=== PATIENT | male | born 1935 | race Caucasian/White ===

== ENCOUNTER 2016-03-30 10:10 | Emergency (ER) | payer MEDICARE ==
[~2016-03-30] VITALS: Ht 175.3 cm; Wt 63.5 kg
[~2016-03-30 10:10] MED LIST: AMARYL 2MG TABLE2 MG PO; AMLODIPINE5 M1 PO; ASPIRIN ADULT L81 M3 PO; CIPRO 250MG TA250 MG PO; DIFLUCAN150 MG PO; DIGOXIN0.125 MG PO; Docusate Sodiu100 MG PO; FISH OIL1000 MG PO; FLAGYL500 M1 PO; FUROSEMIDE40 MG PO; GLYBURIDE 5MG TA5 MG PO; HYDROCODONE/ACE1 TA5 PO; IBU-2200 MG OR; IBUPROFEN800 MG PO; KEFLEX 500MG.500 MG PO; LEVOTHYROXIN0.025 M2 PO; LEVOTHYROXIN0.075 M1 PO; LISINOPRIL 5MG T5 MG PO; LORTAB 5/500 501 TAB PO; LORTAB 500 MG-71 TAB; LOSARTAN POTAS100 MG PO; METFORMIN HCL1000 MG PO; METFORMIN500 MG PO; NITROFURANTOIN100 M2; OMEPRAZOLE40 MG PO; POTASSIUM CHLO10 ME3 PO; PREVALITE 4GM PO4 GM OR; PREVALITE 4GM PO4 GM PO; PRILOSEC20 MG PO
--- NOTE | 2016-03-30 10:22 | Emergency Room Report ---
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 Clinical Suspician of Infection? Mental Status: Sepsis Risk: Have you (or family members/close friends) recently traveled outside the [place]? If Yes, where/when: Have you had exposure to infectious disease within the past month? TB? Other? Specify: Source patient, RN notes reviewed, EMS Exam Limitations clinical condition Comment Pt called out as a possible stroke but when EMS arrived his glucose was 48. IV started and given 1 amp D50 and on arrival in the ED Glucose>200 and pt. alert and answers questions appropriately. His mucous membranes are dry and he is telling us he needs to urinate. Given urinal. [place] stroke evaluation is normal. He does have some mild drooping of the right side of his mouth but tongue protrudes in the midline. He has no arm drift and no leg drift Cardiac Chest Pain Chest pain indicative of cardiac No ALLERGIES Coded Allergies: Penicillins (I-RASH 03/30/16) chlordiazepoxide (STOPPED KIDNEYS 03/30/16) clidinium (STOPPPED KIDNEYS 03/30/16) darifenacin (From ENABLEX) (STOPPED KIDNEYS 03/30/16) iodine (ANXIETY/RASH 03/30/16) oxycodone (VOMITTING/HICCUPS 03/30/16) Home Medications Active Scripts Omeprazole (Omeprazole 40MG) 40 MG PO DAILY #30 ECC Ref 5 Prov: 01/08/16 Reported Medications Aspirin (Aspirin EC) 81 MG PO DAILY DIGOXIN (Digox) 0.0625 MG PO DAILY METFORMIN HCL (Metformin 1000MG) 1,000 MG PO BIDD Levothyroxine Sodium (Levothyroxine 0.075MG) 0.075 MG PO DAILY Furosemide (Furosemide 40MG) 40 MG PO DAILY OMEGA-3 FATTY ACIDS/FISH OIL (Fish Oil 1,000 MG Capsule) 1,000 MG PO DAILY POTASSIUM CHL (Potassium Chloride) 10 MEQ PO DAILY Amlodipine Besylate (Amlodipine) 5 MG PO DAILY Losartan Potassium (Losartan 100MG) 100 MG PO DAILY History Medical History General CAD? Yes Angina: Yes [place]: No Hypertension? Yes Hyperlipidemia? Yes CHF? No DVT? No PE? No COPD? Yes Asthma? No Anemia? No GERD? Yes Gastric ulcers? No GI Bleed? No Hernia? No Thyroid Problems? Yes Hypothyroidism? Yes CVA? No Seizures? No Diabetes? Yes Insulin Dependent: No Insulin Pump: No Home FSBS? Yes Renal Insuffiency? No End Stage Renal Disease? No UTI? Yes Stones? No BPH? No GB Disease: Yes Nephritic Syndrome? No Asplenia? No Hepatitis? Yes Sickle Cell Disease? No Arthritis? Yes Migraines? No Cataracts? No Glaucoma? No MRSA? No HIV? No TB? No Anxiety? No Depression? No Cancer? Yes Site: PROSTATE More? No Immunization Hx DT/Tetanus Unknown Flu 2016 Pneumonia Received In Past Surgical Hx Previous Surgery?Y RT TOTAL HIP REPLACEMENT Prostate Appendix ARTIF URINARY SPHINCTER L. 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 Musculoskeletal see HPI Psychiatric/Neurological see HPI Physical Exam Vital Signs Vital Signs Date Time Temp Pulse Resp B/P Pulse O2 O2 Flow FiO2 Ox Delivery Rate 03/30 1110 75 18 130/68 98 03/30 1011 98.1 101 18 161/114 98 - WBC >12,000 or <4,000 or 10% bands? 2 or more SIRS Criteria Met? B/P:130/68 MAP:129 Creatinine >2.0? UA output<0.5ml/kg/hr for 2 hrs? Platelet count >100,000? Lactate >2.0mmol/1? INR >1.2 or PTT > than 60 sec? Evidence of Organ Dysfunction? Provider documented clinical suspician of infection? N Sepsis Criteria Count: 1 Sepsis Risk: Low Sepsis Risk General Appearance normal appearance, WD/WN, no apparent distress Eye Exam - bilateral eye normal exam Ear, Nose, Throat dry mucous membranes Respiratory Status No: respiratory distress. Lung Sounds bilateral: normal breath sounds. 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 No Results/Orders Laboratory Tests 03/30/16 1120: POC Glucose 108 03/30/16 1040: Lactic Acid 1.6 03/30/16 0915: Digoxin 0.38 L 03/30/16 0915: Sodium 138, Potassium 3.3 L, Chloride 102, Carbon Dioxide 20 L, BUN 18, Creatinine 0.9, Estimated Creat Clear 60, Estimated GFR (MDRD) 81, Glucose 49 *L , Calcium 9.1, Total Bilirubin 0.3, AST 15, ALT 23, Alkaline Phosphatase 66, Total Protein 7.5, Albumin 3.6, Globulin 3.9 H, Albumin/Globulin Ratio 0.9 L, WBC 9.2, RBC 5.61, Hgb 15.2, Hct 45.9, MCV 81.7 L, RDW 15.3, Plt Count 342, MPV 5.6 L, Gran % 82.2 H, Gran # 7.6, Lymphocytes % 13.3, Monocytes % 4.0, Eosinophils % 0.2, Basophils % 0.3, Lymphocytes # 1.2, Monocytes # 0.4, Eosinophils # 0.0, Basophils # 0.0, PUBS MCHC 33.3, MCH 27.2, Acetone Level NONE DETECTED 03/30/16 0101: Urine Color YELLOW, Urine Appearance SL CLOUDY, Urine pH 6.0, Ur Specific [place] 1.015, Urine Protein TRACE H, Urine Ketones NEGATIVE, Urine Blood 2+ H , Urine Nitrate NEGATIVE, Urine Bilirubin NEGATIVE, Urine Urobilinogen 0.2, Ur Leukocyte Esterase NEGATIVE, Urine RBC 5-10, Urine WBC 5-10, Ur Squamous Epith Cells OCC, Urine Bacteria 2+, Urine Glucose NEGATIVE Current Medication Orders Sig/Lazaro Start time Last Medication Dose Route Stop Time Status Admin Levofloxacin/Dextrose 100 ML ONCE ONE 03/30 1130 CKDr IV 03/30 1229 Sodium Chloride 1,000 ML .STK-MED ONE 03/30 1101 DC IV Sodium Chloride 10 ML PRN PRN 03/30 1030 AC IV 03/31 1016 Sodium Chloride 10 ML PRN PRN 03/30 1015 AC IV 03/31 1015 Sodium Chloride 1,000 ML .Q8H 03/30 1015 AC 03/30 IV 03/30 2215 1116 Orders Procedure Date/time Status DIET-NOTHING BY MOUTH 03/30 L Active FINGERSTICK BLOOD SUGAR 03/30 1120 Active DIGOXIN 03/30 1109 Complete ELECTROCARDIOGRAM REQUEST 03/30 1022 Active ELECTROCARDIOGRAM REQUEST 03/30 1021 Active CULTURE, BLOOD 03/30 1020 Active ARTERIAL BLOOD GAS REQUEST 03/[address] HEAD REQ 03/30 1017 Complete CHEST-AP VIEW ONLY 03/30 1017 Active IV SALINE LOCK 03/30 1017 Active CULTURE, BLOOD 03/30 1017 Active URINALYSIS/COMPLETE 03/30 1017 Complete LACTIC ACID 03/30 1017 Complete CBC WITH AUTO DIFF 03/30 1017 Complete CHEM 12 PROFILE 03/30 1017 Complete Acetone, Serum 03/30 1017 Complete CULTURE, URINE 03/30 0101 Active CM/EKG CM/EKG EKG rate (88), non-spec. ST/Twave chgs, Atrial Fibrillation Departure Departure Time of Disposition 1200 Disposition DC Home or Self Care(routine) Clinical Impression Primary Impression: Type 2 diabetes mellitus with hypoglycemia Qualifiers: Diabetes mellitus complication detail: without coma Diabetes mellitus long term care social worker insulin use: without nursing home use Qualified Code: E11.649 - Type 2 diabetes mellitus with hypoglycemia without coma Secondary Impressions: Cystitis without hematuria Condition STABLE Referrals Tawny Wilson MD (Family) Patient Instructions DI for Hypoglycemia, DI for Urinary Tract Infection (UTI), Hypoglycemia, Urinary Tract Infection Additional Instructions Encourage liquids and oral intake and check sugars more frequently. Followup with Dr. Wilson in 4 to 5 days to recheck Urine Discharge Counseling Counseled pt/family regarding diagnosis, test results, medications/RX, home care, follow up needs Prescriptions Current Visit Scripts Levofloxacin (Levaquin 500MG) 500 MG PO DAILY #10 TAB ED Critical Care Critical Care No If Critical Care minutes are documented, the time involved in the performance of seperately reportable procedures was not counted toward critical care time documented. I directly delivered medical care to this critically ill and/or injured patient. Timely evaluation and treatment was necessary to address the significant organ system(s) dysfunction present in this patient. at 1127
[2016-03-30 10:27] LABS: URINE BILIRUBIN - DIPSTICK NEGATIVE (NEG); URINE BLOOD 2+ (NEG)
[2016-03-30 10:31] LABS: LYMPH # 1.2 K/mm3 (0.7-4.5); LYMPH % 13.3 % (10-50)
[2016-03-30 10:32] LABS: HEMOGLOBIN 15.2 g/dL (14.1-18.0)
[2016-03-30 10:34] LABS: URINE SQUAMOUS CELLS OCC #/hpf (OCC)
[2016-03-30 10:35] LABS: BUN 18 mg/dL (7-18); GFR (ESTIMATED) 81 ML/MIN (>60)
--- NOTE | 2016-03-30 11:03 | RADIOLOGY REPORT PS360 ---
CT HEAD W/O CONTRAST HISTORY: Confusion, altered mental status, altered level consciousness CONFUSED ORDERING PHYSICIAN: Francis Molina MD PATIENT AGE: 80 years COMPARISON: 03/18/2012 TECHNIQUE: Axial images obtained without contrast. Brain and bone windows reviewed. FINDINGS: No midline shift, mass effect, intracranial hemorrhage, hydrocephalus, or extra-axial fluid collection is evident. 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 The calvarium has an unremarkable appearance. Minimal amount fluid in right mastoid sinus.. The visualized paranasal sinuses are unremarkable. IMPRESSION: 1. No acute intracranial pathology. 2. Involutional changes of age. ,
[2016-03-30] MEDS ORDERED: LEVAQUIN500 MG PO (11:26)
--- NOTE | 2016-03-30 11:58 | RADIOLOGY REPORT PS360 ---
CHEST-AP VIEW ONLY HISTORY: CONFUSED ORDERING PHYSICIAN: Francis Molina MD PATIENT AGE: 80 years FINDINGS: Borderline cardiomegaly without failure. Lungs are clear. No acute bony anomalies. IMPRESSION: No change from 01/07/2016 with no acute finding
[2016-03-30 12:55] VITALS: BP 119/62
== END 2016-03-30 12:56 | disposition home or self-care (01) ==
LOC: ER 10:10
PROVIDERS: General Practice
DX: E11.69 Type 2 diabetes mellitus with other specified complication (principal); N30.00 Acute cystitis without hematuria; K21.9 Gastro-esophageal reflux disease without esophagitis; J44.9 Chronic obstructive pulmonary disease, unspecified; I10 Essential (primary) hypertension; Z79.899 Other long term (current) drug therapy

== ENCOUNTER 2016-10-29 12:15 | Emergency (ER) | payer MEDICARE ==
[~2016-10-29] VITALS: Ht 180.3 cm; Wt 94.3 kg
[~2016-10-29 12:15] MED LIST changes: +AMLODIPINE10 M2 PO; +FLOMAX 0.4MG C0.4 MG PO; +HYDROCODONE-APA1 TA1 PO; +LEVAQUIN500 MG PO
--- NOTE | 2016-10-29 14:23 | Emergency Room Report ---
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 N Clinical Suspician of Infection? N Mental Status: 1 - Regular (Normal Baseline) Sepsis Risk:Low Sepsis Risk Have you (or family members/close friends) recently traveled outside the [place]? N If Yes, where/when: Have you had exposure to infectious disease within the past month? N TB? Other? Specify: I read the above triage, The [place] is well known to me from prior ED visit. The son is telling me that he is diabetic and he has leg numbness, he has eedema of the feet and it is worse today, and he took his lasix, he denies soa, cp or paplitation. He just wants him checked. Source patient, RN notes reviewed, family, old records Exam Limitations no limitations ALLERGIES Coded Allergies: Penicillins (I-RASH 03/30/16) chlordiazepoxide (STOPPED KIDNEYS 03/30/16) clidinium (STOPPPED KIDNEYS 03/30/16) darifenacin (From ENABLEX) (STOPPED KIDNEYS 03/30/16) iodine (ANXIETY/RASH 03/30/16) oxycodone (VOMITTING/HICCUPS 03/30/16) Home Medications Active Scripts Omeprazole (Omeprazole 40MG) 40 MG PO DAILY #30 ECC Ref 5 Prov: 01/08/16 Reported Medications Aspirin (Aspirin EC) 81 MG PO DAILY DIGOXIN (Digox) 0.0625 MG PO DAILY Levothyroxine Sodium (Levothyroxine 0.075MG) 0.075 MG PO DAILY Furosemide (Furosemide 40MG) 40 MG PO DAILY OMEGA-3 FATTY ACIDS/FISH OIL (Fish Oil 1,000 MG Capsule) 1,000 MG PO DAILY POTASSIUM CHL (Potassium Chloride) 10 MEQ PO DAILY Losartan Potassium (Losartan 100MG) 100 MG PO DAILY TAMSULOSIN HCL (Flomax 0.4MG) 0.4 MG PO QHS Amlodipine Besylate (Amlodipine) 10 MG PO History Medical History General CAD? Yes Angina: Yes [place]: No Hypertension? Yes Hyperlipidemia? Yes CHF? No DVT? No PE? No COPD? Yes Asthma? No Anemia? No GERD? Yes Gastric ulcers? No GI Bleed? No Hernia? No Thyroid Problems? Yes Hypothyroidism? Yes CVA? No Seizures? No Diabetes? Yes Insulin Dependent: No Insulin Pump: No Home FSBS? Yes Renal Insuffiency? No End Stage Renal Disease? No UTI? Yes Stones? No BPH? No GB Disease: Yes Nephritic Syndrome? No Asplenia? No Hepatitis? Yes Sickle Cell Disease? No Arthritis? Yes Migraines? No Cataracts? No Glaucoma? No MRSA? No HIV? No TB? No Anxiety? No Depression? No Cancer? Yes Site: PROSTATE More? No Immunization Hx DT/Tetanus 1-4 Years Ago Flu 2016-17FSN Pneumonia Received In Past Surgical Hx Previous Surgery?Y RT TOTAL HIP REPLACEMENT Prostate Appendix ARTIF URINARY SPHINCTER L. 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 VARICOSE VEINS X3 BACK SX X3, METAL JOVANI SPRINTHER PUMP UROLOGY GALLBLADDER L HIP REDUCTION Family History Family Hx Diabetes Yes CAD Yes Hypertension No Hyperlipidemia No Cancer Yes TB No Social History Smoking Hx Smoker: Former Smoker Tobacco: No Type Cigarettes Packs/day N/A Are you/the child exposed to second-hand smoke: Yes Alcohol Alcohol: No Review of Systems All Other Systems Reviewed and Negative Constitutional no symptoms reported Eyes no symptoms reported ENT no symptoms reported. Respiratory no symptoms reported Cardiovascular no symptoms reported Gastrointestinal no symptoms reported Genitourinary no symptoms reported. Musculoskeletal see HPI (pedal edema ) Skin no symptoms reported Psychiatric/Neurological no symptoms reported Physical Exam Vital Signs Vital Signs Date Time Temp Pulse Resp B/P Pulse O2 O2 Flow FiO2 Ox Delivery Rate 10/29 1430 77 20 145/80 97 10/29 1332 66 18 138/65 97 10/29 1225 97.7 74 18 146/71 96 - WBC >12,000 or <4,000 or 10% bands? 2 or more SIRS Criteria Met? B/P:138/65 MAP:96 Creatinine >2.0? UA output<0.5ml/kg/hr for 2 hrs? Platelet count >100,000? Lactate >2.0mmol/1? INR >1.2 or PTT > than 60 sec? Evidence of Organ Dysfunction? Provider documented clinical suspician of infection? N Sepsis Criteria Count: 0 Sepsis Risk: Low Sepsis Risk General Appearance normal appearance, WD/WN Eye Exam - bilateral eye normal exam, bilateral eye PERRL, bilateral eye EOMI Ear, Nose, Throat hearing grossly normal, normal ENT inspection Neck normal inspection, non-tender, supple, full range of motion Respiratory Status Yes: trachea midline, chest symmetrical, non tender chest. No: respiratory distress. Lung Sounds bilateral: normal breath sounds, lungs clear. Cardiovascular normal exam, regular rate/rhythm, no peripheral edema, no gallop, no JVD, no murmur, no rub, normal peripheral pulses Peripheral Pulses Pulses normal Yes Gastrointestinal normal bowel sounds, normal exam, non tender, soft, no organomegaly Extremities non-tender, swelling, 2+ bilateral pedal edema, equal and symmetrical calf tenderness Neurologic alert, normal exam, stocking anthesia of both LE. Skin skin changes consistent with long-standing diabetes. Include "diabetes diabetecorum" Medical Decision Making LABS/Meds/Orders Pt receiving controlled substance in ED? No Results/Orders Laboratory Tests 10/29/16 1500: Digoxin Pending 10/29/16 1455: Sodium 140, Potassium 2.6 *L, Chloride 101, Carbon Dioxide 30, BUN 7, Creatinine 1.0, Estimated Creat Clear 79, Estimated GFR (MDRD) 72, Glucose 294 H, Calcium 8.1 L, Total Bilirubin 0.6, AST 13 L, ALT 16, Alkaline Phosphatase 111, Troponin I 0.02, B-Natriuretic Peptide 179 H, Total Protein 7.3, Albumin 3.7, Globulin 3.6 H, Albumin/Globulin Ratio 1.0 L, WBC 6.0, RBC 4.86, Hgb 12.4 L, Hct 38.5 L, MCV 79.3 L, RDW 15.6, Plt Count 290, MPV 6.7 L, Gran % 59.0, Gran # 3.5, Lymphocytes % 31.7, Monocytes % 4.4, Eosinophils % 4.0, Basophils % 0.9, Lymphocytes # 1.9, Monocytes # 0.3, Eosinophils # 0.2, Basophils # 0.1, PUBS MCHC 32.3, MCH 25.6 L Current Medication Orders Sig/Lazaro Start time Last Medication Dose Route Stop Time Status Admin Potassium Chloride 0 .STK-MED ONE 10/29 1542 DC PO Potassium Chloride 40 MEQ ONCE ONE 10/29 1530 DC PO 10/29 1531 Orders Procedure Date/time Status DIGOXIN 10/29 1528 Active TROPONIN I 10/29 1423 Complete CBC WITH AUTO DIFF 10/29 1423 Complete CHEM 12 PROFILE 10/29 1423 Complete BRAIN NATRIURETIC PEPTIDE 10/29 1423 Complete CM/EKG CM/EKG Comments Normal sinus rhythm 66/m baseline artifact no acute findings XRAY/CT/US XRAY/CT/US XRAY chest XR interpretation by reviewed by me Xray Results normal/NAD Departure Departure Time of Disposition 1421 Disposition DC Home or Self Care(routine) Clinical Impression Primary Impression: Pedal edema Secondary Impressions: Diabetic neuropathy, S/P hip replacement Condition STABLE Referrals Katie BURT,Tawny Gill (PCP/Family) Additional Instructions The chico and his son were aware of the left perihialr mass and being followed by Dr. Wilson. His potassium was low, was given 40 meq and was instructed to take an additional 40 meq at 8 PM tonight and recheck with Dr. Almanzar tomorrow for another blood work. I called dr. Wilson and he agreed with the DC and follow up and to call in am to be seen same day. Dr. Mancia Discharge Counseling Counseled pt/family regarding diagnosis, test results, medications/RX, home care, follow up needs ED Critical Care Critical Care No If Critical Care minutes are documented, the time involved in the performance of seperately reportable procedures was not counted toward critical care time documented. I directly delivered medical care to this critically ill and/or injured patient. Timely evaluation and treatment was necessary to address the significant organ system(s) dysfunction present in this patient. at 1540
[2016-10-29 15:03] LABS: HEMOGLOBIN 12.4 g/dL (14.1-18.0); LYMPH # 1.9 K/mm3 (0.7-4.5); LYMPH % 31.7 % (10-50)
--- NOTE | 2016-10-29 15:27 | RADIOLOGY REPORT PS360 ---
CHEST(2 VIEWS-NOT PORTABLE) HISTORY: Shortness of breath edema ORDERING PHYSICIAN: Octavia Mancia MD PATIENT AGE: 81 years COMPARISON: 03/31/2016 FINDINGS: Unremarkable cardiovascular structures. There is a new nodular density in the left perihilar region which measures 2 x 1.6 cm this nodule is present well circumscribed but has developed since the previous exam. Neoplasm is considered.. There are fibrotic changes in the left midlung laterally. Right lung is clear. No acute bony anomalies. IMPRESSION: New 2 x 1.6 and a left perihilar nodule suspicious for neoplasm. Consider chest CT for further evaluation ER was notified of the results by phone 10/29/2016 at 1520 hours
[2016-10-29 15:48] VITALS: BP 145/80
== END 2016-10-29 15:49 | disposition home or self-care (01) ==
LOC: ER 12:15
PROVIDERS: Emergency Medicine
DX: R60.9 Edema, unspecified (principal); E11.42 Type 2 diabetes mellitus with diabetic polyneuropathy; Z96.642 Presence of left artificial hip joint; Z79.82 Long term (current) use of aspirin; Z79.899 Other long term (current) drug therapy; I25.10 Atherosclerotic heart disease of native coronary artery without angina pectoris; I10 Essential (primary) hypertension; Z87.891 Personal history of nicotine dependence; E78.5 Hyperlipidemia, unspecified; J44.9 Chronic obstructive pulmonary disease, unspecified; E03.9 Hypothyroidism, unspecified

== ENCOUNTER 2016-12-30 13:53 | Inpatient (IN) | payer MEDICARE ==
[~2016-12-30] VITALS: Ht 180.3 cm; Wt 79.9 kg
[2016-12-30 13:56] VITALS: BP 161/98
--- OUTSIDE RECORDS SUMMARY | 2016-12-30 14:05 | External Medical Summary Rpt | CCD ---
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
--- OUTSIDE RECORDS SUMMARY | 2016-12-30 14:05 | External Medical Summary Rpt | CCD ---
Author Author , THELMA RENEE Address Unknown Phone [email or web address] Immunization Name Date Rout CVX Reac Dose Comm Prov Is Faci e tion ent ider Refu lity Give sed n Infl 09-2 Intr 135 0.5 Hist D049 No D049 uenz 2-20 amus mL oric 01 01 a, 17 cula al High r Info rmat Dose ion - Sour ce Unsp ecif ied PCV1 06-0 Intr 133 999 Hist D049 No D049 3 2-20 amus oric 01 01 17 cula al r Info rmat ion - Sour ce Unsp ecif ied
--- OUTSIDE RECORDS SUMMARY | 2016-12-30 14:05 | External Medical Summary Rpt | CCD ---
Author Author [employer] Organization [employer] Address Unknown Phone Unavailable Purpose Continuity of Care Document - through 2016
--- OUTSIDE RECORDS SUMMARY | 2016-12-30 14:05 | External Medical Summary Rpt | CCD ---
Author Author , THELMA RENEE Address Unknown Phone [email or web address] Immunization Name Date Rout CVX Reac Dose [...]
--- OUTSIDE RECORDS SUMMARY | 2016-12-30 14:06 | External Medical Summary Rpt ---
Author Author [facility], [facility] [employer] Organization [facility] [employer] Address Unknown Phone Unavailable Results Digoxin [Mass/volume] in Serum or Plasma Observa Value Referen Units Interpr Notes Date tion ce etation Range Digoxin 1.15 - ng/mL Low No Sep 12 [Mass/vol 2.56 informati 2017 3:00 ume] in on in PM Serum or source Plasma data Natriutietic peptide B [Mass/volume] in Serum or Plasma Observa Value Referen Units Interpr Notes Date tion ce etation Range Natriutie 0 - 100 pg/mL High No Sep 12 tic informati 2017 2:55 peptide B on in PM source [Mass/vol data ume] in Serum or Plasma Comprehensive metabolic 2000 panel in Serum or Plasma Observa Value Referen Units Interpr Notes Date tion ce etation Range Albumin/G 1.1 - 1.8 No Low No Sep 12 lobulin informati informati 2017 2:55 [Mass on in on in PM ratio] in source source Serum or data data Plasma Albumin 3.4 - 5.0 gm/dL Normal No Sep 12 [Mass/vol informati 2017 2:55 ume] in on in PM Serum or source Plasma data Alkaline 46 - 116 U/L Normal No Sep 12 phosphata informati 2017 2:55 se on in PM [Enzymati source c data activity/ volume] in Serum or Plasma Bilirubin 0.2 - 1.0 mg/dL Normal No Sep 12 .total informati 2017 2:55 [Mass/vol on in PM ume] in source Serum or data Plasma Urea 7 - 18 mg/dL Normal No Sep 12 nitrogen informati 2017 2:55 [Mass/vol on in PM ume] in source Serum or data Plasma Calcium 8.5 - mg/dL Low No Sep 12 [Mass/vol 10.1 informati 2017 2:55 ume] in on in PM Serum or source Plasma data Chloride 98 - 107 mmoL/L Normal No Sep 12 [Moles/vo informati 2017 2:55 lume] in on in PM Serum or source Plasma data Carbon 21.0 - mmoL/L Normal No Sep 12 dioxide, 32.0 informati 2017 2:55 total on in PM [Moles/vo source lume] in data Serum or Plasma Creatinin 0.70 - mg/dL Normal No Sep 12 e 1.30 informati 2017 2:55 [Mass/vol on in PM ume] in source Serum or data Plasma Creatinin 50 - 200 ML/MIN Normal No Sep 12 e renal informati 2017 2:55 clearance on in PM source predicted data by Cockcroft -Gault formula Estimated >60 ML/MIN No REFERENCE Sep 12 informati RANGE: 2017 2:55 glomerula on in >60 PM r source ML/MIN/1. filtratio data 73 SQUARE n rate METERSIf (GF this patient is -A merican, then multiply theresult by 1.210. Globulin 1.3 - 3.2 gm/dL High No Sep 12 [Mass/vol informati 2017 2:55 ume] in on in PM Serum source data Glucose 74 - 106 mg/dL High No Sep 12 [Mass/vol informati 2017 2:55 ume] in on in PM Serum or source Plasma data Potassium 3.5 - 5.1 mmoL/L Low alert Sep 12 2016 2:55 [Moles/vo CRITICAL PM lume] in RESULTS Serum or Plasma RESU LTS CALLED TO: [facility] 10/29/16 1523 Huber,[place] nda Sodium 136 - 145 mmoL/L Normal No Sep 12 [Moles/vo informati 2017 2:55 lume] in on in PM Serum or source Plasma data Aspartate 15 - 37 U/L Low No Sep 12 informati 2017 2:55 aminotran on in PM sferase source [Enzymati data c activity/ volume] in Serum or Plasma Alanine 12 - 78 U/L Normal No Sep 12 aminotran informati 2017 2:55 sferase on in PM [Enzymati source c data activity/ volume] in Serum or Plasma Protein 6.4 - 8.2 gm/dL Normal No Sep 12 [Mass/vol informati 2017 2:55 ume] in on in PM Serum or source Plasma data Troponin I.cardiac [Mass/volume] in Serum or Plasma Observa Value Referen Units Interpr Notes Date tion ce etation Range Troponin 0.00 - ng/mL Normal No Sep 12 I.cardiac 0.06 informati 2016 2:55 on in PM [Mass/vol source ume] in data Serum or Plasma CBC W Auto Differential panel in Blood Observa Value Referen Units Interpr Notes Date tion ce etation Range Basophils 0 - 0.2 K/MM3 Normal No Sep 12 inform2016 2:55 [#/volume on in PM ] in source Blood by data Automated count Basophils 0.1 - 2.0 % Normal No Sep 12 /100 informati 2016 2:55 leukocyte on in PM s in source Blood by data Automated count Eosinophi 0.0 - 0.4 K/mm3 Normal No Sep 12 ls informati 2016 2:55 [#/volume on in PM ] in source Blood by data Automated count Eosinophi 0.1 - % Normal No Sep 12 ls/100 12.0 informati 2016 2:55 leukocyte on in PM s in source Blood by data Automated count Granulocy 1.3 - 8.0 K/mm3 Normal No Sep 12 ramos informati 2016 2:55 [#/volume on in PM ] in source Blood by data Automated count Granulocy 37.0 - % Normal No Sep 12 ramos/100 80.0 informati 2016 2:55 leukocyte on in PM s in source Blood by data Automated count Hematocri 42.0 - % Low No Sep 12 t [Volume 52.0 informati 2016 2:55 on in PM Fraction] source of Blood data Hemoglobi 14.1 - g/dL Low No Sep 12 n 18.0 informati 2016 2:55 [Mass/vol on in PM ume] in source Blood data Lymphocyt 0.7 - 4.5 K/mm3 Normal No Sep 12 es informati 2016 2:55 [#/volume on in PM ] in source Unspecifi data ed specimen by Automated count Lymphocyt 10 - 50 % Normal No Sep 12 es informati 2016 2:55 [#/volume on in PM ] in source Unspecifi data ed specimen by Automated count Erythrocy 27 - 31.2 pg Low No Sep 12 te mean informati 2016 2:55 corpuscul on in PM ar source hemoglobi data n [Entitic mass] Erythrocy 31.8 - g/dl Normal No Sep 12 te mean 35.4 informati 2016 2:55 corpuscul on in PM ar source hemoglobi data n concentra tion [Mass/vol ume] by Automated count Erythrocy 82.2 - fl Low No Sep 12 te mean 97.8 informati 2016 2:55 corpuscul on in PM ar volume source [Entitic data volume] by Automated count Monocytes 0.1 - 1.0 K/mm3 Normal No Sep 12 informati 2017 2:55 [#/volume on in PM ] in source Blood by data Automated count Monocytes 1.7 - 9.3 % Normal No Sep 12 /100 informati 2017 2:55 leukocyte on in PM s in source Blood by data Automated count Platelet 7.4 - fl Low No Sep 12 mean 10.4 informati 2017 2:55 volume on in PM [Entitic source volume] data in Blood by Automated count Platelets 142 - 424 K/mm3 Normal No Sep 12 informati 2017 2:55 [#/volume on in PM ] in source Blood data Erythrocy 4.6 - 6.2 M/mm3 Normal No Sep 12 ramos informati 2016 2:55 [#/volume on in PM ] in source Amniotic data fluid Erythrocy 11.5 - % Normal No Sep 12 te 17.5 informati 2016 2:55 distribut on in PM ion width source [Entitic data volume] by Automated count Leukocyte 4.8 - K/MM3 Normal No Sep 12 s 10.8 informati 2016 2:55 [#/volume on in PM ] in source Blood data
--- OUTSIDE RECORDS SUMMARY | 2016-12-30 14:06 | External Medical Summary Rpt ---
[...] Serum or Plasma RESU LTS CALLED TO: [facility] 10/29/16 1523 Huber,[place] nda Sodium 136 - 145 mmoL/L Normal [...]
[2016-12-30 14:11] LABS: HEMOGLOBIN 12.8 g/dL (14.1-18.0); LYMPH # 4.7 K/mm3 (0.7-4.5)
--- NOTE | 2016-12-30 14:18 | RADIOLOGY REPORT PS360 ---
CT HEAD W/O CONTRAST HISTORY: Weakness, syncope R/O STROKE ORDERING PHYSICIAN: Geo Anderson MD PATIENT AGE: 81 years COMPARISON: None TECHNIQUE: Axial images obtained without contrast. Brain and bone windows reviewed. FINDINGS: No midline shift, mass effect, intracranial hemorrhage, hydrocephalus, or extra-axial fluid collection is evident. There is generalized atrophy. The calvarium has an unremarkable appearance. Small amount fluid is present in left mastoid sinus. The visualized paranasal sinuses are unremarkable. IMPRESSION: 1. Atrophy, no acute intracranial findings. 2. Left mastoid effusion. 3. There is no evidence of intracranial hemorrhage, focal mass, or acute territorial infarction. A negative CT does not exclude an acute CVA. A follow-up head CT or MRI is recommended if neurological symptoms persist
--- NOTE | 2016-12-30 14:36 | RADIOLOGY REPORT PS360 ---
CHEST-PORTABLE HISTORY: Chest pain and shortness of breath with weakness WEAKNESS ORDERING PHYSICIAN: Geo Anderson MD PATIENT AGE: 81 years COMPARISON: 10/29/2016 FINDINGS: The cardiomediastinal silhouette and pulmonary vascularity are within normal limits. There is an enlarging left upper lobe nodule measuring 2.7 x 2.4 cm previously measuring 2 x 1.6 cm consistent with neoplasm either primary or due to metastasis. The remaining lungs are clear. No acute bony anomalies. IMPRESSION: Enlarging left upper lobe nodule patient's for neoplasm either primary or metastatic. Chest CT may be of further value.
[2016-12-30 15:01] LABS: BUN 12 mg/dL (7-18)
[2016-12-30 15:06] LABS: URINE BILIRUBIN - DIPSTICK NEGATIVE (NEG); URINE BLOOD NEGATIVE (NEG)
[2016-12-30 15:06] LABS: GFR (ESTIMATED) 72 ML/MIN (>60)
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
--- OUTSIDE RECORDS SUMMARY | 2016-12-30 15:49 | External Medical Summary Rpt | CCD ---
Author Author , THELMA RENEE Address Unknown Phone [email or web address] Immunization Name Date Rout CVX Reac Dose [...]
--- OUTSIDE RECORDS SUMMARY | 2016-12-30 15:49 | External Medical Summary Rpt | CCD ---
Author Author , THELMA Organization THELMA Address Unknown Phone [email or web address] Purpose Continuity of Care Document - 10-29-2016 [...] Z96.649 PRESENCE OF UNSPECIFIED ARTIFICIAL HIP JOINT Results Labs Lab Lab Date Result Refere Interp Status Commen Order Detail nces retati t Range on Urinalysis dipstick W Reflex Microscopic panel in Urine (12-30-2016 14:55) Bacteri NONE O complet a 017 ed [Presen 14:55 ce] in Urine sedimen t by Light microsc opy Erythro NONE 0 complet cytes 017 ed [Presen 14:55 ce] in Urine sedimen t by Light microsc opy Epithel 5-10 OCC complet ial 017 ed cells.s 14:55 quamous [Presen ce] in Urine sedimen t by Microsc opy high power field Urinalysis dipstick W Reflex Microscopic panel in Urine (12-30-2016 14:55) Appeara CLEAR CLEAR complet nce of 017 ed Urine 14:55 Bilirub NEGATIV NEG complet in 017 E ed [Presen 14:55 ce] in Urine by Test strip Erythro NEGATIV NEG complet cytes 017 E ed [Presen 14:55 ce] in Urine Color YELLOW YELLOW complet of 017 ed Urine 14:55 Ketones TRACE NEG Abnorma complet 017 l ed [Presen 14:55 ce] in Urine by Automat ed test strip Mucus NEGATIV NEG complet [Presen 017 E ed ce] in 14:55 Urine sedimen t by Light microsc opy Nitrite NEGATIV NEG complet 017 E ed [Presen 14:55 ce] in Urine by Test strip Urobili 0.2 NEG complet nogen 017 ed [Presen 14:55 ce] in Urine by Test strip
--- OUTSIDE RECORDS SUMMARY | 2016-12-30 15:49 | External Medical Summary Rpt | CCD ---
Author Author , THELMA RENEE Address Unknown Phone [email or web address] Immunization Name Date Rout CVX Reac Dose [...]
--- OUTSIDE RECORDS SUMMARY | 2016-12-30 15:49 | External Medical Summary Rpt | CCD ---
Author Author , THELMA Organization THELMA Address Unknown Phone [email or web address] Purpose Continuity of Care Document - 10-29-2016 [...]
--- OUTSIDE RECORDS SUMMARY | 2016-12-30 15:50 | External Medical Summary Rpt ---
Author Author THELMA Garcia, [facility] [employer] Organization [facility] [employer] Address Unknown Phone Unavailable Results Urinalysis dipstick W Reflex Microscopic panel in Urine Observa Value Referen Units Interpr Notes Date tion ce etation Range Appeara CLEAR CLEAR No No No Dec 30 nce of informa informa informa 2017 Urine tion in tion in tion in 2:55 PM source source source data data data Bacteri NONE O No No No Dec 30 a informa informa informa 2016 [Presen tion in tion in tion in 2:55 PM ce] in source source source Urine data data data sedimen t by Light microsc opy Bilirub NEGATIV NEG No No No Dec 30 in E informa informa informa 2016 [Presen tion in tion in tion in 2:55 PM ce] in source source source Urine data data data by Test strip Erythro NEGATIV NEG No No No Dec 30 cytes E informa informa informa 2016 [Presen tion in tion in tion in 2:55 PM ce] in source source source Urine data data data Color YELLOW YELLOW No No No Dec 30 of informa informa informa 2016 Urine tion in tion in tion in 2:55 PM source source source data data data Glucose NEG No High No Dec 30 [Mass/vol informati informati 2016 2:55 ume] in on in on in PM Urine by source source Test data data strip Ketones TRACE NEG mg/dL Abnorma No Dec 30 l informa 2016 [Presen tion in 2:55 PM ce] in source Urine data by Automat ed test strip Mucus NEGATIV NEG No No No Dec 30 [Presen E informa informa informa 2016 ce] in tion in tion in tion in 2:55 PM Urine source source source sedimen data data data t by Light microsc opy Nitrite NEGATIV NEG No No No Dec 30 E informa informa informa 2016 [Presen tion in tion in tion in 2:55 PM ce] in source source source Urine data data data by Test strip pH of 5.0 - 8.5 No Normal No Dec 30 Urine informati informati 2017 2:55 on in on in PM source source data data Protein NEG mg/dL No No Dec 30 [Mass/vol informati informati 2016 2:55 ume] in on in on in PM Urine by source source Automated data data test strip Erythro NONE 0 rbc/hpf No No Dec 30 cytes informa informa 2016 [Presen tion in tion in 2:55 PM ce] in source source Urine data data sedimen t by Light microsc opy Specific 1.005 - No Normal No Dec 30 gravity 1.030 informati informati 2016 2:55 of Urine on in on in PM source source data data Epithel 5-10 OCC #/hpf No No Dec 30 ial informa informa 2016 cells.s tion in tion in 2:55 PM quamous source source data data [Presen ce] in Urine sedimen t by Microsc opy high power field Urobili 0.2 NEG E.U./dL No No Dec 30 nogen informa informa 2016 [Presen tion in tion in 2:55 PM ce] in source source Urine data data by Test strip Leukocyte O wbc/hpf No No Dec 30 s informati informati 2016 2:55 [#/volume on in on in PM ] in source source Urine data data Urinalysis dipstick W Reflex Microscopic panel in Urine Observa Value Referen Units Interpr Notes Date tion ce etation Range Appeara CLEAR CLEAR No No No Dec 30 nce of informa informa informa 2016 Urine tion in tion in tion in 2:55 PM source source source data data data Bilirub NEGATIV NEG No No No Dec 30 in E informa informa informa 2016 [Presen tion in tion in tion in 2:55 PM ce] in source source source Urine data data data by Test strip Erythro NEGATIV NEG No No No Dec 30 cytes E informa informa informa 2016 [Presen tion in tion in tion in 2:55 PM ce] in source source source Urine data data data Color YELLOW YELLOW No No No Dec 30 of informa informa informa 2017 Urine tion in tion in tion in 2:55 PM source source source data data data Glucose NEG No High No Dec 30 [Mass/vol informati informati 2016 2:55 ume] in on in on in PM Urine by source source Test data data strip Ketones TRACE NEG mg/dL Abnorma No Dec 30 l informa 2016 [Presen tion in 2:55 PM ce] in source Urine data by Automat ed test strip Mucus NEGATIV NEG No No No Dec 30 [Presen E informa informa informa 2016 ce] in tion in tion in tion in 2:55 PM Urine source source source sedimen data data data t by Light microsc opy Nitrite NEGATIV NEG No No No Dec 30 E informa informa informa 2016 [Presen tion in tion in tion in 2:55 PM ce] in source source source Urine data data data by Test strip pH of 5.0 - 8.5 No Normal No Dec 30 Urine informati informati 2016 2:55 on in on in PM source source data data Protein NEG mg/dL No No Dec 30 [Mass/vol informati informati 2016 2:55 ume] in on in on in PM Urine by source source Automated data data test strip Specific 1.005 - No Normal No Dec 30 gravity 1.030 informati informati 2016 2:55 of Urine on in on in PM source source data data Urobili 0.2 NEG E.U./dL No No Dec 30 nogen informa informa 2016 [Presen tion in tion in 2:55 PM ce] in source source Urine data data by Test strip Magnesium [Moles/volume] in Unspecified specimen Observa Value Referen Units Interpr Notes Date ti ce etation Range Magnesium 1.4 - 2.2 mg/dL Normal No Dec 30 informati 2016 1:55 [Moles/vo on in PM lume] in source Unspecifi data ed specimen Amylase [Enzymatic activity/volume] in Serum or Plasma Observa Value Referen Units Interpr Notes Date ti ce etation Range Amylase 25 - 115 U/L Normal No Dec 30 [Enzymati informati 2016 1:55 c on in PM activity/ source volume] data in Serum or Plasma Lipase [Enzymatic activity/volume] in Serum or Plasma Observa Value Referen Units Interpr Notes Date ti ce etation Range Lipase 73 - 393 U/L Normal No Dec 30 [Enzymati 2016 1:55 c on in PM activity/ source volume] data in Serum or Plasma CBC W Auto Differential panel in Blood Observa Value Referen Units Interpr Notes Date tion ce etation Range Basophils 0 - 0.2 K/MM3 Normal No Dec 302016 1:55 [#/volume on in PM ] in source Blood by data Automated count Basophils 0.1 - 2.0 % Normal No Dec 30 /100 inform2016 1:55 leukocyte on in PM s in source Blood by data Automated count Eosinophi 0.0 - 0.4 K/mm3 Normal No Dec 30 ls 2016 1:55 [#/volume on in PM ] in source Blood by data Automated count Eosinophi 0.1 - % Normal No Dec 30 ls/100 12.0 inform2016 1:55 leukocyte on in PM s in source Blood by data Automated count Granulocy 1.3 - 8.0 K/mm3 Normal No Dec 30 ramos 2016 1:55 [#/volume on in PM ] in source Blood by data Automated count Granulocy 37.0 - % Normal No Dec 30 ramos/100 80.0 2016 1:55 leukocyte on in PM s in source Blood by data Automated count Hematocri 42.0 - % Low Dec 30 t [Volume 52.0 2016 1:55 on in PM Fraction] source of Blood data Hemoglobi 14.1 - g/dL Low Dec 30 n 18.0 2016 1:55 [Mass/vol on in PM ume] in source Blood data Lymphocyt 0.7 - 4.5 K/mm3 High No Dec 30 es 2016 1:55 [#/volume on in PM ] in source Unspecifi data ed specimen by Automated count Lymphocyt 10 - 50 % Normal Dec 30 es 2016 1:55 [#/volume on in PM ] in source Unspecifi data ed specimen by Automated count Erythrocy 27 - 31.2 pg Low Dec 30 te mean 2016 1:55 corpuscul on in PM ar source hemoglobi data n [Entitic mass] Erythrocy 31.8 - g/dl Low Dec 30 te mean 35.4 informati 2016 1:55 corpuscul on in PM ar source hemoglobi data n concentra tion [Mass/vol ume] by Automated count Erythrocy 82.2 - fl Low No Dec 30 te mean 97.8 informati 2016 1:55 corpuscul on in PM ar volume source [Entitic data volume] by Automated count Monocytes 0.1 - 1.0 K/mm3 Normal No Dec 30 informati 2016 1:55 [#/volume on in PM ] in source Blood by data Automated count Monocytes 1.7 - 9.3 % Normal No Dec 30 /100 informati 2017 1:55 leukocyte on in PM s in source Blood by data Automated count Platelet 7.4 - fl Low No Dec 30 mean 10.4 informati 2016 1:55 volume on in PM [Entitic source volume] data in Blood by Automated count Platelets 142 - 424 K/mm3 No Dec 30 informati informati 2016 1:55 [#/volume on in on in PM ] in source source Blood data data Erythrocy 4.6 - 6.2 M/mm3 Normal No Dec 30 ramos informati 2016 1:55 [#/volume on in PM ] in source Amniotic data fluid Erythrocy 11.5 - % Normal Dec 30 te 17.5 informati 2016 1:55 distribut on in PM ion width source [Entitic data volume] by Automated count Leukocyte 4.8 - K/MM3 High Dec 30 s 10.8 informati 2016 1:55 [#/volume on in PM ] in source Blood data Digoxin [Mass/volume] in Serum or Plasma Observa Value Referen Units Interpr Notes Date tion ce etation Range Digoxin 1.15 - ng/mL Low No Sep 12 [Mass/vol 2.56 informati 2016 3:00 ume] in on in PM Serum [...] Low No Sep 12 lobulin informati informati 2016 2:55 [Mass on in on in PM [...] Serum or Plasma RESU LTS CALLED TO: [facility] 10/29/16 1523 [place] nda Sodium 136 - 145 mmoL/L Normal No Sep 12 [Moles/vo inform2016 2:55 lume] in on in PM Serum or source Plasma data Aspartate 15 - 37 U/L Low No Sep 12 inform2016 2:55 aminotran on in PM sferase source [Enzymati data c activity/ volume] in Serum or Plasma Alanine 12 - 78 U/L Normal No Sep 12 aminotran inform2016 2:55 sferase on in PM [Enzymati source c data activity/ volume] in Serum or Plasma Protein 6.4 - 8.2 gm/dL Normal No Sep 12 [Mass/vol informati 2016 2:55 ume] in on in PM Serum or source Plasma data Troponin I.cardiac [Mass/volume] in Serum or Plasma Observa Value Referen Units Interpr Notes Date tion ce etation Range Troponin 0.00 - ng/mL Normal No Sep 12 I.cardiac 0.06 inform2016 2:55 on in PM [Mass/vol source ume] in data Serum or Plasma CBC W Auto Differential panel in Blood Observa Value Referen Units Interpr Notes Date tion ce etation Range Basophils 0 - 0.2 K/MM3 Normal No Sep 12 inform2016 2:55 [#/volume on in PM ] in source Blood by data Automated count Basophils 0.1 - 2.0 % Normal No Sep 12 /100 inform2016 2:55 leukocyte on in PM s in [...] No Sep 12 t [Volume 52.0 informati 2017 2:55 on in PM Fraction] source of Blood data Hemoglobi 14.1 - g/dL Low No Sep 12 n 18.0 informati 2017 2:55 [Mass/vol on in PM ume] in source Blood data Lymphocyt 0.7 - 4.5 K/mm3 Normal No Sep 12 es informati 2017 2:55 [#/volume on in PM ] in source Unspecifi data ed specimen by Automated count Lymphocyt 10 - 50 % Normal No Sep 12 es informati 2017 2:55 [#/volume on in PM ] in source Unspecifi data ed specimen by Automated count Erythrocy 27 - 31.2 pg Low No Sep 12 te mean informati 2017 2:55 corpuscul on in PM ar source hemoglobi data n [Entitic mass] Erythrocy 31.8 - g/dl Normal No Sep 12 te mean 35.4 informati 2017 2:55 corpuscul on in PM ar source hemoglobi data n concentra tion [Mass/vol ume] by Automated count Erythrocy 82.2 - fl Low No Sep 12 te mean 97.8 informati 2017 2:55 corpuscul on in PM ar volume [...] M/mm3 Normal No Sep 12 ramos informati 2017 2:55 [#/volume on in PM ] in source Amniotic data fluid Erythrocy 11.5 - % Normal No Sep 12 te 17.5 informati 2017 2:55 distribut on in PM ion width source [Entitic data volume] by Automated count Leukocyte 4.8 - K/MM3 Normal No Sep 12 s 10.8 informati 2016 2:55 [#/volume on in PM ] in source Blood data
--- OUTSIDE RECORDS SUMMARY | 2016-12-30 15:50 | External Medical Summary Rpt ---
[...] Serum or Plasma RESU LTS CALLED TO: [facility] 10/29/16 1523 Huber,[place] nda Sodium 136 - 145 mmoL/L Normal [...]
--- NOTE | 2016-12-30 16:32 | RADIOLOGY REPORT PS360 ---
CT CHEST W/O CONTRAST HISTORY: Solitary pulmonary nodule, chest pain, abnormal chest x-ray CHEST PAIN ORDERING PHYSICIAN: Tawny Wilson MD PATIENT AGE: 81 years TECHNIQUE: Axial images obtained without contrast. COMPARISON: Chest x-ray of the same day FINDINGS: There are few scattered small lymph nodes in the mediastinum. No mediastinal or hilar adenopathy or mass. The right main pulmonary artery is slightly prominent at 3.4 cm. There are severe coronary artery calcifications. No obvious pericardial effusion. There is a small hiatal hernia. There is evidence of old granulomatous disease. There is a 2.4 x 2.3 cm macrolobulated or soft tissue mass in the anterior segment of the left upper lobe suspicious for neoplasm. There is some minimal patchy infiltrate posterior to this nodule. No other nodules are evident. There are atelectatic changes in the lung bases. Very minimal nodularity along the right hemidiaphragm centrally measuring 6 mm nonspecific and may be due to partial volume averaging artifact. No acute bony anomalies. No effusions or lobar consolidation or collapse. IMPRESSION: 1. 2.4 cm solitary pulmonary nodule in left upper lobe which is increased in size on radiograph consistent with neoplasm and may be related to primary bronchogenic neoplasm. 2. Mild bibasilar atelectasis. 3. Small hiatal hernia. 4. Coronary artery disease
--- NOTE | 2016-12-30 16:39 | RADIOLOGY REPORT PS360 ---
CT ABD PELVIS W/O CONTRAST CLINICAL INDICATION: Abdominal pain, evaluate for metastatic disease ABD PAIN ORDERING PHYSICIAN: Tawny Wilson MD PATIENT AGE: 81 years COMPARISON: 03/20/2015 TECHNIQUE: Axial images obtained with sagittal and coronal reformats. PROCEDURE: Oral Contrast: None IV Contrast: None . FINDINGS: There is a small hiatal hernia. There are at least 4 isodense hepatic lesions. The right hepatic lobe measuring up to 6 mm and one in the left hepatic dome superiorly at 6 mm. These are nonspecific and could be due to small cysts or metastatic foci. The adrenal glands and bleeding and pancreas are unremarkable. 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 There has been a prior cholecystectomy. No obstructing renal or ureteral calculi are evident. Slight hyperdensity noted in the superior pole the left kidney at the cortical medullary junction nonspecific. No intra-abdominal mass or abnormal fluid collection is evident. Penile prosthesis is present within the gallbladder in the right lower pelvic region. The pelvis is obscured somewhat due to artifact bilateral hip prosthesis. No acute bony anomalies. There is diverticulosis of the sigmoid colon but no evidence of diverticulitis. IMPRESSION: 1. 4 isodense small liver lesions. These are too small to categorize and could very well represent small cysts. Cannot exclude the possibility of small metastasis. 3. Hiatal hernia. 4. Other nonacute findings as described above
[2016-12-30] MEDS ORDERED: IBU800 MG PO (16:43)
[2016-12-30] MEDS ORDERED: CHOLESTYRA PO (16:44)
[2016-12-30] MEDS ORDERED: REMERON SOLTAB15 MG PO (16:45)
[2016-12-30] MEDS ORDERED: RISPERDAL 0.20.25 MG PO (16:45)
[2016-12-30] MEDS ORDERED: METOLAZONE 5MG T5 MG PO (16:46)
[2016-12-30] MEDS ORDERED: TRAMADOL 50MG T50 MG PO (16:47)
[2016-12-30] MEDS ORDERED: NORCO 325 MG-51 TAB PO (16:48)
--- NOTE | 2016-12-30 16:49 | HISTORY AND PHYSICAL REPORT ---
History and Physical (FCA) Date of admission: 12/30/16 Chief complaint: Syncope History: History of Present Illness: Mr Rodriguez is an 81 year old male with a history of COPD, HLP, T2DM, DJD, Prostate CA, GERD Atrial fib, and Hypothyroidism who had a syncopal episode when in his car in the [facility] parking lot. His son was with him at the time and assisted him to the ER via wheelchair. He was felt to be having a stroke and had an immediated CT of the head which showed nothing acute. Patient did complain of CP on the way to CT but denies now. He also denies nausea and vomiting although he vomited on the way to CT. His nurse noted multiple PVC's. With evaluation he was found to have a lung nodule on chest CT. Hewas admitted for further evaluation and treatment. At the time of this exam he denies nausea, CP and SOB. Past Medical History: Medical History: CAD? Yes Angina: Yes MO: No Hypertension? Yes Hyperlipidemia? Yes CHF? No DVT? No PE? No COPD? Yes Asthma? No Anemia? No GERD? Yes Gastric ulcers? No GI Bleed? No Hernia? No Thyroid Problems? Yes Hypothyroidism? Yes CVA? No Seizures? No Diabetes? Yes Insulin Dependent: No Insulin Pump: No Home FSBS? Yes Renal Insuffiency? No UTI? Yes Stones? No BPH? No GB Disease: Yes Nephritic Syndrome? No Asplenia? No Hepatitis? No Sickle Cell Disease? No Arthritis? Yes Migraines? No Cataracts? No Glaucoma? No MRSA? No HIV? No TB? No Anxiety? No Depression? No Cancer? Yes Site: PROSTATE More? No Additional hx: DJD AT FIB Surgical history: Previous Surgery?Y RT TOTAL HIP REPLACEMENT Prostate Appendix ARTIF URINARY SPHINCTER L. 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 VARICOSE VEINS X3 BACK SX X3, METAL JOVANI SPRINTHER PUMP UROLOGY GALLBLADDER L HIP REDUCTION Medications: Active Scripts Omeprazole (Omeprazole 40MG) 40 MG PO DAILY #30 ECC Ref 5 Prov: 01/08/16 Reported Medications Aspirin (Aspirin EC) 81 MG PO DAILY Amlodipine Besylate (Amlodipine) 5 MG PO DAILY Ibuprofen (MOTRIN 800MG (generic) Tablet) 800 MG PO TID CHOLESTYRAMINE/ASPARTAME (Cholestyramine Light Packet) 4 GM PO BID Mirtazapine (Remeron) 15 MG PO QHS Risperidone (Risperdal 0.25MG Tab) 0.25 MG PO BID Metolazone (Metolazone 5MG Tablet) 5 MG PO DAILY DIGOXIN (Digox) 0.0625 MG PO DAILY Levothyroxine Sodium (Levothyroxine 0.075MG) 0.075 MG PO DAILY Furosemide (Furosemide 40MG) 40 MG PO DAILY POTASSIUM CHL (Potassium Chloride) 10 MEQ PO DAILY Losartan Potassium (Losartan 100MG) 100 MG PO DAILY TAMSULOSIN HCL (Flomax 0.4MG) 0.4 MG PO QHS Allergies: Coded Allergies: Penicillins (I-RASH 03/30/16) chlordiazepoxide (STOPPED KIDNEYS 03/30/16) clidinium (STOPPPED KIDNEYS 03/30/16) darifenacin (From ENABLEX) (STOPPED KIDNEYS 03/30/16) iodine (ANXIETY/RASH 03/30/16) oxycodone (VOMITTING/HICCUPS 03/30/16) Family History: Family history: Postive for: CAD, cancer (father with colon cancer). Social History: Smoking Hx Tobacco: Yes Smoker: Former Smoker Type: Cigarettes Packs/day: N/A Are you exposed to second hand No Alcohol: Alcohol: No Hx of Drug Use: Drug Use? No Patient's support system is: good (lives with his son) Review of Systems: Constitutional Positive for: weak. ENT No: sore throat. Cardiovascular No: chest pain, edema, palpitations. Respiratory No: shortness of air, non-productive, productive cough (sputum). GI Positive for: nausea, vomitting. No: constipation, diarrhea. (male) No: frequency, hematuria. Neurological Positive for: dizziness, syncope. No: headache, seizure. Musculoskeletal No: joint pain (walks with a walker). Physical Exam: Vital signs: 1ST Vital Signs Result Date Time Pulse Ox 97 12/30 1356 B/P 161/98 12/30 1356 Temp 98.2 12/30 135 Pulse 67 12/30 1356 Resp 18 12/30 135 Exam: General appearance: alert, no acute distress, frail Eyes: anicteric ENT: mucous membranes moist, pharynx normal Neck: full range of motion, carotid bruit (present bilaterally), lymphadenopathy (absent), thyroid (normal) Cardiovascular: regular rate & rhythm, monitor showing SR with PAC's Respiratory: clear to auscultation (bilat anterior and posterior) ABD: non-distended, soft, no tenderness, no guarding, bowel sounds present Extremities: no peripheral edema, discoloration on lower extremities Skin: lesions (facial) Lab data: Labs: Laboratory Tests 12/30/16 1455: Urine Color YELLOW, Urine Appearance CLEAR, Urine pH 6.0, Ur Specific [place] 1.020, Urine Protein NEGATIVE, Urine Ketones TRACE H, Urine Blood NEGATIVE, Urine Nitrate NEGATIVE, Urine Bilirubin NEGATIVE, Urine Urobilinogen 0.2, Ur Leukocyte Esterase NEGATIVE, Urine RBC NONE, Urine WBC NONE, Ur Squamous Epith Cells 5-10, Urine Bacteria NONE, Urine Glucose 3+ H 12/30/16 1355: Magnesium 1.9 12/30/16 1355: Amylase 60, Lipase 165 12/30/16 1355: Sodium 137, Potassium 2.7 *L, Chloride 98, Carbon Dioxide 28, BUN 12, Creatinine 1.0, Estimated Creat Clear 76, Estimated GFR (MDRD) 72, Glucose 295 H, Calcium 8.7, Total Bilirubin 0.5, AST 12 L, ALT 13, Alkaline Phosphatase 101, Creatine Kinase 85, CK-MB (CK-2) Rel Index 2.9, CK and CKMB Interp 2.5, Troponin I < 0.02 , Total Protein 7.5, Albumin 3.8, Globulin 3.7 H, Albumin/Globulin Ratio 1.0 L , WBC 13.6 H, RBC 4.96, Hgb 12.8 L, Hct 40.3 L, MCV 81.2 L, RDW 14.6, Plt Count 392, MPV 6.9 L, Gran % 58.4, Gran # 7.9, Lymphocytes % 35.0, Monocytes % 4.6, Eosinophils % 1.3, Basophils % 0.7, Lymphocytes # 4.7 H, Monocytes # 0.6, Eosinophils # 0.2, Basophils # 0.1, PUBS MCHC 31.7 L, MCH 25.8 L Radiology results: Results: 12/30/16 CXR IMPRESSION: Enlarging left upper lobe nodule patient's for neoplasm either primary or metastatic. Chest CT may be of further value. 12/30/16 CT of the head IMPRESSION: 1. Atrophy, no acute intracranial findings. 2. Left mastoid effusion. 3. There is no evidence of intracranial hemorrhage, focal mass, or acute territorial infarction. A negative CT does not exclude an acute CVA. A follow-up head CT or MRI is recommended if neurological symptoms persist CT of chest 12/30/16 IMPRESSION: 1. 2.4 cm solitary pulmonary nodule in left upper lobe which is increased in size on radiograph consistent with neoplasm and may be related to primary bronchogenic neoplasm. 2. Mild bibasilar atelectasis. 3. Small hiatal hernia. 4. Coronary artery disease Diagnosis(es): 1. Lung mass 2. Hypokalemia 3. Syncope 4. Diabetes mellitus 5. Paroxysmal atrial fibrillation 6. ASCVD (arteriosclerotic cardiovascular disease) 7. GERD (gastroesophageal reflux disease) 8. Hypothyroid Plan: Patient has been admitted for further evaluation and treatment; will obtain ECHO and carotid US and continue with cardiac monitoring; will discuss abn Lung CT with patient and son (Parks CORONER FORENSIC TECHNICIANMyah) Date of admission: 12/30/16 Chief complaint: Syncope Diagnosis(es): 1. Syncope 2. Lung mass 3. Hypokalemia 4. Diabetes mellitus 5. Paroxysmal atrial fibrillation 6. ASCVD (arteriosclerotic cardiovascular disease) 7. GERD (gastroesophageal reflux disease) 8. Hypothyroid 9. History of malignant neoplasm of prostate 10. Hypertension Plan: Pt seen and examined. He does not have clear recollection of the events of today. Affect is somewhat labile. The lung nodule was first noted on CXR when he was out of town and dislocated his hip in September. He was admitted in [place] and routine CXR showed a 2 cm nodule in the RUB[place]. He was seen in the office in October and repeat CXR was ordered but apparently never done. He denies chest pain, productive cough or increased SOA. He appears to have lost weight and admits his appetite has not been good. He has not been checking his blood sugar at home. Will start IVF and K+ replacement tonight. Schedule carotid US and Echo to w/u his syncope. Will discuss further w/u of his lung nodule with son. He has not been inclined to pursue aggressive treatment on previous discussions. (Katie BURTTawny) at [phone] at [phone]
[2016-12-30 17:00] VITALS: BP 154/76
[2016-12-30 17:07] VITALS: BP 154/76
[2016-12-30 19:45] VITALS: BP 139/58
[2016-12-30 20:15] VITALS: BP 139/58
[2016-12-31] VITALS (22 sets, daily range): BP systolic 105–147; BP diastolic 48–104
[2016-12-31 07:29] LABS: LYMPH # 1.8 K/mm3 (0.7-4.5); LYMPH % 23.5 % (10-50)
--- NOTE | 2016-12-31 07:33 | PHARMACY CLINIC NOTE ---
Patient Demographics Patient Demographics Admission date: 12/30/16 Date: 12/31/16 Time: 0732 Allergies Coded Allergies: Penicillins (I-RASH 03/30/16) chlordiazepoxide (STOPPED KIDNEYS 03/30/16) clidinium (STOPPPED KIDNEYS 03/30/16) darifenacin (From ENABLEX) (STOPPED KIDNEYS 03/30/16) iodine (ANXIETY/RASH 03/30/16) oxycodone (VOMITTING/HICCUPS 03/30/16) HEIGHT- FT: 5 IN: 11.00 K.047 VTE General Information Labs: Laboratory Tests 12/30 1355 Hematology Hgb (14.1 - 18.0 g/dL) 12.8 L Hct (42.0 - 52.0 %) 40.3 L Plt Count (142 - 424 K/mm3) 392 Disclaimer The following section includes nursing documentation that has been pulled in for pharmacy review. Patient's VTE score: 1 Patient's VTE Risk: VERY LOW RISK Clinical trial participant? No VTE prophylaxis NQF [id number] VTE prophylaxis ordered? Yes Type of prophylaxis/treatment: VALERIA at 0732
--- NOTE | 2016-12-31 07:50 | CARDIOVASCULAR REPORT ---
"Cerebrovascular Exam Indications: 780.2 Syncope and collapse. IMPRESSIONS 1. The bilateral vertebral arteries are patent with normal antegrade flow. 2. Study suggests less than 20% stenosis involving the right internal carotid artery and the left internal carotid artery. No change from the study of 03-Mar-2012. History: Risk factors: Current tobacco use. Hypertension. Hyperlipidemia. Carotid duplex study. Complete study and Doppler flow study including spectral analysis, color and henderson scale imaging. Location: Bedside. Patient status: Inpatient. Tables: Arterial flow: + +--------+--------+ |Location |V sys |V ed | + +--------+--------+ |Right CCA - proximal|67.6cm/s|14.9cm/s| + +--------+--------+ |Right CCA - distal |71.5cm/s|16.5cm/s| + +--------+--------+ |Right ECA |154cm/s |--------| + +--------+--------+ |Right ICA - proximal|95.1cm/s|22cm/s | + +--------+--------+ |Right ICA - mid |110cm/s |32.2cm/s| + +--------+--------+ |Right ICA - distal |96.6cm/s|33.8cm/s| + +--------+--------+ |Right vertebral |48.7cm/s|--------| + +--------+--------+ |Left CCA - proximal |88cm/s |14.9cm/s| + +--------+--------+ |Left CCA - distal |86.4cm/s|18.1cm/s| + +--------+--------+ |Left ECA |196cm/s |--------| + +--------+--------+ |Left ICA - proximal |67.6cm/s|16.5cm/s| + +--------+--------+ |Left ICA - mid |97.4cm/s|19.6cm/s| + +--------+--------+ |Left ICA - distal |73.9cm/s|22cm/s | + +--------+--------+ |Left vertebral |35.4cm/s|--------| + +--------+--------+ Velocity ratios: + + + + + + | |Right, V sys|Right, V ed|Left, V sys|Left, V ed| + + + + + + |Max ICA/dist CCA|1.54 |2.05 |1.13 |1.22 | + + + + + + (Report amended ) Electronically signed by: Dewayne Jones [id number]"
[2016-12-31 07:54] LABS: HEMOGLOBIN 11.2 g/dL (14.1-18.0)
--- NOTE | 2016-12-31 08:28 | ACUTE CARE PROGRESS NOTE (QUA) ---
Progress Notes Subjective Date 12/31/16 Time 0819 Note Feeling OK; denies CP and SOB; has been sleeping; eating without problems; voiding QS; has not been OOB per nurses: sinus albert in the 30's; low K+ Objective Findings Laboratory Tests 12/31/16 0715: Sodium 141, Potassium 2.6 *L, Chloride 103, Carbon Dioxide 33 H, BUN 11, Creatinine 0.9, Estimated Creat Clear 72, Estimated GFR (MDRD) 81, Glucose 181 H, Calcium 8.7, Total Bilirubin 0.7, AST 12 L, ALT 13, Alkaline Phosphatase 81, B-Natriuretic Peptide 207 H, Total Protein 6.3 L, Albumin 3.1 L, Globulin 3.2 , Albumin/Globulin Ratio 1.0 L, WBC 7.8, RBC 4.36 L, Hgb 11.2 L, Hct 34.9 L, MCV 80.1 L, RDW 14.5, Plt Count 298, MPV 7.1 L, Gran % 66.0, Gran # 5.1, Lymphocytes % 23.5, Monocytes % 6.4, Eosinophils % 3.4, Basophils % 0.7, Lymphocytes # 1.8, Monocytes # 0.5, Eosinophils # 0.3, Basophils # 0.1, PUBS MCHC 32.0, MCH 25.7 L 12/30/16 2300: Creatine Kinase 75, CK-MB (CK-2) Rel Index 4.0, CK and CKMB Interp 3.0, Troponin I 0.14 H 12/30/16 1655: Creatine Kinase 81, CK-MB (CK-2) Rel Index 3.1, CK and CKMB Interp 2.5, Troponin I 0.09 H 12/30/16 1455: Urine Color YELLOW, Urine Appearance CLEAR, Urine pH 6.0, Ur Specific [place] 1.020, Urine Protein NEGATIVE, Urine Ketones TRACE H, Urine Blood NEGATIVE, Urine Nitrate NEGATIVE, Urine Bilirubin NEGATIVE, Urine Urobilinogen 0.2, Ur Leukocyte Esterase NEGATIVE, Urine RBC NONE, Urine WBC NONE, Ur Squamous Epith Cells 5-10, Urine Bacteria NONE, Urine Glucose 3+ H 12/30/16 1355: Magnesium 1.9 12/30/16 1355: Amylase 60, Lipase 165 12/30/16 1355: Sodium 137, Potassium 2.7 *L, Chloride 98, Carbon Dioxide 28, BUN 12, Creatinine 1.0, Estimated Creat Clear 76, Estimated GFR (MDRD) 72, Glucose 295 H, Calcium 8.7, Total Bilirubin 0.5, AST 12 L, ALT 13, Alkaline Phosphatase 101, Creatine Kinase 85, CK-MB (CK-2) Rel Index 2.9, CK and CKMB Interp 2.5, Troponin I < 0.02 , Total Protein 7.5, Albumin 3.8, Globulin 3.7 H, Albumin/Globulin Ratio 1.0 L , WBC 13.6 H, RBC 4.96, Hgb 12.8 L, Hct 40.3 L, MCV 81.2 L, RDW 14.6, Plt Count 392, MPV 6.9 L, Gran % 58.4, Gran # 7.9, Lymphocytes % 35.0, Monocytes % 4.6, Eosinophils % 1.3, Basophils % 0.7, Lymphocytes # 4.7 H, Monocytes # 0.6, Eosinophils # 0.2, Basophils # 0.1, PUBS MCHC 31.7 L, MCH 25.8 L, Digoxin 0.56 L Vital Signs Date Time Temp Pulse Resp B/P Pulse O2 O2 Flow FiO2 Ox Delivery Rate 12/31 0415 98.0 42 18 126/49 97 ROOM AIR 12/31 0007 98.1 49 18 119/58 96 ROOM AIR 12/31 2051 96 ROOM AIR 12/30 2014 98.1 55 20 139/58 96 ROOM AIR 12/30 1945 98.1 55 20 139/58 96 12/30 1707 60 12/30 1707 98.3 60 20 154/76 12/30 1707 98 ROOM AIR 12/30 1700 2 12/30 1700 2 12/30 1700 98 ROOM AIR 2 12/30 1700 98 ROOM AIR 12/30 1700 98.3 60 20 154/76 97 ROOM AIR 12/30 1636 98.2 69 18 135/72 98 12/30 1556 66 18 140/63 97 12/30 1356 98.2 67 18 161/98 97 Current Medications Amlodipine Besylate 5 MG DAILY PO Digoxin 0.0625 MG DAILY PO Irbesartan 150 MG DAILY PO Levothyroxine Sodium 0.075 MG DAILY PO Ibuprofen 0 .STK-MED ONE PO (DC) Ibuprofen 800 MG BID PO Mirtazapine 15 MG QHS PO Pantoprazole Sodium 40 MG QHS PO Tamsulosin HCl 0.4 MG QHS PO Potassium Chloride/Sodium Chloride 1,000 ML .Q20H IV Potassium Chloride 0 .STK-MED ONE PO (DC) Potassium Chloride 40 MEQ ONCE ONE PO (DC) Ondansetron HCl 4 MG ONCE ONE IV (DC) Ondansetron HCl 0 .STK-MED ONE .ROUTE (DC) Aspirin 324 MG ONCE ONE PO (DC) Aspirin 0 .STK-MED ONE .ROUTE (DC) Sodium Chloride 10 ML PRN PRN IV 12/30 1500 12/30 2300 12/31 0700 Intake Total Output Total 650 350 Balance -650 -350 Output, Urine 650 350 Patient 200 lb 172 lb Weight Last VS-Temp:98.0 B/P:126/49 Pulse:42 Resp:18 SaO2:97 ROOM AIR Last weight lbs:172 oz:1 K.047 Method:Bed Scales CT of ABD Pelvis 12/31/16 IMPRESSION: 1. 4 isodense small liver lesions. These are too small to categorize and could very well represent small cysts. Cannot exclude the possibility of small metastasis. 3. Hiatal hernia. 4. Other nonacute findings as described above 12/31/16 carotid US IMPRESSIONS 1. The bilateral vertebral arteries are patent with normal antegrade flow. 2. Study suggests less than 20% stenosis involving the right internal carotid artery and the left internal carotid artery. No change from the study of 03-Mar-2012. Exam General appearance: alert, no acute distress, awakened for exam Cardiovascular: regular rate & rhythm, sinus albert on monitor Respiratory: clear to auscultation (bilat anterior and posterior) ABD: non-distended, soft, no tenderness, bowel sounds present Extremities: no peripheral edema Neuro: alert, oriented Assessment/Plan Problem List 1. Syncope 2. Lung mass 3. Hypokalemia 4. Diabetes mellitus 5. Paroxysmal atrial fibrillation 6. ASCVD (arteriosclerotic cardiovascular disease) 7. GERD (gastroesophageal reflux disease) 8. Hypothyroid 9. History of malignant neoplasm of prostate 10. Hypertension 11. Sinus bradycardia Patient condition Stable Plan: continue current care, cardiology consult This inpt stay is expected to cross 2 MNs from start of care Yes (Myah Parks APRN) Subjective Date 12/31/16 Time 0851 Assessment/Plan Problem List 1. Sinus bradycardia 2. Elevated troponin I level 3. Syncope 4. Lung mass 5. Hypokalemia 6. Diabetes mellitus 7. Paroxysmal atrial fibrillation 8. ASCVD (arteriosclerotic cardiovascular disease) 9. GERD (gastroesophageal reflux disease) 10. Hypothyroid 11. History of malignant neoplasm of prostate 12. Hypertension Plan: Pt seen and examined this AM with son at bedside. Agreeable with cardiology consult regarding bradycardia and elevated troponin. Discussed findings of increasing size of lung mass on CT. Patient and family not sure at this time about pursueing treatment. Needs to stabilize cardiac situation first. (Tawny Wilson MD) at [id number] at [phone]
--- NOTE | 2016-12-31 10:26 | CONSULT NOTE ---
Standard Demographics Patient Demo Date of Consultation: 12/31/16 Referring Provider: Jairo Wilson MD Reason for Consultation: Elevated troponins, Syncope PRIMARY DIAGNOSIS: SYNCOPE Problem list Problem list: 1. Syncope, 12/2016, etiology unknown A. History of A. fib B. Sinus bradycardia 2. Abnormal CT of lungs with pulmonary nodule suspicious for Lung CA 3. Ex smoker A. COPD 4. DM, on PO meds 5. HTN 6. Hyperlipidemia 7. Hypothyroidism,on replacement History of present illness: History of present illness: Mr Rodriguez is an 81 year old male with a history of COPD, HLP, T2DM, DJD, Prostate CA, GERD Atrial fib, and Hypothyroidism who had a syncopal episode when in his car in the [facility] parking lot. His son was with him at the time and assisted him to the ER via wheelchair. He was felt to be having a stroke and had an immediate CT of the head which showed nothing acute. Patient did complain of CP on the way to CT but denies now. He also denies nausea and vomiting although he vomited on the way to CT. His nurse noted multiple PVC's. With evaluation he was found to have a lung nodule on chest CT. He was admitted for further evaluation and treatment. The above per SYLVESTER Hester, for Dr. Wilson. The patient's troponins have returned elevated and Cardiology consulted for further evaluation. Severe Coronary artery calcifications noted on CT of chest. EKG's show sinus bradycardia and telemetry shows rates into the 30's at times. Past Medical History: General: Hypertension Yes CVA No Seizures No TB No COPD Yes Asthma No Diabetes Yes Insulin Dependent No Insulin Pump No Angina Yes [place] No Hyperlipidemia Yes Urinary Yes Cancer Yes Rheumatic H.D. No Ulcers No MRSA No GB Disease Yes Other PROSTATE/LYMPH NODES Additional hx DJD AT FIB Past Surgical HX: Previous Surgery?Y RT TOTAL HIP REPLACEMENT Prostate Appendix ARTIF URINARY SPHINCTER L. 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 VARICOSE VEINS X3 BACK SX X3, METAL JOVANI SPRINTHER PUMP UROLOGY GALLBLADDER L HIP REDUCTION Allergies Coded Allergies: Penicillins (I-RASH 03/30/16) chlordiazepoxide (STOPPED KIDNEYS 03/30/16) clidinium (STOPPPED KIDNEYS 03/30/16) darifenacin (From ENABLEX) (STOPPED KIDNEYS 03/30/16) iodine (ANXIETY/RASH 03/30/16) oxycodone (VOMITTING/HICCUPS 03/30/16) Home medications: Active Scripts Omeprazole (Omeprazole 40MG) 40 MG PO DAILY #30 ECC Ref 5 Prov: 01/08/16 Reported Medications Aspirin (Aspirin EC) 81 MG PO DAILY Amlodipine Besylate (Amlodipine) 5 MG PO DAILY Ibuprofen (MOTRIN 800MG (generic) Tablet) 800 MG PO TID CHOLESTYRAMINE/ASPARTAME (Cholestyramine Light Packet) 4 GM PO BID Mirtazapine (Remeron) 15 MG PO QHS Risperidone (Risperdal 0.25MG Tab) 0.25 MG PO BID Metolazone (Metolazone 5MG Tablet) 5 MG PO DAILY DIGOXIN (Digox) 0.0625 MG PO DAILY Levothyroxine Sodium (Levothyroxine 0.075MG) 0.075 MG PO DAILY Furosemide (Furosemide 40MG) 40 MG PO DAILY POTASSIUM CHL (Potassium Chloride) 10 MEQ PO DAILY Losartan Potassium (Losartan 100MG) 100 MG PO DAILY TAMSULOSIN HCL (Flomax 0.4MG) 0.4 MG PO QHS Immunization HX DT/Tetanus 1-4 Years Flu [id number] Pneumonia RECEIVED IN PAST TB Test in last year No Family history Family HX Family Hx Insignificant No Diabetes Yes CAD Yes Hypertension No Hyperlipidemia No Cancer Yes TB No Social Hx: Smoking HX Tobacco Yes Type Cigarettes Packs/day N/A Are you/the child exposed to second-hand smoke: No Alcohol Alcohol: No Hx of Drug Use Drug Use? No Review of systems: Constitutional see HPI. Respiratory No: no symptoms reported. Cardiovascular No no symptoms reported Gastrointestinal/Abdominal No no symptoms reported Genitourinary No: no symptoms reported. Musculoskeletal No: no symptoms reported. Neurological Yes: see HPI. Exam: Admission Vital Signs: 1ST Vital Signs Result Date Time Pulse Ox 97 12/30 1356 B/P 161/98 12/30 1356 Temp 98.2 12/30 1356 Pulse 67 12/30 1356 Resp 18 12/30 1356 O2 Delivery ROOM AIR 12/30 1700 O2 Flow Rate 2 12/30 1700 Last Vital Signs: Vital Signs Result Date Time Pulse Ox 97 11/14 0823 B/P 144/54 12/31 822 O2 Delivery ROOM AIR 12/31 822 Temp 98.3 12/31 822 Pulse 54 12/31 822 Resp 18 12/31 822 O2 Flow Rate 2 12/30 1700 Exam General appearance: alert, awake, no acute distress Neck: no carotid bruit, no JVD Cardiovascular: regular rate & rhythm, bradycardia Respiratory: clear to auscultation, good air movement ABD: soft, no tenderness Extremities: moves all, no peripheral edema Neuro: alert, intact, oriented Laboratory data: Laboratory Tests 12/31/16 0715: Sodium 141, Potassium 2.6 *L, Chloride 103, Carbon Dioxide 33 H, BUN 11, Creatinine 0.9, Estimated Creat Clear 72, Estimated GFR (MDRD) 81, Glucose 181 H, Calcium 8.7, Total Bilirubin 0.7, AST 12 L, ALT 13, Alkaline Phosphatase 81, B-Natriuretic Peptide 207 H, Total Protein 6.3 L, Albumin 3.1 L, Globulin 3.2 , Albumin/Globulin Ratio 1.0 L, WBC 7.8, RBC 4.36 L, Hgb 11.2 L, Hct 34.9 L, MCV 80.1 L, RDW 14.5, Plt Count 298, MPV 7.1 L, Gran % 66.0, Gran # 5.1, Lymphocytes % 23.5, Monocytes % 6.4, Eosinophils % 3.4, Basophils % 0.7, Lymphocytes # 1.8, Monocytes # 0.5, Eosinophils # 0.3, Basophils # 0.1, PUBS MCHC 32.0, MCH 25.7 L 12/30/16 2300: Creatine Kinase 75, CK-MB (CK-2) Rel Index 4.0, CK and CKMB Interp 3.0, Troponin I 0.14 H 12/30/16 1655: Creatine Kinase 81, CK-MB (CK-2) Rel Index 3.1, CK and CKMB Interp 2.5, Troponin I 0.09 H 12/30/16 1455: Urine Color YELLOW, Urine Appearance CLEAR, Urine pH 6.0, Ur Specific Ch[place] 1.020, Urine Protein NEGATIVE, Urine Ketones TRACE H, Urine Blood NEGATIVE, Urine Nitrate NEGATIVE, Urine Bilirubin NEGATIVE, Urine Urobilinogen 0.2, Ur Leukocyte Esterase NEGATIVE, Urine RBC NONE, Urine WBC NONE, Ur Squamous Epith Cells 5-10, Urine Bacteria NONE, Urine Glucose 3+ H 12/30/16 1355: Magnesium 1.9 12/30/16 1355: Amylase 60, Lipase 165 12/30/16 1355: Sodium 137, Potassium 2.7 *L, Chloride 98, Carbon Dioxide 28, BUN 12, Creatinine 1.0, Estimated Creat Clear 76, Estimated GFR (MDRD) 72, Glucose 295 H, Calcium 8.7, Total Bilirubin 0.5, AST 12 L, ALT 13, Alkaline Phosphatase 101, Creatine Kinase 85, CK-MB (CK-2) Rel Index 2.9, CK and CKMB Interp 2.5, Troponin I < 0.02 , Total Protein 7.5, Albumin 3.8, Globulin 3.7 H, Albumin/Globulin Ratio 1.0 L , WBC 13.6 H, RBC 4.96, Hgb 12.8 L, Hct 40.3 L, MCV 81.2 L, RDW 14.6, Plt Count 392, MPV 6.9 L, Gran % 58.4, Gran # 7.9, Lymphocytes % 35.0, Monocytes % 4.6, Eosinophils % 1.3, Basophils % 0.7, Lymphocytes # 4.7 H, Monocytes # 0.6, Eosinophils # 0.2, Basophils # 0.1, PUBS MCHC 31.7 L, MCH 25.8 L, Digoxin 0.56 L Plan Assessment: 1. Elevated troponins in setting of syncope with severe Coronary artery calcifications on CT of chest. Concern for NSTEMI. 2. Probable new lung cancer 3. Syncope 4. Bradycardia with history of A. fib, likely sick sinus syndrome. Will hold digoxin for now. 5. Hypokalemia,on replacement 6. Hypothyroidism, on replacement. 7. Mild anemia 8. Mild elevation of BNP without CXR evidence of CHF. Plan: 1. Discussed recommendation for cardiac cath with patient. No family present. After discussing with family, patient has decided to proceed with cardiac cath. Will hold digoxin due to bradycardia. 2. Pt may need permanent pacemaker if no CAD to explain syncope. at 1111
--- NOTE | 2016-12-31 13:34 | RADIOLOGY REPORT PS360 ---
CARDIAC CATHETERIZATION DATE OF CATHETERIZATION:12/31/2016 12:53 PM PROCEDURES: 1. Left heart catheterization 2. Left ventriculogram 3. Selective coronary angiogram 4. Bare-metal stent deployment to the proximal LAD 5. Bare-metal stent deployment to the distal dominant right coronary artery INDICATION FOR TEST: 1. Acute non-ST elevation myocardial infarction 2. Cardiac syncope 3. Coronary artery disease 4. Preoperative evaluation prior to attending cardiothoracic surgery for presumed lung cancer Informed consent was obtained prior to the procedure. COMPLICATIONS: None ESTIMATED BLOOD LOSS: Less than 10 ml. TECHNIQUE: One percent lidocaine used to anesthetize the right anterior aspect of the wrist. The right radial artery was accessed via the Seldinger technique. A 6 Burkinan sheath was placed in the right radial artery. 2.5 mg of verapamil, 800 mcg of nitroglycerin and 5000 U Heparin were given through the arterial sheath. The trap catheter was also used to perform left heart catheterization left ventriculogram and selective coronary angiogram. At the end of the diagnostic procedure an additional 3000 units of heparin was administered intravenously along with Brilinta 180 mg orally. An Beyond the Box left guide catheter was used intubate the left main artery and a BMW wire was placed across the proximal lesion and into the distal vessel. A 3 mm x 22 mm bare-metal stent integrity was deployed at 22 allie reducing the stenosis. A 3.5 x 8 mm noncompliant balloon was placed proximally within the stent and deployed at 22 allie. UMA-3 flow was present before and after the procedure with excellent angiographic results. At this point the guide catheter was placed into the right coronary artery and the same BMW wire was placed distally. A 2.5 x 8 mm bare-metal stent was placed distally at 22 allie reducing the 90% stenosis to 0%. UMA III flow was present before and after the procedure. The ACT at the beginning of the case was 335 seconds. The closing ACT was 282 seconds therefore an additional 2000 units of heparin was administered intravenously ANGIOGRAPHIC RESULTS: 1. The left main artery normal 2. The left anterior descending artery has a proximal 90% stenosis followed by an additional 50% stenosis. 30% mid LAD lesions are present. 3. The circumflex artery is nondominant and has diffuse 20 and 30% atheromatous plaque 4. The right coronary artery is a dominant vessel and has proximal 40% followed by additional 40% followed by distal concentric 80-90% stenosis immediately proximal to the PDA and posterior lateral ventricular branch. 5. The RICHARDS ventriculogram reveals normal 65% 6. The left ventricular end-diastolic pressure 10 mmHg IMPRESSION: 1. Critical 2 vessel coronary artery disease as described above 2. Successful stenting the proximal LAD critical disease reduced to 0% with 1 bare-metal stent 3. Successful stenting of the distal dominant right coronary artery severe to critical disease reduced to 0% with 1 bare-metal stent 4. Normal ejection fraction 5. Normal left ventricular end-diastolic pressure PLAN: 1. Brilinta and aspirin for 30 days 2. Patient will be in acceptable risk from a cardiac standpoint to proceed with cardiothoracic surgery and/or lung resection if needed. 3. Cardiac rehabilitation 4. LDL less than 55 5. Risk factor modification
--- NOTE | 2016-12-31 19:50 | RADIOLOGY REPORT PS360 ---
PROCEDURE: 2-D M-mode and color Doppler study INDICATIONS FOR THE TEST: Chest pain COPD+ Heart Murmur Tobacco Smoking+ Palpitations Fatigue Syncope Edema Hypertension+Diabetes Mellitus Rheumatic Fever SOB DALY Obesity Hyperlipidemia+ Family History HD Additional History PATIENT INFORMATION HEIGHT: 73 WEIGHT:172 GENDER: Male B/P:161/98 2-D/M-MODE INTERPRETATION: 2-D MEASUREMENTS OBSERVED VALUES IN CMS Right Ventricular Dimension (RVDd) 2.6 Interventricular Septum (Thickness)(IVsd) 1.1 Left Ventricular Internal Dimensions(LVIDd) 5.1 Left Ventricular Posterior Wall (Thickness)(LVPWd) 1.6 Aortic Root 3.6 Aortic Cusp Separation 2.1 Left Atrial Dimensions (LAD) 5.1 2D 1. Left atrium is moderately enlarged, left ventricle is normal size, there is mild concentric left ventricular hypertrophy present, visually estimated ejection fraction of 55% with no obvious regional wall motion abnormality. 2. The right atrium and right ventricle are mildly enlarged with normal contractility. 3. The aortic valve is minimally thickened and fibrosed, leaflet continue to display mobility. 4. The mitral and tricuspid valve leaflets are minimally thickened. 5. The pulmonic valve is poorly visualized. 6. No significant pericardial effusion noted. DOPPLER INTERROGATION: Doppler interrogation of the aortic, mitral and tricuspid valvular presence of trace aortic, mild mitral and tricuspid regurgitation, tricuspid regurgitant jet velocity is insufficient for calculation of the right ventricular systolic pressure, grade 1 diastolic dysfunction seen with tissue Doppler evidence of raised left atrial pressure. CONCLUSION: 1. Moderately enlarged left atrium, normal left ventricular size, mild concentric left ventricular hypertrophy, visually estimated ejection fraction 55% with no obvious regional wall motion abnormality, grade 1 diastolic dysfunction seen with tissue Doppler evidence of raised left atrial pressure. 2. Mildly enlarged right ventricle with normal contractility. 3. Trace aortic, mild mitral and tricuspid regurgitation. 4. No significant pericardial effusion noted.
[2017-01-01] VITALS (13 sets, daily range): BP systolic 128–179; BP diastolic 49–78
--- NOTE | 2017-01-01 08:18 | ACUTE CARE PROGRESS NOTE (QUA) ---
Progress Notes Subjective Date 01/01/17 Time 0812 Note He rested fairly well. Noted with bradycardia while sleeping. He is somewhat confused this AM but easily reoriented. Appetite is improving Objective Findings Laboratory Tests 01/01/17 0550: Sodium 137, Potassium 3.1 L, Chloride 101, Carbon Dioxide 26, BUN 19 H, Creatinine 0.9, Estimated Creat Clear 74, Estimated GFR (MDRD) 81, Glucose 323 H, Calcium 9.0 Last VS-Temp:97.6 B/P:161/66 Pulse:55 Resp:18 SaO2:100 ROOM AIR Last weight lbs:175 oz:3 K.464 Method:Bed Scales Exam General appearance: alert, no acute distress ENT: mucous membranes moist Cardiovascular: regular rate & rhythm, Gr 1/6 murmur Respiratory: clear to auscultation ABD: normal bowel sounds, soft, no tenderness Extremities: no peripheral edema, TEDs Assessment/Plan Problem List 1. Sinus bradycardia 2. Elevated troponin I level 3. Syncope 4. Lung mass 5. Hypokalemia 6. Diabetes mellitus 7. Paroxysmal atrial fibrillation 8. ASCVD (arteriosclerotic cardiovascular disease) 9. GERD (gastroesophageal reflux disease) 10. Hypothyroid 11. History of malignant neoplasm of prostate 12. Hypertension 13. Dementia Plan: PT eval today. Monitor bradycardia. May still need pacemaker. This inpt stay is expected to cross 2 MNs from start of care Yes at 0818
--- NOTE | 2017-01-01 12:40 | ACUTE CARE PROGRESS NOTE (QUA) ---
Progress Notes Subjective Date 01/01/17 Time 0900 Note 81 yo WM in bed in NAD. Still unsteady on feet but feeling better after coronary stents placed yesterday. No bleeding noted. Telemetry shows sinus albert in the high 40's and low 50's. Objective Findings Last VS-Temp:97.8 B/P:131/59 Pulse:62 Resp:18 SaO2:98 ROOM AIR Last weight lbs:175 oz:3 K.464 Method:Bed Scales Exam General appearance: alert, awake, no acute distress Cardiovascular: regular rate & rhythm, bradycardia Respiratory: clear to auscultation Reviewed: medications, vital signs, lab results Assessment/Plan Problem List 1. Sinus bradycardia 2. Elevated troponin I level 3. Syncope Qualifiers: Syncope type: unspecified Qualified Code: R55 - Syncope and collapse 4. Lung mass 5. Hypokalemia 6. Diabetes mellitus 7. Paroxysmal atrial fibrillation 8. ASCVD (arteriosclerotic cardiovascular disease) 9. GERD (gastroesophageal reflux disease) 10. Hypothyroid 11. History of malignant neoplasm of prostate 12. Hypertension 13. Dementia Patient condition Stable Plan: Continue current meds. DAPT for one month due to bare metal stents used. Continue to monitor on telemetry for high grade AV block or need for pacemaker . PT to work with patient today and possibly home tomorrow. This inpt stay is expected to cross 2 MNs from start of care Yes at [id number]
[2017-01-02] VITALS (12 sets, daily range): BP systolic 120–148; BP diastolic 38–78
--- NOTE | 2017-01-02 07:48 | ACUTE CARE PROGRESS NOTE (QUA) ---
Progress Notes Subjective Date 01/02/17 Time 0742 Note 81 yo WM at bedside eating breakfast in NAD. Denies any LOC or syncope with ambulating. Telemetry shows HR in the high 30's and low 40's at rest but with conversation it increases to the 50/60's. Pt is emotional when discussing possibility of pacemaker and further workup of lung cancer due to the fact that he wants to go home because his son is coming in from [place] today. Denies any chest pains, nosebleeds or GI/ bleeding. Objective Findings Last VS-Temp:98.5 B/P:142/60 Pulse:56 Resp:17 SaO2:96 ROOM AIR Last weight lbs:176 oz:4 K.946 Method:Bed Scales Exam General appearance: alert, awake, no acute distress Cardiovascular: regular rate & rhythm, bradycardia Respiratory: clear to auscultation Reviewed: medications, vital signs, lab results Assessment/Plan Problem List 1. Sinus bradycardia Assessment/Plan: No further syncope since coronary stenting. Good heart rate response to activity. 2. Elevated troponin I level 3. Syncope Qualifiers: Syncope type: unspecified Qualified Code: R55 - Syncope and collapse 4. Lung mass 5. Hypokalemia 6. Diabetes mellitus 7. Paroxysmal atrial fibrillation 8. ASCVD (arteriosclerotic cardiovascular disease) 9. GERD (gastroesophageal reflux disease) 10. Hypothyroid 11. History of malignant neoplasm of prostate 12. Hypertension 13. Dementia Patient condition Stable Plan: At this time, no plans for pacemaker. Continue DAPT for coronary stenting. Further workup of presumed lung cancer per Dr. Wilson. If discharged today, then follow up in one week in our clinic. This inpt stay is expected to cross 2 MNs from start of care Yes at 0734
--- NOTE | 2017-01-02 08:16 | ACUTE CARE PROGRESS NOTE (QUA) ---
Progress Notes Subjective Date 01/02/17 Time 0814 Note Pt states he feels good this am. He denies any pain, slept well, ate well, and wants to go home. Objective Findings Last VS-Temp:98.5 B/P:142/60 Pulse:56 Resp:17 SaO2:96 ROOM AIR Last weight lbs:176 oz:4 K.946 Method:Bed Scales Exam General appearance: alert, awake, no acute distress Cardiovascular: regular rate & rhythm Respiratory: clear to auscultation ABD: non-distended, normal bowel sounds, no rebound, soft, no tenderness, no guarding Extremities: no peripheral edema Assessment/Plan Problem List 1. Sinus bradycardia 2. Elevated troponin I level 3. Syncope 4. Lung mass 5. Hypokalemia 6. Diabetes mellitus 7. Paroxysmal atrial fibrillation 8. ASCVD (arteriosclerotic cardiovascular disease) 9. GERD (gastroesophageal reflux disease) 10. Hypothyroid 11. History of malignant neoplasm of prostate 12. Hypertension 13. Dementia Plan: Possible discharge today to either home or a snf. Will discuss with Dr. Wilson. This inpt stay is expected to cross 2 MNs from start of care Yes (Anabell Granda) Subjective Date 01/02/17 Assessment/Plan Problem List 1. Sinus bradycardia 2. Elevated troponin I level 3. Syncope 4. Lung mass 5. Hypokalemia 6. Diabetes mellitus 7. Paroxysmal atrial fibrillation 8. ASCVD (arteriosclerotic cardiovascular disease) 9. GERD (gastroesophageal reflux disease) 10. Hypothyroid 11. History of malignant neoplasm of prostate 12. Hypertension 13. Dementia Plan: PT seen and examined. PT eval noted. Cardiology consult appreciated. Care management arranging skilled care placement for short term rehab. (Tawny Wilson MD) at 0816 at 0824
[2017-01-03 00:12] VITALS: BP 149/56
[2017-01-03 04:58] VITALS: BP 136/64
[2017-01-03 08:00] VITALS: BP 133/64
[2017-01-03 08:20] VITALS: BP 133/64
--- NOTE | 2017-01-03 08:22 | ACUTE CARE PROGRESS NOTE (QUA) ---
Progress Notes Subjective Date 01/03/17 Time 0820 Note Pt states he began having epigastric and lower chest pain again this am with some SOA. He denies any other pain. He slept well and ate well this am. Objective Findings Last VS-Temp:98.1 B/P:133/64 Pulse:56 Resp:18 SaO2:99 ROOM AIR Last weight lbs:176 oz:4 K.946 Method:Bed Scales Exam General appearance: alert, awake, no acute distress Cardiovascular: regular rate & rhythm Respiratory: clear to auscultation ABD: non-distended, normal bowel sounds, no rebound, soft, no guarding, ttp in the epigastric area Extremities: no peripheral edema Assessment/Plan Problem List 1. Sinus bradycardia 2. Elevated troponin I level 3. Syncope 4. Lung mass 5. Hypokalemia 6. Diabetes mellitus 7. Paroxysmal atrial fibrillation 8. ASCVD (arteriosclerotic cardiovascular disease) 9. GERD (gastroesophageal reflux disease) 10. Hypothyroid 11. History of malignant neoplasm of prostate 12. Hypertension 13. Dementia 14. Epigastric pain Plan: Will get a CMP, amylase, and lipase this am d/t epigastric pain. Patient is already on a PPI. Care Management is working on placement. This inpt stay is expected to cross 2 MNs from start of care Yes (Anabell Granda) Assessment/Plan Problem List 1. Sinus bradycardia 2. Elevated troponin I level 3. Syncope 4. Lung mass 5. Hypokalemia 6. Diabetes mellitus 7. Paroxysmal atrial fibrillation 8. ASCVD (arteriosclerotic cardiovascular disease) 9. GERD (gastroesophageal reflux disease) 10. Hypothyroid 11. History of malignant neoplasm of prostate 12. Hypertension 13. Dementia 14. Epigastric pain Plan: Pt seen and examined this AM. His chest pain came on after eating breakfast - likely GI related. He has hx of GERD. Concur with plan as outlined above. Still awaiting insurance approval for skilled care rehab. (Tawny Wilson MD) at 0822 at 1040
--- NOTE | 2017-01-03 09:08 | ACUTE CARE PROGRESS NOTE (QUA) ---
Progress Notes Subjective Date 01/03/17 Time 0730 Note 81 yo WM at bedside eating breakfast without complaint. States he ambulated some yesterday without lightheadedness or dizziness. Seems ok with going to rehab facility. Telemetry continues to show resting bradycardia with increase in heart rate with activity. No pauses noted. Objective Findings Last VS-Temp:98.3 B/P:133/64 Pulse:61 Resp:18 SaO2:99 ROOM AIR Last weight lbs:176 oz:4 K.946 Method:Bed Scales Exam General appearance: alert, awake, no acute distress Cardiovascular: regular rate & rhythm Respiratory: clear to auscultation Reviewed: medications, vital signs, lab results Assessment/Plan Problem List 1. Sinus bradycardia 2. Elevated troponin I level 3. Syncope Assessment/Plan: No further episodes of syncope since prior to admission and coronary stenting. Continue to monitor on telemetry but at this point no indication for pacemaker. Qualifiers: Syncope type: unspecified Qualified Code: R55 - Syncope and collapse 4. Lung mass 5. Hypokalemia 6. Diabetes mellitus 7. Paroxysmal atrial fibrillation 8. ASCVD (arteriosclerotic cardiovascular disease) Assessment/Plan: s/p KATHRYN. On dual anti-platelet therapy with brilinta and ASA. 9. GERD (gastroesophageal reflux disease) 10. Hypothyroid 11. History of malignant neoplasm of prostate 12. Hypertension 13. Dementia 14. Epigastric pain Patient condition Stable Plan: continue current care This inpt stay is expected to cross 2 MNs from start of care Yes at 0908
[2017-01-03 11:59] VITALS: BP 121/62
[2017-01-03] MEDS ORDERED: PANTOPRAZOLE SO40 M1 PO (14:04)
[2017-01-03] MEDS ORDERED: BRILINTA90 MG PO (14:05)
--- NOTE | 2017-01-03 14:15 | DISCHARGE SUMMARY STANDARD ---
Discharge Summary (FCA2) Date of admission: 12/30/16 Date of discharge: 01/03/17 Problem List: 1. Sinus bradycardia 2. Elevated troponin I level 3. Syncope 4. Lung mass 5. Hypokalemia 6. Diabetes mellitus 7. Paroxysmal atrial fibrillation 8. ASCVD (arteriosclerotic cardiovascular disease) 9. GERD (gastroesophageal reflux disease) 10. Hypothyroid 11. History of malignant neoplasm of prostate 12. Hypertension 13. Dementia 14. Epigastric pain History of present illness: Mr Rodriguez is an 81 year old male with a history of COPD, HLP, T2DM, DJD, Prostate CA, GERD Atrial fib, and Hypothyroidism who had a syncopal episode when in his car in the [facility] parking lot. His son was with him at the time and assisted him to the ER via wheelchair. He was felt to be having a stroke and had an immediate CT of the head which showed nothing acute. Patient did complain of CP on the way to CT but denied afterward. He also denied nausea and vomiting although he vomited on the way to CT. His nurse noted multiple PVC's. With evaluation he was found to have a lung nodule on chest CT. He was admitted for further evaluation and treatment. Exam on admission: General appearance: alert, no acute distress, frail Eyes: anicteric ENT: mucous membranes moist, pharynx normal Neck: full range of motion, carotid bruit (present bilaterally), lymphadenopathy (absent), thyroid (normal) Cardiovascular: regular rate & rhythm, monitor showing SR with PAC's Respiratory: clear to auscultation (bilat anterior and posterior) ABD: non-distended, soft, no tenderness, no guarding, bowel sounds present Extremities: no peripheral edema, discoloration on lower extremities Skin: lesions (facial) Hospital Course: The lung nodule was first noted on CXR when he was out of town and dislocated his hip in September. He was admitted in [place] and routine CXR showed a 2 cm nodule in the [place]UB[place]. He was seen in the office in October and a repeat CXR was ordered but apparently never done. He denied chest pain, productive cough or increased SOA. He appeared to have lost weight and admitted his appetite had not been good. He was started on IVF and K+ replacement. A carotid US and Echo were ordered to w/u his syncope. His U/S showed less than 20% stenosis bilaterally. His echo showed a moderately enlarged left atrium, normal left ventricular size, mild concentric left ventricular hypertrophy, an estimated ejection fraction of 55% with no obvious regional wall motion abnormality, grade 1 diastolic dysfunction, a mildly enlarged right ventricle with normal contractility, and trace aortic, and mild mitral and tricuspid regurgitation. The patient's troponins returned elevated and Cardiology was consulted for further evaluation. Severe Coronary artery calcifications were noted on CT of chest. EKG's showed sinus bradycardia and telemetry showed rates into the 30's at times. Cardiology performed a cath and found critical 2 vessel coronary artery disease. They successfully stented the proximal LAD and distal dominant right coronary artery. They recommended brilinta and aspirin for 30 days and cardiac rehabilitation. The patient had no further syncopal episodes after stenting. He did have episodes of bradycardia but cardiology had no plans for a pacemaker. He was seen by PT and they felt he could return home or to a alf facility for short term rehab. He and his family decided on short term rehab. A bed was found for him at [facility] and he is stable to be discharged. He is still contemplating any further workup of presumed lung cancer. Discharge medications: Stop taking the following medications: DIGOXIN (Digox) 125 MCG TABLET ORAL DAILY CHOLESTYRAMINE/ASPARTAME (Cholestyramine Light Packet) 4 GM POWD.PACK ORAL TWICE A DAY Metolazone (Metolazone 5MG Tablet) 5 MG TABLET ORAL DAILY Continue taking these medications: Aspirin (Aspirin EC) 81 MG TABLET. 81 MILLIGRAM ORAL DAILY Furosemide (Furosemide 40MG) 40 MG TABLET 40 MILLIGRAM ORAL DAILY POTASSIUM CHL (Potassium Chloride) 10 MEQ TABLET.ER 10 Milliequivalent ORAL DAILY Losartan Potassium (Losartan 100MG) 100 MG TABLET 100 MILLIGRAM ORAL DAILY Levothyroxine Sodium (Levothyroxine 0.075MG) 75 MCG TABLET 0.075 MILLIGRAM ORAL DAILY Omeprazole (Omeprazole 40MG) 40 MG CAPSULE.DR 40 MILLIGRAM ORAL DAILY Qty = 30 TAMSULOSIN HCL (Flomax 0.4MG) 0.4 MG CAP.ER.24H 0.4 MILLIGRAM ORAL AT BEDTIME NIGHTLY Amlodipine Besylate (Amlodipine) 10 MG TABLET 5 MILLIGRAM ORAL DAILY Ibuprofen (MOTRIN 800MG (generic) Tablet) 800 MG TABLET 800 MILLIGRAM ORAL THREE TIMES A DAY Mirtazapine (Remeron) 15 MG TAB.RAPDIS 15 MILLIGRAM ORAL AT BEDTIME NIGHTLY Risperidone (Risperdal 0.25MG Tab) 0.25 MG TABLET 0.25 MILLIGRAM ORAL TWICE A DAY Start taking the following new medications: Pantoprazole Sodium (Pantoprazole Sodium) 40 MG TABLET.DR 40 MILLIGRAM ORAL AT BEDTIME NIGHTLY Qty = 30 No Refills Ticagrelor (Brilinta) 90 MG TABLET 90 MILLIGRAM ORAL TWICE A DAY Qty = 60 No Refills Disposition: F/U with: Tawny Wilson MD Follow up: at [facility] Activity: Use assistive device Diet: No Concentrated Sweets Discharge to: SNF Specify Nsg Home: [facility]ERSON at 1416
[2017-01-03 15:38] VITALS: BP 121/62
== END 2017-01-03 15:45 | DRG 249 ==
LOC: ER 13:53 → 2ND 15:45
PROVIDERS: Emergency Medicine; Family Medicine; Internal Medicine
PROC: 02713EZ Dilation of Coronary Artery, Two Arteries with Two Intraluminal Devices, Percutaneous Approach (ICD-10-PCS; 2016-12-31)
PROC: B2111ZZ Fluoroscopy of Multiple Coronary Arteries using Low Osmolar Contrast (ICD-10-PCS; 2016-12-31)
PROC: B2151ZZ Fluoroscopy of Left Heart using Low Osmolar Contrast (ICD-10-PCS; 2016-12-31)
PROC: 4A023N7 Measurement of Cardiac Sampling and Pressure, Left Heart, Percutaneous Approach (ICD-10-PCS; principal; 2016-12-31 13:30)
DX: I25.119 Atherosclerotic heart disease of native coronary artery with unspecified angina pectoris (principal); J44.9 Chronic obstructive pulmonary disease, unspecified; E11.9 Type 2 diabetes mellitus without complications; I48.0 Paroxysmal atrial fibrillation; C34.12 Malignant neoplasm of upper lobe, left bronchus or lung; R55 Syncope and collapse; I10 Essential (primary) hypertension; R00.1 Bradycardia, unspecified; E87.6 Hypokalemia
CPT/HCPCS: C1725; C1769; C1876; J1644; J2405; Q9967

== ENCOUNTER 2017-01-04 13:46 | Observation (INO) | payer MEDICARE ==
[~2017-01-04] VITALS: Ht 180.3 cm; Wt 83.5 kg
[~2017-01-04 13:46] MED LIST changes: +BRILINTA90 MG PO; +CHOLESTYRA PO; +IBU800 MG PO; +METOLAZONE 5MG T5 MG PO; +NORCO 325 MG-51 TAB PO; +PANTOPRAZOLE SO40 M1 PO; +REMERON SOLTAB15 MG PO; +RISPERDAL 0.20.25 MG PO; +TRAMADOL 50MG T50 MG PO
[2017-01-04 13:47] VITALS: BP 134/61
--- OUTSIDE RECORDS SUMMARY | 2017-01-04 13:55 | External Medical Summary Rpt | CCD ---
Author Author , THELMA Organization THELMA Address Unknown Phone [email or web address] Purpose Continuity of Care Document - 10-29-2016 through 2016 Problems Code Diagnosis DOS Provider Status E11.40 TYPE 2 DIABETES MELLITUS WITH DIABETIC NEUROPATHY, UNSP E11.649 TYPE 2 DIABETES MELLITUS WITH HYPOGLYCEMI A WITHOUT COMA E11.9 TYPE 2 DIABETES MELLITUS WITHOUT COMPLICATIO NS E87.6 HYPOKALEMIA I48.0 PAROXYSMAL ATRIAL FIBRILLATIO N M25.552 PAIN IN LEFT HIP N30.90 CYSTITIS, UNSPECIFIED WITHOUT HEMATURIA R00.1 BRADYCARDIA , UNSPECIFIED R07.2 PRECORDIAL PAIN R19.7 DIARRHEA, UNSPECIFIED R41.82 ALTERED MENTAL STATUS, UNSPECIFIED R55 SYNCOPE AND COLLAPSE R60.0 LOCALIZED EDEMA R82.90 UNSPECIFIED ABNORMAL FINDINGS IN URINE S70.00XA CONTUSION OF UNSPECIFIED HIP, INITIAL ENCOUNTER Z96.649 PRESENCE OF UNSPECIFIED ARTIFICIAL HIP JOINT Results Labs Lab Lab Date Result Refere Interp Status Commen Order Detail nces retati t Range on Amylase ser/plas (01-03-2017 08:40) Amylase 01-03-2 = 50 25-115 complet 017 U/L ed ser/rachel 08:40 s Comprehensive metabolic panel (01-03-2017 08:40) Serum 01-03-2 = 1.0 1.1-1.8 complet or 017 ed plasma 08:40 albumin /globul in mass ra Serum 01-03-2 = 3.1 3.4-5.0 complet or 017 gm/dL ed plasma 08:40 albumin measure ment (mas Serum 01-03-2 = 86 46-116 complet or 017 U/L ed plasma 08:40 alkalin e phospha tase doyle Serum = 0.7 0.2-1.0 complet or 017 mg/dL ed plasma 08:40 total bilirub in measure m Serum 01-03-2 = 15 7-18 complet or 017 mg/dL ed plasma 08:40 urea nitroge n measure men Serum = 8.6 8.5-10. complet or 017 mg/dL 1 ed plasma 08:40 calcium measure ment (mas Serum = 104 98-107 complet or 017 mmoL/L ed plasma 08:40 chlorid e measure ment (mo Carbon = 29 21.0-32 complet dioxide 017 mmoL/L .0 ed 08:40 measure ment Serum = 0.9 0.70-1. complet or 017 mg/dL 30 ed plasma 08:40 creatin ine measure ment ( Estimat = 74 50-200 complet ion of 017 ML/MIN ed creatin 08:40 ine renal clearan ce Estimat = 81 >60 complet ed 017 ML/MIN ed glomeru 08:40 lar filtrat ion rate (GF Comment: REFERENCE RANGE: >60 ML/MIN/1.73 SQUARE METERS Comment: If this patient is -[place], then multiply the Comment: result by 1.210. Serum = 3.2 1.3-3.2 complet globuli 017 gm/dL ed n 08:40 measure ment (mass/v olume) Serum = 288 74-106 complet or 017 mg/dL ed plasma 08:40 glucose measure ment (mas Serum = 3.3 3.5-5.1 complet potassi 017 mmoL/L ed um 08:40 measure ment Serum = 139 136-145 complet sodium 017 mmoL/L ed measure 08:40 ment Serum = 12 15-37 complet or 017 U/L ed plasma 08:40 asparta te aminotr ansfera ALT = 15 12-78 complet (SGPT) 017 U/L ed ser/rachel 08:40 s Protein = 6.3 6.4-8.2 complet total 017 gm/dL ed ser/rachel 08:40 s Lipase measurement (01-03-2017 08:40) Lipase = 150 73-393 complet measure 017 U/L ed ment 08:40 Basic metabolic panel (01-01-2017 05:50) Serum 01-01- = 137 136-145 complet sodium 017 mmoL/L ed measure 05:50 ment Serum 15-2 = 3.1 3.5-5.1 complet potassi 017 mmoL/L ed um 05:50 measure ment Serum 15-2 = 323 74-106 complet or 017 mg/dL ed plasma 05:50 glucose measure ment (mas Estimat 01-01-2 = 81 >60 complet ed 017 ML/MIN ed glomeru 05:50 lar filtrat ion rate (GF Comment: REFERENCE RANGE: >60 ML/MIN/1.73 SQUARE METERS Comment: If this patient is -[place]serr[place], then multiply the Comment: result by 1.210. Estimat 01-01-2 = 74 50-200 complet ion of 017 ML/MIN ed creatin 05:50 ine renal clearan ce Serum 01-01-2 = 0.9 0.70-1. complet or 017 mg/dL 30 ed plasma 05:50 creatin ine measure ment ( Carbon 2 = 26 21.0-32 complet dioxide 017 mmoL/L .0 ed 05:50 measure ment Serum 15-2 = 101 98-107 complet or 017 mmoL/L ed plasma 05:50 chlorid e measure ment (mo Serum 01-01-2 = 9.0 8.5-10. complet or 017 mg/dL 1 ed plasma 05:50 calcium measure ment (mas Serum 01-01-2 = 19 7-18 complet or 017 mg/dL ed plasma 05:50 urea nitroge n measure men Activated clotting time (12-31-2016 14:12) Activat -14-2 = 282 74-125 complet ed 017 SEC ed clottin 14:12 g time Activated clotting time (12-31-2016 13:59) Activat 1114-2 = 335 74-125 complet ed 017 SEC ed clottin 13:59 g time Total prostate specific antigen (PSA) me (12-31-2016 07:15) Total --2 < 0.1 0.0-4.0 complet prostat 017 ng/mL ed e 07:15 specifi c antigen (PSA) me Comprehensive metabolic panel (12-31-2016 07:15) Protein 12-31-2 = 6.3 6.4-8.2 complet total 017 gm/dL ed ser/rachel 07:15 s ALT 12-31-2 = 13 12-78 complet (SGPT) 017 U/L ed ser/rachel 07:15 s Serum = 12 15-37 complet or 017 U/L ed plasma 07:15 asparta te aminotr ansfera Serum = 141 136-145 complet sodium 017 mmoL/L ed measure 07:15 ment Serum = 2.6 3.5-5.1 complet potassi 017 mmoL/L ed um 07:15 measure ment Comment: CRITICAL RESULTS Comment: RESULTS CALLED TO: KASSI 12/31/16 0741 Karel Roe Comment: Mel Serum = 181 74-106 complet or 017 mg/dL ed plasma 07:15 glucose measure ment (mas Serum = 3.2 1.3-3.2 complet globuli 017 gm/dL ed n 07:15 measure ment (mass/v olume) Estimat = 81 >60 complet ed 017 ML/MIN ed glomeru 07:15 lar filtrat ion rate (GF Comment: REFERENCE RANGE: >60 ML/MIN/1.73 SQUARE METERS Comment: If this patient is -[place], then multiply the Comment: result by 1.210. Estimat = 72 50-200 complet ion of 017 ML/MIN ed creatin 07:15 ine renal clearan ce Serum = 0.9 0.70-1. complet or 017 mg/dL 30 ed plasma 07:15 creatin ine measure ment ( Carbon = 33 21.0-32 complet dioxide 017 mmoL/L .0 ed 07:15 measure ment Serum = 103 98-107 complet or 017 mmoL/L ed plasma 07:15 chlorid e measure ment (mo Serum = 8.7 8.5-10. complet or 017 mg/dL 1 ed plasma 07:15 calcium measure ment (mas Serum = 11 7-18 complet or 017 mg/dL ed plasma 07:15 urea nitroge n measure men Serum = 0.7 0.2-1.0 complet or 017 mg/dL ed plasma 07:15 total bilirub in measure m Serum = 81 46-116 complet or 017 U/L ed plasma 07:15 alkalin e phospha tase doyle Serum = 3.1 3.4-5.0 complet or 017 gm/dL ed plasma 07:15 albumin measure ment (mas Serum = 1.0 1.1-1.8 complet or 017 ed plasma 07:15 albumin /globul in mass ra Brain natriuretic peptide (12-31-2016 07:15) Brain = 207 0-100 complet natriur 017 pg/mL ed etic 07:15 peptide CBC w auto diff (12-31-2016 07:15) Blood = 7.8 4.8-10. complet leukocy 017 K/MM3 8 ed ramos 07:15 count (number /volume ) Automat = 14.5 11.5-17 complet ed 017 % .5 ed erythro 07:15 cyte distrib ution width Red = 4.36 4.6-6.2 complet blood 017 M/mm3 ed cell 07:15 count Blood = 298 142-424 complet platele 017 K/mm3 ed t count 07:15 Automat = 7.1 7.4-10. complet ed 017 fl 4 ed blood 07:15 platele t mean volume doyle [place] % = 6.4 % 1.7-9.3 complet 017 ed 07:15 Absolut = 0.5 0.1-1.0 complet e 017 K/mm3 ed monocyt 07:15 e count Automat = 80.1 82.2-97 complet ed 017 fl .8 ed erythro 07:15 cyte mean corpusc ular v Automat = 32.0 31.8-35 complet ed 017 g/dl .4 ed erythro 07:15 cyte mean corpusc ular h Mean = 25.7 27-31.2 complet corpusc 017 pg ed ular 07:15 hemoglo bin (MCH) determ Lymphoc = 23.5 10-50 complet yte 017 % ed count, 07:15 blood, automat ed Absolut = 1.8 0.7-4.5 complet e 017 K/mm3 ed lymphoc 07:15 yte count Blood = 11.2 14.1-18 complet hemoglo 017 g/dL .0 ed bin 07:15 measure ment (mass/v olum Blood = 34.9 42.0-52 complet hematoc 017 % .0 ed rit 07:15 (volume fractio n) Granulo = 66.0 37.0-80 complet cyte 017 % .0 ed percent 07:15 age Blood = 5.1 1.3-8.0 complet granulo 017 K/mm3 ed cytes 07:15 automat ed count (numb Automat = 3.4 % 0.1-12. complet ed 017 0 ed blood 07:15 eosinop hils/10 0 leukocy t Automat = 0.3 0.0-0.4 complet ed 017 K/mm3 ed blood 07:15 eosinop hil count Baso % = 0.7 % 0.1-2.0 complet 017 ed 07:15 Automat = 0.1 0-0.2 complet ed 017 K/MM3 ed blood 07:15 basophi l count (count/ vo Cardiac enzymes (12-30-2016 23:00) Serum 2 = 0.14 0.00-0. complet or 017 ng/mL 06 ed plasma 23:00 troponi n i.cardi ac measu Comment: 0.04 - 0.49 IS AN INDETERMINANT ZONE Comment: And can be consistent with the following diseases: Comment: Comment: Trauma Critically ill patients Joy >30% TBSA Comment: CHF Hypothyroidism Amyloidosis Comment: Hypertension Myocarditis Sepsis Comment: Hypotension Rhabdomyolysis Vital exhaust. Comment: Postop surgery Pulmonary embolism CVA Comment: Renal failure Acute neurological disease Atrial fib. Serum 12-30-2 = 75 39-308 complet or 017 U/L ed plasma 23:00 creatin e kinase measure m Serum = 3.0 0.0-3.6 complet or 017 ng/mL ed plasma 23:00 creatin e kinase MB measu Serum = 4.0 0-4.0 complet or 017 U/L ed plasma 23:00 creatin e kinase MB (CK-M Cardiac enzymes (12-30-2016 16:55) Serum 12-30-2 = 0.09 0.00-0. complet or 017 ng/mL 06 ed plasma 16:55 troponi n i.cardi ac measu Comment: 0.04 - 0.49 IS AN INDETERMINANT ZONE Comment: And can be consistent with the following diseases: Comment: Comment: Trauma Critically ill patients Joy >30% TBSA Comment: CHF Hypothyroidism Amyloidosis Comment: Hypertension Myocarditis Sepsis Comment: Hypotension Rhabdomyolysis Vital exhaust. Comment: Postop surgery Pulmonary embolism CVA Comment: Renal failure Acute neurological disease Atrial fib. Serum = 81 39-308 complet or 017 U/L ed plasma 16:55 creatin e kinase measure m Serum = 2.5 0.0-3.6 complet or 017 ng/mL ed plasma 16:55 creatin e kinase MB measu Serum = 3.1 0-4.0 complet or 017 U/L ed plasma 16:55 creatin e kinase MB (CK-M Urinalysis with microscopy (12-30-2016 14:55) Urine = NONE O complet leukocy 017 wbc/hpf ed ramos 14:55 count (number /volume ) Urine 0.2 0.2 NEG complet urobili 017 L ed nogen 14:55 E.U./dL detecti on by test str [place] 5-10 OCC complet s 017 5-10 L ed epithel 14:55 #/hpf ial cells detecti on in u Urine = 1.020 1.005-1 complet specifi 017 .030 ed c 14:55 gravity measure ment Erythro NONE 0 complet cytes 017 NONE L ed detecti 14:55 rbc/hpf on in urine sedimen t Urine = NEG complet protein 017 NEGATIV ed 14:55 E mg/dL measure ment by automat ed t Urine = 6.0 5.0-8.5 complet pH 017 ed 14:55 Urine NEGATIV NEG complet nitrite 017 E ed 14:55 NEGATIV detecti E L on by test strip Mucus NEGATIV NEG complet detecti 017 E ed on in 14:55 NEGATIV urine E L sedimen t by lig Urine TRACE NEG complet ketones 017 TRACE L ed 14:55 mg/dL detecti on by automat ed ramos Glucose 3 + NEG complet ur 017 ed test 14:55 strip Urine YELLOW YELLOW complet color 017 YELLOW ed 14:55 L Urine NEGATIV NEG complet blood 017 E ed detecti 14:55 NEGATIV on E L Urine NEGATIV NEG complet total 017 E ed bilirub 14:55 NEGATIV in E L detecti on by test Bacteri NONE O complet a 017 NONE L ed detecti 14:55 on in urine sedimen t by Urine CLEAR CLEAR complet appeara 017 CLEAR L ed nce 14:55 determi nation Urinalysis dipstick W Reflex Microscopic panel in [...] 14:55 ce] in Urine by Test strip CBC w auto diff (12-30-2016 13:55) Blood = 12.8 14.1-18 complet hemoglo 017 g/dL .0 ed bin 13:55 measure ment (mass/v olum Absolut = 4.7 0.7-4.5 complet e 017 K/mm3 ed lymphoc 13:55 yte count Lymphoc = 35.0 10-50 complet yte 017 % ed count, 13:55 blood, automat ed Mean = 25.8 27-31.2 complet corpusc 017 pg ed ular 13:55 hemoglo bin (MCH) determ Automat = 31.7 31.8-35 complet ed 017 g/dl .4 ed erythro 13:55 cyte mean corpusc ular h Automat = 81.2 82.2-97 complet ed 017 fl .8 ed erythro 13:55 cyte mean corpusc ular v Absolut = 0.6 0.1-1.0 complet e 017 K/mm3 ed monocyt 13:55 e count [place] % = 4.6 % 1.7-9.3 complet 017 ed 13:55 Automat = 6.9 7.4-10. complet ed 017 fl 4 ed blood 13:55 platele t mean volume doyle Blood = 392 142-424 complet platele 017 K/mm3 ed t count 13:55 Red = 4.96 4.6-6.2 complet blood 017 M/mm3 ed cell 13:55 count Automat = 14.6 11.5-17 complet ed 017 % .5 ed erythro 13:55 cyte distrib ution width Blood = 13.6 4.8-10. complet leukocy 017 K/MM3 8 ed ramos 13:55 count (number /volume ) Automat = 0.1 0-0.2 complet ed 017 K/MM3 ed blood 13:55 basophi l count (count/ vo Baso % = 0.7 % 0.1-2.0 complet 017 ed 13:55 Automat = 0.2 0.0-0.4 complet ed 017 K/mm3 ed blood 13:55 eosinop hil count Automat = 1.3 % 0.1-12. complet ed 017 0 ed blood 13:55 eosinop hils/10 0 leukocy t Blood = 7.9 1.3-8.0 complet granulo 017 K/mm3 ed cytes 13:55 automat ed count (numb Granulo = 58.4 37.0-80 complet cyte 017 % .0 ed percent 13:55 age Blood = 40.3 42.0-52 complet hematoc 017 % .0 ed rit 13:55 (volume fractio n) Comprehensive metabolic panel (12-30-2016 13:55) Protein = 7.5 6.4-8.2 complet total 017 gm/dL ed ser/rachel 13:55 s ALT = 13 12-78 complet (SGPT) 017 U/L ed ser/rachel 13:55 s Serum = 12 15-37 complet or 017 U/L ed plasma 13:55 asparta te aminotr ansfera Serum = 137 136-145 complet sodium 017 mmoL/L ed measure 13:55 ment Serum = 2.7 3.5-5.1 complet potassi 017 mmoL/L ed um 13:55 measure ment Comment: CRITICAL RESULTS Comment: RESULTS CALLED TO: DUARTE 12/30/16 1506 Aurelia Dominguez Serum = 295 74-106 complet or 017 mg/dL ed plasma 13:55 glucose measure ment (mas Estimat = 72 >60 complet ed 017 ML/MIN ed glomeru 13:55 lar filtrat ion rate (GF Comment: REFERENCE RANGE: >60 ML/MIN/1.73 SQUARE METERS Comment: If this patient is -[place], then multiply the Comment: result by 1.210. Estimat = 76 50-200 complet ion of 017 ML/MIN ed creatin 13:55 ine renal clearan ce Serum = 1.0 0.70-1. complet or 017 mg/dL 30 ed plasma 13:55 creatin ine measure ment ( Carbon = 28 21.0-32 complet dioxide 017 mmoL/L .0 ed 13:55 measure ment Serum = 98 98-107 complet or 017 mmoL/L ed plasma 13:55 chlorid e measure ment (mo Serum = 8.7 8.5-10. complet or 017 mg/dL 1 ed plasma 13:55 calcium measure ment (mas Serum = 12 7-18 complet or 017 mg/dL ed plasma 13:55 urea nitroge n measure men Serum = 0.5 0.2-1.0 complet or 017 mg/dL ed plasma 13:55 total bilirub in measure m Serum = 101 46-116 complet or 017 U/L ed plasma 13:55 alkalin e phospha tase doyle Serum = 3.8 3.4-5.0 complet or 017 gm/dL ed plasma 13:55 albumin measure ment (mas Serum = 3.7 1.3-3.2 complet globuli 017 gm/dL ed n 13:55 measure ment (mass/v olume) Serum = 1.0 1.1-1.8 complet or 017 ed plasma 13:55 albumin /globul in mass ra Cardiac enzymes (12-30-2016 13:55) Serum < 0.02 0.00-0. complet or 017 ng/mL 06 ed plasma 13:55 troponi n i.cardi ac measu Serum = 85 39-308 complet or 017 U/L ed plasma 13:55 creatin e kinase measure m Serum = 2.5 0.0-3.6 complet or 017 ng/mL ed plasma 13:55 creatin e kinase MB measu Serum 11-13-2 = 2.9 0-4.0 complet or 017 U/L ed plasma 13:55 creatin e kinase MB (CK-M Lipase measurement (12-30-2016 13:55) Lipase = 165 73-393 complet measure 017 U/L ed ment 13:55 Amylase ser/plas (12-30-2016 13:55) Amylase = 60 25-115 complet 017 U/L ed ser/rachel 13:55 s Magnesium measurement (12-30-2016 13:55) Magnesi 2 = 1.9 1.4-2.2 complet um 017 mg/dL ed measure 13:55 ment Digoxin level (12-30-2016 13:55) Digoxin 2 = 0.56 1.15-2. complet level 017 ng/mL 56 ed 13:55
--- OUTSIDE RECORDS SUMMARY | 2017-01-04 13:55 | External Medical Summary Rpt | CCD ---
Author Author , THELMA RENEE Address Unknown Phone [email or web address] Immunization Name Date Rout CVX Reac Dose [...]
--- OUTSIDE RECORDS SUMMARY | 2017-01-04 13:55 | External Medical Summary Rpt | CCD ---
Author Author , THELMA Organization THELMA Address Unknown Phone [email or web address] Purpose Continuity of Care Document - 10-29-2016 [...] SQUARE METERS Comment: If this patient is -[place], then multiply the Comment: result by 1.210. [...] SQUARE METERS Comment: If this patient is -[place], then multiply the Comment: result by 1.210. [...] SQUARE METERS Comment: If this patient is -[place], then multiply the Comment: result by 1.210. [...] blood 07:15 platele t mean volume doyle [place] % = 6.4 % 1.7-9.3 complet 017 [...] 017 K/mm3 ed monocyt 13:55 e count [place] % = 4.6 % 1.7-9.3 complet 017 [...] SQUARE METERS Comment: If this patient is -[place], then multiply the Comment: result by 1.210. [...]
--- OUTSIDE RECORDS SUMMARY | 2017-01-04 13:55 | External Medical Summary Rpt | CCD ---
Author Author , THELMA RENEE Address Unknown Phone [email or web address] Immunization Name Date Rout CVX Reac Dose [...]
--- OUTSIDE RECORDS SUMMARY | 2017-01-04 13:56 | External Medical Summary Rpt ---
Author Author ANDREWBRENNAN Garcia, [facility] Organization [facility] [employer] Address Unknown Phone Unavailable Results Amylase [Enzymatic activity/volume] in Serum or Plasma Observa Value Referen Units Interpr Notes Date tion ce etation Range Amylase 25 - 115 U/L Normal No Jan 03 [Enzymati informati 2016 8:40 c on in AM activity/ source volume] data in Serum or Plasma Comprehensive metabolic 2000 panel in Serum or Plasma Observa Value Referen Units Interpr Notes Date tion ce etation Range Albumin/G 1.1 - 1.8 No Low No Jan 03 lobulin informati informati 2016 8:40 [Mass on in on in AM ratio] in source source Serum or data data Plasma Albumin 3.4 - 5.0 gm/dL Low No Jan 03 [Mass/vol informati 2016 8:40 ume] in on in AM Serum or source Plasma data Alkaline 46 - 116 U/L Normal No Jan 03 phosphata informati 2016 8:40 se on in AM [Enzymati source c data activity/ volume] in Serum or Plasma Bilirubin 0.2 - 1.0 mg/dL Normal No Jan 03 .total informati 2016 8:40 [Mass/vol on in AM ume] in source Serum or data Plasma Urea 7 - 18 mg/dL Normal No Jan 03 nitrogen informati 2016 8:40 [Mass/vol on in AM ume] in source Serum or data Plasma Calcium 8.5 - mg/dL Normal No Jan 03 [Mass/vol 10.1 informati 2016 8:40 ume] in on in AM Serum or source Plasma data Chloride 98 - 107 mmoL/L Normal No Jan 03 [Moles/vo informati 2016 8:40 lume] in on in AM Serum or source Plasma data Carbon 21.0 - mmoL/L Normal No Jan 03 dioxide, 32.0 informati 2017 8:40 total on in AM [Moles/vo source lume] in data Serum or Plasma Creatinin 0.70 - mg/dL Normal No Jan 03 e 1.30 informati 2017 8:40 [Mass/vol on in AM ume] in source Serum or data Plasma Creatinin 50 - 200 ML/MIN Normal No Jan 03 e renal informati 2016 8:40 clearance on in AM source predicted data by Cockcroft -Gault formula Estimated >60 ML/MIN No REFERENCE Jan 03 informati RANGE: 2017 8:40 glomerula on in >60 AM r source ML/MIN/1. filtratio data 73 SQUARE n rate METERSIf (GF this patient is -A merican, then multiply theresult by 1.210. Globulin 1.3 - 3.2 gm/dL Normal No Jan 03 [Mass/vol informati 2016 8:40 ume] in on in AM Serum source data Glucose 74 - 106 mg/dL High No Jan 03 [Mass/vol informati 2016 8:40 ume] in on in AM Serum or source Plasma data Potassium 3.5 - 5.1 mmoL/L Low No Jan 03 informati 2016 8:40 [Moles/vo on in AM lume] in source Serum or data Plasma Sodium 136 - 145 mmoL/L Normal No Jan 03 [Moles/vo informati 2016 8:40 lume] in on in AM Serum or source Plasma data Aspartate 15 - 37 U/L Low No Jan 03 informati 2016 8:40 aminotran on in AM sferase source [Enzymati data c activity/ volume] in Serum or Plasma Alanine 12 - 78 U/L Normal No Jan 03 aminotran informati 2016 8:40 sferase on in AM [Enzymati source c data activity/ volume] in Serum or Plasma Protein 6.4 - 8.2 gm/dL Low Jan 03 [Mass/vol informati 2016 8:40 ume] in on in AM Serum or source Plasma data Lipase [Enzymatic activity/volume] in Serum or Plasma Observa Value Referen Units Interpr Notes Date tion ce etation Range Lipase 73 - 393 U/L Normal No Jan 03 [Enzymati informati 2016 8:40 c on in AM activity/ source volume] data in Serum or Plasma Basic metabolic panel in Blood Observa Value Referen Units Interpr Notes Date tion ce etation Range Urea 7 - 18 mg/dL High No Jan 01 nitrogen informati 2016 5:50 [Mass/vol on in AM ume] in source Serum or data Plasma Calcium 8.5 - mg/dL Normal No Jan 01 [Mass/vol 10.1 informati 2016 5:50 ume] in on in AM Serum or source Plasma data Chloride 98 - 107 mmoL/L Normal No Jan 01 [Moles/vo informati 2016 5:50 lume] in on in AM Serum or source Plasma data Carbon 21.0 - mmoL/L Normal No Jan 01 dioxide, 32.0 informati 2016 5:50 total on in AM [Moles/vo source lume] in data Serum or Plasma Creatinin 0.70 - mg/dL Normal No Jan 01 e 1.30 informati 2016 5:50 [Mass/vol on in AM ume] in source Serum or data Plasma Creatinin 50 - 200 ML/MIN Normal No Jan 01 e renal informati 2016 5:50 clearance on in AM source predicted data by Cockcroft -Gault formula Estimated >60 ML/MIN No REFERENCE Jan 01 informati RANGE: 2017 5:50 glomerula on in >60 AM r source ML/MIN/1. filtratio data 73 SQUARE n rate METERSIf (GF this patient is -A merican, then multiply theresult by 1.210. Glucose 74 - 106 mg/dL High No Jan 01 [Mass/vol informati 2016 5:50 ume] in on in AM Serum or source Plasma data Potassium 3.5 - 5.1 mmoL/L Low No Jan 01 informati 2016 5:50 [Moles/vo on in AM lume] in source Serum or data Plasma Sodium 136 - 145 mmoL/L Normal No Jan 01 [Moles/vo informati 2016 5:50 lume] in on in AM Serum or source Plasma data Activated clotting time in Blood by Coagulation assay Observa Value Referen Units Interpr Notes Date tion ce etation Range Activated 74 - 125 SEC High No Dec 31 clotting alert informati 2016 2:12 time in on in PM Blood by source Coagulati data on assay Activated clotting time in Blood by Coagulation assay Observa Value Referen Units Interpr Notes Date tion ce etation Range Activated 74 - 125 SEC High No Dec 31 clotting alert informati 2016 1:59 time in on in PM Blood by source Coagulati data on assay Natriutietic peptide B [Mass/volume] in Serum or Plasma Observa Value Referen Units Interpr Notes Date tion ce etation Range Natriutie 0 - 100 pg/mL High No Nov 14 tic informati 2017 7:15 peptide B on in AM source [Mass/vol data ume] in Serum or Plasma Comprehensive metabolic 2000 panel in Serum or Plasma Observa Value Referen Units Interpr Notes Date tion ce etation Range Albumin/G 1.1 - 1.8 No Low No Dec 14 lobulin informati informati 2016 7:15 [Mass on in on in AM ratio] in source source Serum or data data Plasma Albumin 3.4 - 5.0 gm/dL Low No Dec 14 [Mass/vol informati 2016 7:15 ume] in on in AM Serum or source Plasma data Alkaline 46 - 116 U/L Normal No Dec 14 phosphata informati 2016 7:15 se on in AM [Enzymati source c data activity/ volume] in Serum or Plasma Bilirubin 0.2 - 1.0 mg/dL Normal No Dec 14 .total informati 2016 7:15 [Mass/vol on in AM ume] in source Serum or data Plasma Urea 7 - 18 mg/dL Normal No Dec 31 nitrogen informati 2016 7:15 [Mass/vol on in AM ume] in source Serum or data Plasma Calcium 8.5 - mg/dL Normal No Dec 31 [Mass/vol 10.1 informati 2016 7:15 ume] in on in AM Serum or source Plasma data Chloride 98 - 107 mmoL/L Normal No Dec 31 [Moles/vo informati 2016 7:15 lume] in on in AM Serum or source Plasma data Carbon 21.0 - mmoL/L High No Dec 31 dioxide, 32.0 informati 2017 7:15 total on in AM [Moles/vo source lume] in data Serum or Plasma Creatinin 0.70 - mg/dL Normal No Dec 14 e 1.30 informati 2016 7:15 [Mass/vol on in AM ume] in source Serum or data Plasma Creatinin 50 - 200 ML/MIN Normal No Dec 14 e renal informati 2016 7:15 clearance on in AM source predicted data by Cockcroft -Gault formula Estimated >60 ML/MIN No REFERENCE Dec 14 informati RANGE: 2017 7:15 glomerula on in >60 AM r source ML/MIN/1. filtratio data 73 SQUARE n rate METERSIf (GF this patient is -A merican, then multiply theresult by 1.210. Globulin 1.3 - 3.2 gm/dL Normal No Nov 14 [Mass/vol informati 2016 7:15 ume] in on in AM Serum source data Glucose 74 - 106 mg/dL High No Dec 31 [Mass/vol informati 2016 7:15 ume] in on in AM Serum or source Plasma data Potassium 3.5 - 5.1 mmoL/L Low alert Dec 31 2016 7:15 [Moles/vo CRITICAL AM lume] in RESULTS Serum or Plasma RESU LTS CALLED TO: KASSI 12/31/16 0741 Lila Roe Sodium 136 - 145 mmoL/L Normal No Dec 31 [Moles/vo informati 2016 7:15 lume] in on in AM Serum or source Plasma data Aspartate 15 - 37 U/L Low No Dec 31 informati 2016 7:15 aminotran on in AM sferase source [Enzymati data c activity/ volume] in Serum or Plasma Alanine 12 - 78 U/L Normal No Dec 31 aminotran 2016 7:15 sferase on in AM [Enzymati source c data activity/ volume] in Serum or Plasma Protein 6.4 - 8.2 gm/dL Low No Dec 31 [Mass/vol informati 2016 7:15 ume] in on in AM Serum or source Plasma data CBC W Auto Differential panel in Blood Observa Value Referen Units Interpr Notes Date tion ce etation Range Basophils 0 - 0.2 K/MM3 Normal No Dec 312016 7:15 [#/volume on in AM ] in source Blood by data Automated count Basophils 0.1 - 2.0 % Normal No Dec 31 informati 2016 7:15 leukocyte on in AM s in source Blood by data Automated count Eosinophi 0.0 - 0.4 K/mm3 Normal No Dec 31 ls informati 2016 7:15 [#/volume on in AM ] in source Blood by data Automated count Eosinophi 0.1 - % Normal No Dec 31 ls/100 12.0 informati 2016 7:15 leukocyte on in AM s in source Blood by data Automated count Granulocy 1.3 - 8.0 K/mm3 Normal No Dec 31 ramos informati 2016 7:15 [#/volume on in AM ] in source Blood by data Automated count Granulocy 37.0 - % Normal No Dec 31 ramos/100 80.0 informati 2016 7:15 leukocyte on in AM s in source Blood by data Automated count Hematocri 42.0 - % Low No Dec 31 t [Volume 52.0 informati 2016 7:15 on in AM Fraction] source of Blood data Hemoglobi 14.1 - g/dL Low No Dec 14 n 18.0 informati 2016 7:15 [Mass/vol on in AM ume] in source Blood data Lymphocyt 0.7 - 4.5 K/mm3 Normal No Dec 14 es informati 2016 7:15 [#/volume on in AM ] in source Unspecifi data ed specimen by Automated count Lymphocyt 10 - 50 % Normal No Dec 31 es informati 2016 7:15 [#/volume on in AM ] in source Unspecifi data ed specimen by Automated count Erythrocy 27 - 31.2 pg Low No Dec 31 te mean informati 2016 7:15 corpuscul on in AM ar source hemoglobi data n [Entitic mass] Erythrocy 31.8 - g/dl Normal No Dec 31 te mean 35.4 informati 2016 7:15 corpuscul on in AM ar source hemoglobi data n concentra tion [Mass/vol ume] by Automated count Erythrocy 82.2 - fl Low No Dec 31 te mean 97.8 informati 2016 7:15 corpuscul on in AM ar volume source [Entitic data volume] by Automated count Monocytes 0.1 - 1.0 K/mm3 Normal No Dec 31 informati 2016 7:15 [#/volume on in AM ] in source Blood by data Automated count Monocytes 1.7 - 9.3 % Normal No Dec 14 /100 informati 2017 7:15 leukocyte on in AM s in source Blood by data Automated count Platelet 7.4 - fl Low No Dec 31 mean 10.4 informati 2017 7:15 volume on in AM [Entitic source volume] data in Blood by Automated count Platelets 142 - 424 K/mm3 Normal No Dec 14 informati 2016 7:15 [#/volume on in AM ] in source Blood data Erythrocy 4.6 - 6.2 M/mm3 Low No Dec 14 ramos informati 2016 7:15 [#/volume on in AM ] in source Amniotic data fluid Erythrocy 11.5 - % Normal No Dec 31 te 17.5 informati 2016 7:15 distribut on in AM ion width source [Entitic data volume] by Automated count Leukocyte 4.8 - K/MM3 No No Dec 14 s 10.8 informati informati 2016 7:15 [#/volume on in on in AM ] in source source Blood data data Cardiac enzymes Observa Value Referen Units Interpr Notes Date tion ce etation Range Creatine 0 - 4.0 U/L Normal No Dec 30 kinase.MB informati 2016 /Creatine on in 11:00 PM source kinase.to data jossy [Ratio] in Serum or Plasma Creatine 0.0 - 3.6 ng/mL Normal No Dec 30 kinase.MB informati 2016 on in 11:00 PM [Mass/vol source ume] in data Serum or Plasma Creatine 39 - 308 U/L Normal No Dec 30 kinase informati 2016 [Enzymati on in 11:00 PM c source activity/ data volume] in Serum or Plasma Troponin 0.00 - ng/mL High 0.04 - Dec 30 I.cardiac 0.06 0.49 IS 2016 AN 11:00 PM [Mass/vol INDETERMI ume] in NANT Serum or ZONEAnd Plasma can be consisten t with the following diseases: Trauma Criticall y ill patients Joy >30% TBSACHF Hypothyro idism Amyloidos isHyperte nsion Myocardit is SepsisHyp otension Rhabdomyo lysis Vital exhaust.P ostop surgery Pulmonary embolism CVARenal failure Acute neurologi florencio disease Atrial fib. Cardiac enzymes Observa Value Referen Units Interpr Notes Date tion ce etation Range Creatine 0 - 4.0 U/L Normal No Dec 30 kinase.MB informati 2016 4:55 /Creatine on in PM source kinase.to data jossy [Ratio] in Serum or Plasma Creatine 0.0 - 3.6 ng/mL Normal No Dec 30 kinase.MB informati 2016 4:55 on in PM [Mass/vol source ume] in data Serum or Plasma Creatine 39 - 308 U/L Normal No Dec 30 kinase informati 2016 4:55 [Enzymati on in PM c source activity/ data volume] in Serum or Plasma Troponin 0.00 - ng/mL High 0.04 - Dec 30 I.cardiac 0.06 0.49 IS 2016 4:55 AN PM [Mass/vol INDETERMI ume] in NANT Serum or ZONEAnd Plasma can be consisten t with the following diseases: Trauma Criticall y ill patients Joy >30% TBSACHF Hypothyro idism Amyloidos isHyperte nsion Myocardit is SepsisHyp otension Rhabdomyo lysis Vital exhaust.P ostop surgery Pulmonary embolism CVARenal failure Acute neurologi florencio disease Atrial fib. Urinalysis dipstick W Reflex Microscopic panel in [...] No Dec 30 gravity 1.030 informati informati 2017 2:55 of Urine on in on in PM source source data data Epithel 5-10 OCC #/hpf No No Dec 30 ial informa informa 2017 cells.s tion in tion in 2:55 PM [...] source Urine data data by Test strip Digoxin [Mass/volume] in Serum or Plasma Observa Value Referen Units Interpr Notes Date ti ce etation Range Digoxin 1.15 - ng/mL Low No Dec 30 [Mass/vol 2.56 informati 2016 1:55 ume] in on in PM Serum or source Plasma data Magnesium [Moles/volume] in Unspecified specimen Observa Value [...] Interpr Notes Date tion ce etation Range Lipase 73 - 393 [...] 2.0 % Normal No Dec 30 /100 informati 2017 1:55 leukocyte on in PM s in source Blood by data Automated count Eosinophi 0.0 - 0.4 K/mm3 Normal No Dec 30 ls ati 2016 1:55 [#/volume on in PM ] [...] % Normal No Dec 30 ramos/100 80.0 informati 2016 1:55 leukocyte on in PM s in source Blood by data Automated count Hematocri 42.0 - % Low No Dec 30 t [Volume 52.0 2016 1:55 [...] Lymphocyt 10 - 50 % Normal No Dec 30 es 2016 1:55 [#/volume on in PM ] in source Unspecifi data ed specimen by Automated count Erythrocy 27 - 31.2 pg Low No Dec 30 te mean 2016 1:55 corpuscul [...] - 1.0 K/mm3 Normal No Dec 30 inform2016 1:55 [#/volume on in PM ] in source Blood by data Automated count Monocytes 1.7 - 9.3 % Normal No Dec 30 /100 informati 2017 1:55 leukocyte on in PM s in source Blood by data Automated count Platelet 7.4 - fl Low No Dec 30 mean 10.4 informati 2017 1:55 volume on in PM [Entitic source volume] data in Blood by Automated count Platelets 142 - 424 K/mm3 No Dec 30 informati informati 2016 1:55 [#/volume on in on in PM ] in source source Blood data data Erythrocy 4.6 - 6.2 M/mm3 Normal No Dec 30 ramos ati 2016 1:55 [#/volume on in PM ] in source Amniotic data fluid Erythrocy 11.5 - % Normal No Dec 30 te 17.5 informati 2016 1:55 distribut on in PM ion width source [Entitic data volume] by Automated count Leukocyte 4.8 - K/MM3 High No Dec 30 s 10.8 informati 2016 1:55 [...] pg/mL High No Sep 12 tic informati 2016 2:55 peptide B on in PM source [...] Low No Sep 12 [Mass/vol 10.1 informati 2016 2:55 ume] in on in [...] mg/dL High No Sep 12 [Mass/vol informati 2016 2:55 ume] in on in PM Serum or source Plasma data Potassium 3.5 - 5.1 mmoL/L Low alert Sep 12 2016 2:55 [Moles/vo CRITICAL PM lume] in RESULTS Serum or Plasma RESU LTS CALLED TO: ALBINA 10/29/16 1523 Huber,[place] nda Sodium 136 - 145 mmoL/L Normal No Sep 12 [Moles/vo informati 2017 2:55 lume] in on in PM Serum or source Plasma data Aspartate 15 - 37 U/L Low No Sep 12 informati 2017 2:55 aminotran on in PM sferase source [Enzymati data c activity/ volume] in Serum or Plasma Alanine 12 - 78 U/L Normal No Sep 12 aminotran informati 2016 2:55 sferase on in PM [Enzymati source [...] - 0.2 K/MM3 Normal No Sep 12 informati 2016 2:55 [#/volume on in PM ] in source Blood by data Automated count Basophils 0.1 - 2.0 % Normal No Sep 12 100 informati 2016 2:55 leukocyte on in PM [...] Normal No Sep 12 ramos/100 80.0 informati 2017 2:55 leukocyte on in PM [...] Normal No Sep 12 s 10.8 informati 2017 2:55 [#/volume on in PM ] in source Blood data
--- OUTSIDE RECORDS SUMMARY | 2017-01-04 13:56 | External Medical Summary Rpt ---
[...] RESU LTS CALLED TO: ALBINA 10/29/16 1523 Huber,[place] nda Sodium 136 - 145 mmoL/L Normal [...]
--- NOTE | 2017-01-04 14:00 | Emergency Room Report ---
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 N Clinical Suspician of Infection? Y Mental Status: 1 - Regular (Normal Baseline) Sepsis Risk:Low Sepsis Risk Have you (or family members/close friends) recently traveled outside the [place]? N If Yes, where/when: Have you had exposure to infectious disease within the past month? TB? Other? Specify: Patient states she's had chest heaviness today and rates it as 6/10 to complain of radiation his family states she started with chest heaviness at the long term was given 2 nitroglycerin which alleviated it, patient currently denies any headache or abdominal pain. She is a somewhat poor historian the family states that he has recently had stents placed by Dr. Horner. Comment [phone] sergei Loredo MD consulted. call out ALLERGIES Coded Allergies: Penicillins (I-RASH 01/04/17) chlordiazepoxide (STOPPED KIDNEYS 01/04/17) clidinium (STOPPPED KIDNEYS 01/04/17) darifenacin (From ENABLEX) (STOPPED KIDNEYS 01/04/17) iodine (ANXIETY/RASH 01/04/17) oxycodone (VOMITTING/HICCUPS 01/04/17) Home Medications Active Scripts Omeprazole (Omeprazole 40MG) 40 MG PO DAILY #30 ECC Ref 5 Prov: 01/08/16 Pantoprazole Sodium 40 MG PO QHS #30 TAB Prov: 01/03/17 Ticagrelor (Brilinta) 90 MG PO BID #60 TAB Prov: 01/03/17 Reported Medications Aspirin (Aspirin EC) 81 MG PO DAILY Amlodipine Besylate (Amlodipine) 5 MG PO DAILY Ibuprofen (MOTRIN 800MG (generic) Tablet) 800 MG PO TID Mirtazapine (Remeron) 15 MG PO QHS Risperidone (Risperdal 0.25MG Tab) 0.25 MG PO BID Levothyroxine Sodium (Levothyroxine 0.075MG) 0.075 MG PO DAILY Furosemide (Furosemide 40MG) 40 MG PO DAILY POTASSIUM CHL (Potassium Chloride) 10 MEQ PO DAILY Losartan Potassium (Losartan 100MG) 100 MG PO DAILY TAMSULOSIN HCL (Flomax 0.4MG) 0.4 MG PO QHS Discontinued Reported Medications CHOLESTYRAMINE/ASPARTAME (Cholestyramine Light Packet) 4 GM PO BID Metolazone (Metolazone 5MG Tablet) 5 MG PO DAILY DIGOXIN (Digox) 0.0625 MG PO DAILY History Medical History General CAD? Yes Angina: Yes [place]: No Hypertension? Yes Hyperlipidemia? Yes CHF? No DVT? No PE? No COPD? Yes Asthma? No Anemia? No GERD? Yes Gastric ulcers? No GI Bleed? No Hernia? No Thyroid Problems? Yes Hypothyroidism? Yes CVA? No Seizures? No Diabetes? Yes Insulin Dependent: No Insulin Pump: No Home FSBS? Yes Renal Insuffiency? No End Stage Renal Disease? No UTI? Yes Stones? No BPH? No GB Disease: Yes Nephritic Syndrome? No Asplenia? No Hepatitis? No Sickle Cell Disease? No Arthritis? Yes Migraines? No Cataracts? No Glaucoma? No MRSA? No HIV? No TB? No Anxiety? No Depression? No Cancer? Yes Site: PROSTATE More? No Additional hx: DJD AT FIB Immunization Hx Ped.Immunizations UTD Yes DT/Tetanus 1-4 Years Ago Flu [id number] Pneumonia Received In Past Surgical Hx Previous Surgery?Y RT TOTAL HIP REPLACEMENT Prostate Appendix ARTIF URINARY SPHINCTER L. 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 VARICOSE VEINS X3 BACK SX X3, METAL JOVANI SPRINTHER PUMP UROLOGY GALLBLADDER L HIP REDUCTION Family History Family Hx Diabetes Yes CAD Yes Hypertension No Hyperlipidemia No Cancer Yes TB No Social History Smoking Hx Smoker: Never Smoker Tobacco: No Type N/A Packs/day N/A Are you/the child exposed to second-hand smoke: No Alcohol Alcohol: No Review of Systems All Other Systems Reviewed and Negative Physical Exam Vital Signs Vital Signs Date Time Temp Pulse Resp B/P Pulse O2 O2 Flow FiO2 Ox Delivery Rate 01/04 1417 20 01/04 1347 98.2 66 20 134/61 100 General Appearance: Nontoxic Head: Normocephalic, without obvious abnormality, atraumatic. Eyes: conjunctiva/corneas clear ENT: Mucous membranes dry. Neck: No jugular venous distention. Cardiac: regular rate and rhythm Lungs: Clear to auscultation bilaterally Abdomen: Nontender, Nondistended, positive bowel sounds, no rebound : No CVA tenderness Extremities: no edema Musculoskeletal: No chest wall tenderness Skin: No rashes or lesions to exposed skin. Neurologic: Alert. No gross focal deficits Psychiatric: Normal affect (Gustavo BURT, [place]) General Appearance normal appearance Respiratory Status No: respiratory distress. Cardiovascular normal exam Neurologic alert Medical Decision Making LABS/Meds/Orders Pt receiving controlled substance in ED? No Comment Chest x-ray per my read has a LEFT upper lobe nodule, and some atelectasis lipase is somewhat elevated 584, jan 03 was 150. on repeat exam 410pm states has minimal tenderness to deep palpation, but nonfocal, and tolerated deep palpation without any guarding. he complains of some chest pain still, family at bedside. will get repeat ekg. 419pm call out to Katie Case. chandan Case 434 have discussed with Siri who desired me to send ekg per local protocol to him. 439 have called back Siri. 447 discussed with Siri at length. desires no heparin, continue brilinta as already scheduled. admit. 451 chandan Case. we are getting another troponin, admitting Results/Orders Laboratory Tests 01/04/17 1340: Lipase 584 H 01/04/17 1340: B-Natriuretic Peptide 71 01/04/17 1340: Sodium 136, Potassium 3.4 L, Chloride 100, Carbon Dioxide 28, BUN 13, Creatinine 1.0, Estimated Creat Clear 62, Estimated GFR (MDRD) 72, Glucose 368 H, Calcium 8.6, Total Bilirubin 0.5, AST 13 L, ALT 17, Alkaline Phosphatase 90, Creatine Kinase 46, CK-MB (CK-2) Rel Index 1.7, CK and CKMB Interp 0.8, Troponin I 0.05, Total Protein 6.6, Albumin 3.3 L, Globulin 3.3 H, Albumin/Globulin Ratio 1.0 L, WBC 8.4, RBC 4.50 L, Hgb 11.8 L, Hct 36.4 L, MCV 80.8 L, RDW 14.5, Plt Count 312, MPV 7.4, Gran % 63.2, Gran # 5.3, Lymphocytes % 28.1, Monocytes % 5.0, Eosinophils % 3.2, Basophils % 0.4, Lymphocytes # 2.3, Monocytes # 0.4, Eosinophils # 0.3, Basophils # 0.0, PUBS MCHC 32.5, MCH 26.2 L Current Medication Orders Sig/Lazaro Start time Last Medication Dose Route Stop Time Status Admin Morphine Sulfate 4 MG ONCE ONE 01/04 1415 DCr 01/04 IV 01/04 1416 1417 Nitroglycerin 0.4 MG [id number] PRN 01/04 1415 AC SL Ondansetron HCl 4 MG ONCE ONE 01/04 1415 DC 01/04 IV 01/04 1416 1417 Sodium Chloride 10 ML PRN PRN 01/04 1415 AC IV 01/05 1401 Ondansetron HCl 0 .STK-MED ONE 01/04 1413 DC .ROUTE Sodium Chloride 1,000 ML .STK-MED ONE 01/04 1413 DC IV Morphine Sulfate 0 .STK-MED ONE 01/04 1412 DCr .ROUTE Sodium Chloride 10 ML PRN PRN 01/04 1400 AC IV 01/05 1350 Sodium Chloride 1,000 ML .Q10H 01/04 1400 AC 01/04 IV 01/05 0200 1415 Orders Procedure Date/time Status Decision to admit 01/04 1618 Active [id number] BY SAME 01/04 1615 Active ELECTROCARDIOGRAM REQUEST 01/04 1615 Active LIPASE 01/04 1407 Complete BRAIN NATRIURETIC PEPTIDE 01/04 1400 Complete ELECTROCARDIOGRAM REQUEST 01/04 1351 Active CHEST-PORTABLE 01/04 1351 Active IV SALINE LOCK 01/04 1351 Active CBC WITH AUTO DIFF 01/04 1351 Complete CARDIAC ENZYMES 01/04 1351 Complete CHEM 12 PROFILE 01/04 1351 Complete 12 LEAD EKG-MIRLANDE (INITIAL) 01/04 1350 Active CM/EKG CM/EKG 1 Monitor Rhythm Normal Sinus Rhythm Rate 70 Ectopy No Comments Nonspecific ST-T wave abnormalities CM/EKG 2 Monitor Rhythm Sinus Bradycardia Rate [address] depression not is prominent as previous electrocardiogram here Departure Departure Time of Disposition 1618 Disposition Still a Patient Clinical Impression Primary Impression: Chest pain Qualifiers: Chest pain type: unspecified Qualified Code: R07.9 - Chest pain, unspecified Secondary Impressions: Elevated lipase Condition STABLE Referrals Tawny Wilson MD (Family) ED Critical Care Critical Care No at [id number]
[2017-01-04 14:17] LABS: HEMOGLOBIN 11.8 g/dL (14.1-18.0); LYMPH # 2.3 K/mm3 (0.7-4.5); LYMPH % 28.1 % (10-50)
[2017-01-04 16:27] VITALS: BP 134/61
--- OUTSIDE RECORDS SUMMARY | 2017-01-04 16:27 | External Medical Summary Rpt | CCD ---
Author Author , THELMA RENEE Address Unknown Phone [email or web address] Purpose Continuity of Care Document - 10-29-2016 [...] Order Detail nces retati t Range on Cardiac enzymes (01-04-2017 13:40) Serum 01-04-2 = 1.7 0-4.0 complet or 017 U/L ed plasma 13:40 creatin e kinase MB (CK-M Serum = 0.8 0.0-3.6 complet or 017 ng/mL ed plasma 13:40 creatin e kinase MB measu Serum = 46 39-308 complet or 017 U/L ed plasma 13:40 creatin e kinase measure m Serum = 0.05 0.00-0. complet or 017 ng/mL 06 ed plasma 13:40 troponi n i.cardi ac measu Comprehensive metabolic panel (01-04-2017 13:40) Serum 01-04-2 = 1.0 1.1-1.8 complet or 017 ed plasma 13:40 albumin /globul in mass ra Serum = 3.3 3.4-5.0 complet or 017 gm/dL ed plasma 13:40 albumin measure ment (mas Serum 2 = 90 46-116 complet or 017 U/L ed plasma 13:40 alkalin e phospha tase doyle Serum 2 = 0.5 0.2-1.0 complet or 017 mg/dL ed plasma 13:40 total bilirub in measure m Serum 2 = 13 7-18 complet or 017 mg/dL ed plasma 13:40 urea nitroge n measure men Serum 2 = 8.6 8.5-10. complet or 017 mg/dL 1 ed plasma 13:40 calcium measure ment (mas Serum = 100 98-107 complet or 017 mmoL/L ed plasma 13:40 chlorid e measure ment (mo Carbon = 28 21.0-32 complet dioxide 017 mmoL/L .0 ed 13:40 measure ment Serum 2 = 1.0 0.70-1. complet or 017 mg/dL 30 ed plasma 13:40 creatin ine measure ment ( Estimat = 62 50-200 complet ion of 017 ML/MIN ed creatin 13:40 ine renal clearan ce Estimat = 72 >60 complet ed 017 ML/MIN ed glomeru 13:40 lar filtrat ion rate (GF Comment: REFERENCE RANGE: >60 ML/MIN/1.73 SQUARE METERS Comment: If this patient is -Swiss, then multiply the Comment: result by 1.210. Serum 2 = 3.3 1.3-3.2 complet globuli 017 gm/dL ed n 13:40 measure ment (mass/v olume) Serum = 368 74-106 complet or 017 mg/dL ed plasma 13:40 glucose measure ment (mas Serum = 3.4 3.5-5.1 complet potassi 017 mmoL/L ed um 13:40 measure ment Serum = 136 136-145 complet sodium 017 mmoL/L ed measure 13:40 ment Serum = 13 15-37 complet or 017 U/L ed plasma 13:40 asparta te aminotr ansfera ALT = 17 12-78 complet (SGPT) 017 U/L ed ser/rachel 13:40 s Protein = 6.6 6.4-8.2 complet total 017 gm/dL ed ser/rachel 13:40 s CBC w auto diff (01-04-2017 13:40) Automat = 0.0 0-0.2 complet ed 017 K/MM3 ed blood 13:40 basophi l count (count/ vo Baso % = 0.4 % 0.1-2.0 complet 017 ed 13:40 Automat = 0.3 0.0-0.4 complet ed 017 K/mm3 ed blood 13:40 eosinop hil count Automat = 3.2 % 0.1-12. complet ed 017 0 ed blood 13:40 eosinop hils/10 0 leukocy t Blood = 5.3 1.3-8.0 complet granulo 017 K/mm3 ed cytes 13:40 automat ed count (numb Granulo = 63.2 37.0-80 complet cyte 017 % .0 ed percent 13:40 age Blood = 36.4 42.0-52 complet hematoc 017 % .0 ed rit 13:40 (volume fractio n) Blood = 11.8 14.1-18 complet hemoglo 017 g/dL .0 ed bin 13:40 measure ment (mass/v olum Absolut = 2.3 0.7-4.5 complet e 017 K/mm3 ed lymphoc 13:40 yte count Lymphoc = 28.1 10-50 complet yte 017 % ed count, 13:40 blood, automat ed Mean = 26.2 27-31.2 complet corpusc 017 pg ed ular 13:40 hemoglo bin (MCH) determ Automat = 32.5 31.8-35 complet ed 017 g/dl .4 ed erythro 13:40 cyte mean corpusc ular h Automat = 80.8 82.2-97 complet ed 017 fl .8 ed erythro 13:40 cyte mean corpusc ular v Absolut = 0.4 0.1-1.0 complet e 017 K/mm3 ed monocyt 13:40 e count [place] % = 5.0 % 1.7-9.3 complet 017 ed 13:40 Automat = 7.4 7.4-10. complet ed 017 fl 4 ed blood 13:40 platele t mean volume doyle Blood = 312 142-424 complet platele 017 K/mm3 ed t count 13:40 Red = 4.50 4.6-6.2 complet blood 017 M/mm3 ed cell 13:40 count Automat = 14.5 11.5-17 complet ed 017 % .5 ed erythro 13:40 cyte distrib ution width Blood = 8.4 4.8-10. complet leukocy 017 K/MM3 8 ed ramos 13:40 count (number /volume ) Lipase measurement (01-04-2017 13:40) Lipase = 584 73-393 complet measure 017 U/L ed ment 13:40 Brain natriuretic peptide (01-04-2017 13:40) Brain = 71 0-100 complet natriur 017 pg/mL ed etic 13:40 peptide Amylase ser/plas (01-03-2017 08:40) Amylase = 50 25-115 complet 017 U/L ed ser/rachel 08:40 s Comprehensive metabolic panel (01-03-2017 08:40) Serum 01-03-2 = 1.0 1.1-1.8 complet or 017 ed plasma 08:40 albumin /globul in mass ra Serum 01-03-2 = 3.1 3.4-5.0 complet or 017 gm/dL ed plasma 08:40 albumin measure ment (mas Serum 01-03- = 86 46-116 complet or 017 U/L ed plasma 08:40 alkalin e phospha tase doyle Serum = 0.7 0.2-1.0 complet or 017 mg/dL ed plasma 08:40 total bilirub in measure m Serum 01-03-2 = 15 7-18 complet or 017 mg/dL ed plasma 08:40 urea nitroge n measure men Serum 01-03-2 = 8.6 8.5-10. complet or 017 mg/dL [...] SQUARE METERS Comment: If this patient is -Swiss, then multiply the Comment: result by 1.210. [...] metabolic panel (01-01-2017 05:50) Serum 01-01- = 19 7-18 complet or 017 mg/dL ed plasma 05:50 urea nitroge n measure men Serum = 9.0 8.5-10. complet or 017 mg/dL 1 ed plasma 05:50 calcium measure ment (mas Serum 2 = 101 98-107 complet or 017 mmoL/L ed plasma 05:50 chlorid e measure ment (mo Carbon = 26 21.0-32 complet dioxide 017 mmoL/L .0 ed 05:50 measure ment Serum 2 = 0.9 0.70-1. complet or 017 mg/dL 30 ed plasma 05:50 creatin ine measure ment ( Estimat 2 = 74 50-200 complet ion of 017 ML/MIN ed creatin 05:50 ine renal clearan ce Estimat = 81 >60 complet ed 017 ML/MIN ed glomeru 05:50 lar filtrat ion rate (GF Comment: REFERENCE RANGE: >60 ML/MIN/1.73 SQUARE METERS Comment: If this patient is -Swiss, then multiply the Comment: result by 1.210. Serum = 323 74-106 complet or 017 mg/dL ed plasma 05:50 glucose measure ment (mas Serum 2 = 3.1 3.5-5.1 complet potassi 017 mmoL/L ed um 05:50 measure ment Serum = 137 136-145 complet sodium 017 mmoL/L ed measure 05:50 ment Activated clotting time (12-31-2016 14:12) Activat 2 = 282 74-125 complet ed 017 SEC ed clottin 14:12 g time Activated clotting time (12-31-2016 13:59) Activat 2 = 335 74-125 complet ed 017 SEC ed clottin 13:59 g time CBC w auto diff (12-31-2016 07:15) Automat 2 = 0.1 0-0.2 complet ed 017 K/MM3 ed blood 07:15 basophi l count (count/ vo Baso % = 0.7 % 0.1-2.0 complet 017 ed 07:15 Automat 2 = 0.3 0.0-0.4 complet ed 017 K/mm3 ed blood 07:15 eosinop hil count Automat = 3.4 % 0.1-12. complet ed 017 0 ed blood 07:15 eosinop hils/10 0 leukocy t Blood = 5.1 1.3-8.0 complet granulo 017 K/mm3 ed cytes 07:15 automat ed count (numb Granulo = 66.0 37.0-80 complet cyte 017 % .0 ed percent 07:15 age Blood = 34.9 42.0-52 complet hematoc 017 % .0 ed rit 07:15 (volume fractio n) Blood = 11.2 14.1-18 complet hemoglo 017 g/dL .0 ed bin 07:15 measure ment (mass/v olum Absolut = 1.8 0.7-4.5 complet e 017 K/mm3 ed lymphoc 07:15 yte count Lymphoc = 23.5 10-50 complet yte 017 % ed count, 07:15 blood, automat ed Mean = 25.7 27-31.2 complet corpusc 017 pg ed ular 07:15 hemoglo bin (MCH) determ Automat = 32.0 31.8-35 complet ed 017 g/dl .4 ed erythro 07:15 cyte mean corpusc ular h Automat = 80.1 82.2-97 complet ed 017 fl .8 ed erythro 07:15 cyte mean corpusc ular v Absolut = 0.5 0.1-1.0 complet e 017 K/mm3 ed monocyt 07:15 e count [place] % = 6.4 % 1.7-9.3 complet 017 ed 07:15 Automat = 7.1 7.4-10. complet ed 017 fl 4 ed blood 07:15 platele t mean volume doyle Blood = 298 142-424 complet platele 017 K/mm3 ed t count 07:15 Red = 4.36 4.6-6.2 complet blood 017 M/mm3 ed cell 07:15 count Automat = 14.5 11.5-17 complet ed 017 % .5 ed erythro 07:15 cyte distrib ution width Blood 11-14-2 = 7.8 4.8-10. complet leukocy 017 K/MM3 8 ed ramos 07:15 count (number /volume ) Brain natriuretic peptide (12-31-2016 07:15) Brain 12-31-2 = 207 0-100 complet natriur 017 pg/mL ed etic 07:15 peptide Comprehensive metabolic panel (12-31-2016 07:15) Serum 12-31-2 = 1.0 1.1-1.8 complet or 017 ed plasma 07:15 albumin /globul in mass ra Serum 12-31-2 = 3.1 3.4-5.0 complet or 017 gm/dL ed plasma 07:15 albumin measure ment (mas Serum 2 = 81 46-116 complet or 017 U/L ed plasma 07:15 alkalin e phospha tase doyle Serum 2 = 0.7 0.2-1.0 complet or 017 mg/dL ed plasma 07:15 total bilirub in measure m Serum = 11 7-18 complet or 017 mg/dL ed plasma 07:15 urea nitroge n measure men Serum 12-31-2 = 8.7 8.5-10. complet or 017 mg/dL 1 ed plasma 07:15 calcium measure ment (mas Serum 2 = 103 98-107 complet or 017 mmoL/L ed plasma 07:15 chlorid e measure ment (mo Carbon = 33 21.0-32 complet dioxide 017 mmoL/L .0 ed 07:15 measure ment Serum 12-31-2 = 0.9 0.70-1. complet or 017 mg/dL 30 ed plasma 07:15 creatin ine measure ment ( Estimat = 72 50-200 complet ion of 017 ML/MIN ed creatin 07:15 ine renal clearan ce Estimat = 81 >60 complet ed 017 ML/MIN ed glomeru 07:15 lar filtrat ion rate (GF Comment: REFERENCE RANGE: >60 ML/MIN/1.73 SQUARE METERS Comment: If this patient is -Swiss, then multiply the Comment: result by 1.210. Serum 12-31-2 = 3.2 1.3-3.2 complet globuli 017 gm/dL ed n 07:15 measure ment (mass/v olume) Serum 11-14-2 = 181 74-106 complet or 017 mg/dL ed plasma 07:15 glucose measure ment (mas Serum 12-31-2 = 2.6 3.5-5.1 complet potassi 017 mmoL/L ed um 07:15 measure ment Comment: CRITICAL RESULTS Comment: RESULTS CALLED TO: KASSI 12/31/16 0741 Karel Roe Comment: Mel Serum 12-31-2 = 141 136-145 complet sodium 017 mmoL/L ed measure 07:15 ment Serum 12-31-2 = 12 15-37 complet or 017 U/L ed plasma 07:15 asparta te aminotr ansfera ALT = 13 12-78 complet (SGPT) 017 U/L ed ser/rachel 07:15 s Protein = 6.3 6.4-8.2 complet total 017 gm/dL ed ser/rachel 07:15 s Total prostate specific antigen (PSA) me (12-31-2016 07:15) Total 12-31-2 < 0.1 0.0-4.0 complet prostat 017 ng/mL ed e 07:15 specifi c antigen (PSA) me Cardiac enzymes (12-30-2016 23:00) Serum 12-30- = 4.0 0-4.0 complet or 017 U/L ed plasma 23:00 creatin e kinase MB (CK-M Serum = 3.0 0.0-3.6 complet or 017 ng/mL ed plasma 23:00 creatin e kinase MB measu Serum = 75 39-308 complet or 017 U/L ed plasma 23:00 creatin e kinase measure m Serum = 0.14 0.00-0. complet or 017 ng/mL [...] Renal failure Acute neurological disease Atrial fib. Cardiac enzymes (12-30-2016 16:55) Serum = 3.1 0-4.0 complet or 017 U/L ed plasma 16:55 creatin e kinase MB (CK-M Serum = 2.5 0.0-3.6 complet or 017 ng/mL ed plasma 16:55 creatin e kinase MB measu Serum = 81 39-308 complet or 017 U/L ed plasma 16:55 creatin e kinase measure m Serum = 0.09 0.00-0. complet or 017 ng/mL [...] Renal failure Acute neurological disease Atrial fib. Urinalysis with microscopy (12-30-2016 14:55) Urine CLEAR CLEAR complet appeara 017 CLEAR L ed nce 14:55 determi nation Bacteri NONE O complet a 017 NONE L ed detecti 14:55 on in urine sedimen t by Urine NEGATIV NEG complet total 017 E ed bilirub 14:55 NEGATIV in E L detecti on by test Urine NEGATIV NEG complet blood 017 E ed detecti 14:55 NEGATIV on E L Urine YELLOW YELLOW complet color 017 YELLOW ed 14:55 L Glucose 3 + NEG complet ur 017 ed test 14:55 strip Urine TRACE NEG complet ketones 017 TRACE L ed 14:55 mg/dL detecti on by automat ed ramos Mucus NEGATIV NEG complet detecti 017 E ed on in 14:55 NEGATIV urine E L sedimen t by lig Urine NEGATIV NEG complet nitrite 017 E ed 14:55 NEGATIV detecti E L on by test strip Urine = 6.0 5.0-8.5 complet pH 017 ed 14:55 Urine = NEG complet protein 017 NEGATIV ed 14:55 E mg/dL measure ment by automat ed t Erythro NONE 0 complet cytes 017 NONE L ed detecti 14:55 rbc/hpf on in urine sedimen t Urine = 1.020 1.005-1 complet specifi 017 .030 ed c 14:55 gravity measure ment [place] 5-10 OCC complet s 017 5-10 L ed epithel 14:55 #/hpf ial cells detecti on in u Urine 0.2 0.2 NEG complet urobili 017 L ed nogen 14:55 E.U./dL detecti on by test str Urine = NONE O complet leukocy 017 wbc/hpf ed ramos 14:55 count (number /volume ) Urinalysis dipstick W Reflex Microscopic panel in [...] 017 K/mm3 ed monocyt 13:55 e count [place] % = 4.6 % 1.7-9.3 complet 017 [...] .0 ed rit 13:55 (volume fractio n) Amylase ser/plas (12-30-2016 13:55) Amylase = 60 25-115 complet 017 U/L ed ser/rachel 13:55 s Lipase measurement (12-30-2016 13:55) Lipase = 165 73-393 complet measure 017 U/L ed ment 13:55 Cardiac enzymes (12-30-2016 13:55) Serum = 2.9 0-4.0 complet or 017 U/L ed plasma 13:55 creatin e kinase MB (CK-M Serum = 2.5 0.0-3.6 complet or 017 ng/mL ed plasma 13:55 creatin e kinase MB measu Serum = 85 39-308 complet or 017 U/L ed plasma 13:55 creatin e kinase measure m Serum < 0.02 0.00-0. complet or 017 ng/mL 06 ed plasma 13:55 troponi n i.cardi ac measu Comprehensive metabolic panel (12-30-2016 13:55) Serum = 1.0 1.1-1.8 complet or 017 ed plasma 13:55 albumin /globul in mass ra Serum = 3.7 1.3-3.2 complet globuli 017 gm/dL ed n 13:55 measure ment (mass/v olume) Serum = 3.8 3.4-5.0 complet or 017 gm/dL ed plasma 13:55 albumin measure ment (mas Serum = 101 46-116 complet or 017 U/L ed plasma 13:55 alkalin e phospha tase doyle Serum = 0.5 0.2-1.0 complet or 017 mg/dL ed plasma 13:55 total bilirub in measure m Serum = 12 7-18 complet or 017 mg/dL ed plasma 13:55 urea nitroge n measure men Serum = 8.7 8.5-10. complet or 017 mg/dL 1 ed plasma 13:55 calcium measure ment (mas Serum = 98 98-107 complet or 017 mmoL/L ed plasma 13:55 chlorid e measure ment (mo Carbon = 28 21.0-32 complet dioxide 017 mmoL/L .0 ed 13:55 measure ment Serum = 1.0 0.70-1. complet or 017 mg/dL 30 ed plasma 13:55 creatin ine measure ment ( Estimat = 76 50-200 complet ion of 017 ML/MIN ed creatin 13:55 ine renal clearan ce Estimat = 72 >60 complet ed 017 ML/MIN ed glomeru 13:55 lar filtrat ion rate (GF Comment: REFERENCE RANGE: >60 ML/MIN/1.73 SQUARE METERS Comment: If this patient is -Swiss, then multiply the Comment: result by 1.210. Serum = 295 74-106 complet or 017 mg/dL ed plasma 13:55 glucose measure ment ([facility] Serum = 2.7 3.5-5.1 complet potassi 017 mmoL/L ed um 13:55 measure ment Comment: CRITICAL RESULTS Comment: RESULTS CALLED TO: DUARTE 12/30/16 1506 Aurelia Dominguez Serum = 137 136-145 complet sodium 017 mmoL/L ed measure 13:55 ment Serum = 12 15-37 complet or 017 U/L ed plasma 13:55 asparta te aminotr ansfera ALT = 13 12-78 complet (SGPT) 017 U/L ed ser/rachel 13:55 s Protein = 7.5 6.4-8.2 complet total 017 gm/dL ed ser/rachel 13:55 s Magnesium measurement (12-30-2016 13:55) Magnesi = 1.9 1.4-2.2 complet um 017 mg/dL ed measure 13:55 ment Digoxin level (12-30-2016 13:55) Digoxin = 0.56 1.15-2. complet level 017 ng/mL 56 ed 13:55
--- OUTSIDE RECORDS SUMMARY | 2017-01-04 16:27 | External Medical Summary Rpt | CCD ---
Author Author , THELMA RENEE Address Unknown Phone [email or web address] Purpose Continuity of Care Document - 10-29-2016 [...] SQUARE METERS Comment: If this patient is -[place], then multiply the Comment: result by 1.210. [...] 017 K/mm3 ed monocyt 13:40 e count [place] % = 5.0 % 1.7-9.3 complet 017 [...] SQUARE METERS Comment: If this patient is -[place], then multiply the Comment: result by 1.210. [...] SQUARE METERS Comment: If this patient is -[place], then multiply the Comment: result by 1.210. [...] 017 K/mm3 ed monocyt 07:15 e count [place] % = 6.4 % 1.7-9.3 complet 017 [...] SQUARE METERS Comment: If this patient is -[place], then multiply the Comment: result by 1.210. [...] 017 K/mm3 ed monocyt 13:55 e count [place] % = 4.6 % 1.7-9.3 complet 017 [...] SQUARE METERS Comment: If this patient is -[place], then multiply the Comment: result by 1.210. Serum = 295 74-106 complet or 017 mg/dL ed plasma 13:55 glucose measure ment ([facility] Serum = 2.7 3.5-5.1 complet potassi 017 [...]
--- OUTSIDE RECORDS SUMMARY | 2017-01-04 16:27 | External Medical Summary Rpt | CCD ---
Author Author , THELMA RENEE Address Unknown Phone [email or web address] Immunization Name Date Rout CVX Reac Dose [...]
--- OUTSIDE RECORDS SUMMARY | 2017-01-04 16:27 | External Medical Summary Rpt | CCD ---
Author Author , THELMA RENEE Address Unknown Phone [email or web address] Immunization Name Date Rout CVX Reac Dose [...]
--- OUTSIDE RECORDS SUMMARY | 2017-01-04 16:28 | External Medical Summary Rpt ---
Author Author ANDREWBRENNAN Production, [facility] [employer] Organization [facility] [employer] Address Unknown Phone Unavailable Results Natriutietic peptide B [Mass/volume] in Serum or Plasma Observa Value Referen Units Interpr Notes Date tion ce etation Range Natriutie 0 - 100 pg/mL Normal No Jan 04 tic inform2016 1:40 peptide B on in PM source [Mass/vol data ume] in Serum or Plasma Lipase [Enzymatic activity/volume] in Serum or Plasma Observa Value Referen Units Interpr Notes Date tion ce etation Range Lipase 73 - 393 U/L High No Jan 04 [Enzymati inform2016 1:40 c on in PM activity/ source volume] data in Serum or Plasma CBC W Auto Differential panel in Blood Observa Value Referen Units Interpr Notes Date tion ce etation Range Basophils 0 - 0.2 K/MM3 Normal No Jan 04 inform2016 1:40 [#/volume on in PM ] in source Blood by data Automated count Basophils 0.1 - 2.0 % Normal No Jan 04 / informati 2016 1:40 leukocyte on in PM s in source Blood by data Automated count Eosinophi 0.0 - 0.4 K/mm3 Normal No Jan 04 ls informati 2016 1:40 [#/volume on in PM ] in source Blood by data Automated count Eosinophi 0.1 - % Normal No Jan 04 ls/100 12.0 informati 2016 1:40 leukocyte on in PM s in source Blood by data Automated count Granulocy 1.3 - 8.0 K/mm3 Normal No Jan 04 ramos informati 2016 1:40 [#/volume on in PM ] in source Blood by data Automated count Granulocy 37.0 - % Normal No Jan 04 ramos/100 80.0 informati 2016 1:40 leukocyte on in PM s in source Blood by data Automated count Hematocri 42.0 - % Low No Jan 04 t [Volume 52.0 informati 2016 1:40 on in PM Fraction] source of Blood data Hemoglobi 14.1 - g/dL Low No Jan 04 n 18.0 informati 2017 1:40 [Mass/vol on in PM ume] in source Blood data Lymphocyt 0.7 - 4.5 K/mm3 Normal No Jan 04 es informati 2017 1:40 [#/volume on in PM ] in source Unspecifi data ed specimen by Automated count Lymphocyt 10 - 50 % Normal No Jan 04 es informati 2016 1:40 [#/volume on in PM ] in source Unspecifi data ed specimen by Automated count Erythrocy 27 - 31.2 pg Low No Jan 04 te mean informati 2016 1:40 corpuscul on in PM ar source hemoglobi data n [Entitic mass] Erythrocy 31.8 - g/dl Normal Jan 04 te mean 35.4 informati 2017 1:40 corpuscul on in PM ar source hemoglobi data n concentra tion [Mass/vol ume] by Automated count Erythrocy 82.2 - fl Low Jan 04 te mean 97.8 informati 2016 1:40 corpuscul on in PM ar volume source [Entitic data volume] by Automated count Monocytes 0.1 - 1.0 K/mm3 Normal No Jan 04 informati 2017 1:40 [#/volume on in PM ] in source Blood by data Automated count Monocytes 1.7 - 9.3 % Normal No Jan 04 /100 informati 2017 1:40 leukocyte on in PM s in source Blood by data Automated count Platelet 7.4 - fl Normal No Jan 04 mean 10.4 informati 2017 1:40 volume on in PM [Entitic source volume] data in Blood by Automated count Platelets 142 - 424 K/mm3 Normal No Jan 04 informati 2017 1:40 [#/volume on in PM ] in source Blood data Erythrocy 4.6 - 6.2 M/mm3 Low No Jan 04 ramos informati 2017 1:40 [#/volume on in PM ] in source Amniotic data fluid Erythrocy 11.5 - % Normal No Jan 04 te 17.5 informati 2017 1:40 distribut on in PM ion width source [Entitic data volume] by Automated count Leukocyte 4.8 - K/MM3 Normal No Jan 04 s 10.8 informati 2016 1:40 [#/volume on in PM ] in source Blood data Cardiac enzymes Observa Value Referen Units Interpr Notes Date tion ce etation Range Creatine 0 - 4.0 U/L Normal No Jan 04 kinase.MB informati 2016 1:40 /Creatine on in PM source kinase.to data jossy [Ratio] in Serum or Plasma Creatine 0.0 - 3.6 ng/mL No Jan 04 kinase.MB informati informati 2016 1:40 on in on in PM [Mass/vol source source ume] in data data Serum or Plasma Creatine 39 - 308 U/L Normal No Jan 04 kinase informati 2016 1:40 [Enzymati on in PM c source activity/ data volume] in Serum or Plasma Troponin 0.00 - ng/mL Normal No Jan 04 I.cardiac 0.06 informati 2016 1:40 on in PM [Mass/vol source ume] in data Serum or Plasma Comprehensive metabolic 2000 panel in Serum or Plasma Observa Value Referen Units Interpr Notes Date tion ce etation Range Albumin/G 1.1 - 1.8 No Low No Jan 04 lobulin informati informati 2016 1:40 [Mass on in on in PM ratio] in source source Serum or data data Plasma Albumin 3.4 - 5.0 gm/dL Low No Jan 04 [Mass/vol informati 2017 1:40 ume] in on in PM Serum or source Plasma data Alkaline 46 - 116 U/L Normal No Jan 04 phosphata informati 2016 1:40 se on in PM [Enzymati source c data activity/ volume] in Serum or Plasma Bilirubin 0.2 - 1.0 mg/dL Normal No Jan 04 .total informati 2016 1:40 [Mass/vol on in PM ume] in source Serum or data Plasma Urea 7 - 18 mg/dL Normal No Jan 04 nitrogen informati 2016 1:40 [Mass/vol on in PM ume] in source Serum or data Plasma Calcium 8.5 - mg/dL Normal No Jan 04 [Mass/vol 10.1 informati 2016 1:40 ume] in on in PM Serum or source Plasma data Chloride 98 - 107 mmoL/L Normal No Jan 04 [Moles/vo informati 2016 1:40 lume] in on in PM Serum or source Plasma data Carbon 21.0 - mmoL/L Normal No Jan 04 dioxide, 32.0 informati 2016 1:40 total on in PM [Moles/vo source lume] in data Serum or Plasma Creatinin 0.70 - mg/dL Normal No Nov 18 e 1.30 informati 2017 1:40 [Mass/vol on in PM ume] in source Serum or data Plasma Creatinin 50 - 200 ML/MIN Normal No Jan 04 e renal informati 2016 1:40 clearance on in PM source predicted data by Cockcroft -Gault formula Estimated >60 ML/MIN No REFERENCE Jan 04 informati RANGE: 2017 1:40 glomerula on in >60 PM r source ML/MIN/1. filtratio data 73 SQUARE n rate METERSIf (GF this patient is -A merican, then multiply theresult by 1.210. Globulin 1.3 - 3.2 gm/dL High No Jan 04 [Mass/vol informati 2016 1:40 ume] in on in PM Serum source data Glucose 74 - 106 mg/dL High No Jan 04 [Mass/vol informati 2016 1:40 ume] in on in PM Serum or source Plasma data Potassium 3.5 - 5.1 mmoL/L Low No Jan 04 inform2016 1:40 [Moles/vo on in PM lume] in source Serum or data Plasma Sodium 136 - 145 mmoL/L Normal No Jan 04 [Moles/vo informati 2016 1:40 lume] in on in PM Serum or source Plasma data Aspartate 15 - 37 U/L Low No Jan 04 informati 2016 1:40 aminotran on in PM sferase source [Enzymati data c activity/ volume] in Serum or Plasma Alanine 12 - 78 U/L Normal No Jan 04 aminotran informati 2016 1:40 sferase on in PM [Enzymati source c data activity/ volume] in Serum or Plasma Protein 6.4 - 8.2 gm/dL Normal No Jan 04 [Mass/vol informati 2016 1:40 ume] in on in PM Serum or source Plasma data Amylase [Enzymatic activity/volume] in Serum or Plasma [...] Normal No Jan 03 e 1.30 informati 2016 8:40 [Mass/vol on in AM [...] Protein 6.4 - 8.2 gm/dL Low No Jan 03 [Mass/vol informati [...] 74 - 106 mg/dL High No Dec 15 [Mass/vol informati 2017 5:50 ume] in on in AM Serum or source Plasma data Potassium 3.5 - 5.1 mmoL/L Low No Dec 15 informati 2016 5:50 [Moles/vo on in AM lume] in source Serum or data Plasma Sodium 136 - 145 mmoL/L Normal No Dec 15 [Moles/vo informati 2017 5:50 lume] in on in AM Serum [...] Natriutie 0 - 100 pg/mL High No Dec 31 tic informati 2017 7:15 peptide B on in AM source [Mass/vol data ume] in Serum or Plasma Comprehensive metabolic 2000 panel in Serum or Plasma Observa Value Referen Units Interpr Notes Date tion ce etation Range Albumin/G 1.1 - 1.8 No Low No Dec 14 lobulin informati informati 2017 7:15 [Mass on in on in AM ratio] in source source Serum or data data Plasma Albumin 3.4 - 5.0 gm/dL Low No Dec 14 [Mass/vol informati 2017 7:15 ume] in on in AM Serum or source Plasma data Alkaline 46 - 116 U/L Normal No Dec 31 phosphata informati 2016 7:15 se on in AM [Enzymati source c data activity/ volume] in Serum or Plasma Bilirubin 0.2 - 1.0 mg/dL Normal No Dec 14 .total informati 2017 7:15 [Mass/vol on in AM ume] in source Serum or data Plasma Urea 7 - 18 mg/dL Normal No Dec 14 nitrogen informati 2016 7:15 [Mass/vol on in AM ume] in source Serum or data Plasma Calcium 8.5 - mg/dL Normal No Dec 31 [Mass/vol 10.1 informati 2016 7:15 ume] in on in AM Serum or source Plasma data Chloride 98 - 107 mmoL/L Normal No Dec 14 [Moles/vo informati 2016 7:15 lume] in on in AM Serum or source Plasma data Carbon 21.0 - mmoL/L High No Dec 31 dioxide, 32.0 informati 2016 7:15 total on in AM [Moles/vo source lume] in data Serum or Plasma Creatinin 0.70 - mg/dL Normal No Dec 31 e 1.30 informati 2016 7:15 [Mass/vol on in AM ume] in source Serum or data Plasma Creatinin 50 - 200 ML/MIN Normal No Dec 31 e renal informati 2016 7:15 clearance on in AM source predicted data by Cockcroft -Gault formula Estimated >60 ML/MIN No REFERENCE Dec 31 informati RANGE: 2017 7:15 glomerula on in >60 AM r source ML/MIN/1. filtratio data 73 SQUARE n rate METERSIf (GF this patient is -A merican, then multiply theresult by 1.210. Globulin 1.3 - 3.2 gm/dL Normal No Dec 31 [Mass/vol informati 2016 7:15 [...] CALLED TO: KASSI 12/31/16 0741 Lila Roe e Sodium 136 - 145 mmoL/L Normal No Dec 14 [Moles/vo informati 2016 7:15 lume] in on in AM Serum or source Plasma data Aspartate 15 - 37 U/L Low No Dec 31 informati 2017 7:15 aminotran on in AM sferase source [Enzymati data c activity/ volume] in Serum or Plasma Alanine 12 - 78 U/L Normal No Dec 14 aminotran informati 2016 7:15 sferase on in AM [Enzymati source c data activity/ volume] in Serum or Plasma Protein 6.4 - 8.2 gm/dL Low No Dec 14 [Mass/vol informati 2016 7:15 ume] in on in AM Serum or source Plasma data CBC W Auto Differential panel in Blood Observa Value Referen Units Interpr Notes Date tion ce etation Range Basophils 0 - 0.2 K/MM3 Normal No Dec 14 informati 2016 7:15 [#/volume on in AM ] in source Blood by data Automated count Basophils 0.1 - 2.0 % Normal No Dec 14 /100 informati 2017 7:15 leukocyte on in AM s in source Blood by data Automated count Eosinophi 0.0 - 0.4 K/mm3 Normal No Dec 14 ls informati 2016 7:15 [#/volume on in AM ] in source Blood by data Automated count Eosinophi 0.1 - % Normal No Dec 31 ls/100 12.0 informati 2016 7:15 leukocyte on in AM s in source Blood by data Automated count Granulocy 1.3 - 8.0 K/mm3 Normal No Dec 14 ramos informati 2017 7:15 [#/volume on in AM ] in source Blood by data Automated count Granulocy 37.0 - % Normal No Dec 14 ramos/100 80.0 informati 2016 7:15 leukocyte on [...] 0.7 - 4.5 K/mm3 Normal No Dec 31 es informati 2016 [...] Erythrocy 82.2 - fl Low No Dec 14 te mean 97.8 informati 2016 7:15 corpuscul on in AM ar volume source [Entitic data volume] by Automated count Monocytes 0.1 - 1.0 K/mm3 Normal No Dec 14 informati 2016 7:15 [#/volume on in AM ] in source Blood by data Automated count Monocytes 1.7 - 9.3 % Normal No Dec 14 /100 informati 2016 7:15 leukocyte on in AM s in source Blood by data Automated count Platelet 7.4 - fl Low No Dec 31 mean 10.4 informati 2016 7:15 volume on in AM [Entitic source volume] data in Blood by Automated count Platelets 142 - 424 K/mm3 Normal No Dec 31 informati 2016 [...] Automated count Leukocyte 4.8 - K/MM3 No Dec 31 s 10.8 informati informati 2016 7:15 [#/volume on in on in AM ] in source source Blood data data Cardiac enzymes Observa Value Referen Units Interpr Notes Date tion ce etation Range Creatine 0 - 4.0 U/L Normal No Dec 30 kinase.MB inform2016 /Creatine on in 11:00 PM source kinase.to [...] - Dec 30 I.cardiac 0.06 0.49 IS 2017 AN 11:00 PM [Mass/vol INDETERMI ume] in [...] U/L Normal No Dec 30 kinase informati 2017 4:55 [Enzymati on in PM c source activity/ data volume] in Serum or Plasma Troponin 0.00 - ng/mL High 0. - Dec 30 I.cardiac 0.06 0.49 IS 2017 4:55 AN PM [Mass/vol INDETERMI ume] in [...] High No Dec 30 [Mass/vol informati informati 2017 2:55 ume] in on in on in [...] No No Dec 30 [Mass/vol informati informati 2017 2:55 ume] in on in on in PM Urine by source source Automated data data test strip Erythro NONE 0 rbc/hpf No No Dec 30 cytes informa informa 2016 [Presen tion in tion in 2:55 PM ce] in source source Urine data data sedimen t by Light microsc opy Specific 1.005 - No Normal No Dec 13 gravity 1.030 informati informati 2017 2:55 of [...] No No Dec 30 s informati informati 2017 2:55 [#/volume on in on in PM [...] NEG mg/dL Abnorma No Dec 30 l a 2016 [Presen tion in 2:55 PM ce] [...] E.U./dL No No Dec 30 nogen informa inform2016 [Presen tion in tion in 2:55 PM [...] Interpr Notes Date tion ce etation Range Magnesium 1.4 - 2.2 mg/dL Normal No Dec 302016 1:55 [Moles/vo on in PM lume] in [...] 393 U/L Normal No Dec 30 [Enzymati inform2016 1:55 c on in PM activity/ source volume] data in Serum or Plasma CBC W Auto Differential panel in Blood Observa Value Referen Units Interpr Notes Date tion ce etation Range Basophils 0 - 0.2 K/MM3 Normal No Dec 302016 1:55 [#/volume on in PM ] in source Blood by data Automated count Basophils 0.1 - 2.0 % Normal No Dec 30 / informati 2016 1:55 leukocyte on in PM s in source Blood by data Automated count Eosinophi 0.0 - 0.4 K/mm3 Normal No Dec 30 ls inform2016 1:55 [#/volume on in PM ] in source Blood by data Automated count Eosinophi 0.1 - % Normal No Dec 30 ls/100 12.0 inform2016 1:55 leukocyte on in PM s in source Blood by data Automated count Granulocy 1.3 - 8.0 K/mm3 Normal No Dec 30 ramos informati 2016 1:55 [#/volume on in PM ] in source Blood by data Automated count Granulocy 37.0 - % Normal No Dec 30 ramos/100 80.0 inform 2017 1:55 leukocyte on in PM s in source Blood by data Automated count Hematocri 42.0 - % Low Dec 30 t [Volume 52.0 ati 2016 1:55 on in PM Fraction] source of Blood data Hemoglobi 14.1 - g/dL Low Dec 30 n 18.0 informati 2016 1:55 [Mass/vol on in PM ume] in source Blood data Lymphocyt 0.7 - 4.5 K/mm3 High No Dec 30 es informati 2016 1:55 [#/volume on in PM ] in source Unspecifi data ed specimen by Automated count Lymphocyt 10 - 50 % Normal Dec 30 es 2016 1:55 [#/volume on in PM ] in source Unspecifi data ed specimen by Automated count Erythrocy 27 - 31.2 pg Low No Dec 30 te mean inform2016 1:55 corpuscul on in PM ar source hemoglobi data n [Entitic mass] Erythrocy 31.8 - g/dl Low Dec 30 te mean 35.4 informati 2016 1:55 corpuscul on in PM ar source hemoglobi data n concentra tion [Mass/vol ume] by Automated count Erythrocy 82.2 - fl Low Dec 30 te mean 97.8 informati 2016 1:55 corpuscul on in PM ar volume source [Entitic data volume] by Automated count Monocytes 0.1 - 1.0 K/mm3 Normal No Dec 302016 1:55 [#/volume on [...] 424 K/mm3 No Dec 30 informati informati 2017 1:55 [#/volume on in on in PM ] in source source Blood data data Erythrocy 4.6 - 6.2 M/mm3 Normal No Dec 30 ramos informati 2016 1:55 [#/volume on in PM ] in source Amniotic data fluid Erythrocy 11.5 - % Normal No Dec 30 te 17.5 informati 2017 1:55 distribut on in PM ion width [...] Serum or Plasma RESU LTS CALLED TO: [facility] 10/29/16 1523 Huber,[place] n[place] Sodium 136 - 145 mmoL/L Normal [...]
--- OUTSIDE RECORDS SUMMARY | 2017-01-04 16:28 | External Medical Summary Rpt ---
[...] Serum or Plasma RESU LTS CALLED TO: [facility] 10/29/16 1523 Huber,[place] nda Sodium 136 - 145 mmoL/L Normal [...]
[2017-01-04 18:36] VITALS: BP 152/74
[2017-01-04 20:09] VITALS: BP 119/51
[2017-01-04 22:00] VITALS: BP 119/51
[2017-01-05] VITALS (7 sets, daily range): BP systolic 117–151; BP diastolic 56–83
[2017-01-05 06:17] LABS: LYMPH % 22.9 % (10-50)
--- NOTE | 2017-01-05 12:16 | PHARMACY CLINIC NOTE ---
Patient Demographics Patient Demographics Admission date: 01/04/17 Date: 01/05/17 Time: 1215 Allergies Coded Allergies: Penicillins (I-RASH 01/04/17) chlordiazepoxide (STOPPED KIDNEYS 01/04/17) clidinium (STOPPPED KIDNEYS 01/04/17) darifenacin (From ENABLEX) (STOPPED KIDNEYS 01/04/17) iodine (ANXIETY/RASH 01/04/17) oxycodone (VOMITTING/HICCUPS 01/04/17) HEIGHT- FT: 5 IN: 11.00 K.519 VTE General Information Labs: Laboratory Tests 01/05 01/04 0555 1340 Hematology Hgb (14.1 - 18.0 g/dL) 11.0 L 11.8 L Hct (42.0 - 52.0 %) 34.1 L 36.4 L Plt Count (142 - 424 K/mm3) 294 312 Disclaimer The following section includes nursing documentation that has been pulled in for pharmacy review. Patient's VTE score: 2 Patient's VTE Risk: VERY LOW RISK Clinical trial participant? No VTE prophylaxis NQF [id number] VTE prophylaxis ordered? Yes Type of prophylaxis/treatment: VALERIA at 1215
--- NOTE | 2017-01-05 14:14 | HISTORY AND PHYSICAL REPORT ---
History and Physical ([facility]) Date of admission: 01/04/17 Chief complaint: 81 year old patient of Dr. Tracy who is a resident of [facility], with a history of CAD, presented to [facility] ER yesterday complaining of 6/10 intensity chest pain/heaviness. Patient had a left heart cath 5 days ago with placement of 2 bare metal stents by Dr. Horner at [facility]. Patient was given 2 SL NTG at the [facility] which alleviated his pain but his family was concerned he was having a heart attack and they wanted him to be brought to the ER for further evaluation. EKG was reviewed by ER physician and he consulted Dr. Horner who recommened admission for further evaluation of pain. Past Medical History: Medical History: CAD? Yes Angina: Yes MO: No Hypertension? Yes Hyperlipidemia? Yes CHF? No DVT? No PE? No COPD? Yes Asthma? No Anemia? No GERD? Yes Gastric ulcers? No GI Bleed? No Hernia? No Thyroid Problems? Yes Hypothyroidism? Yes CVA? No Seizures? No Diabetes? Yes Insulin Dependent: No Insulin Pump: No Home FSBS? Yes Renal Insuffiency? No UTI? Yes Stones? No BPH? No GB Disease: Yes Nephritic Syndrome? No Asplenia? No Hepatitis? No Sickle Cell Disease? No Arthritis? Yes Migraines? No Cataracts? No Glaucoma? No MRSA? No HIV? No TB? No Anxiety? No Depression? No Cancer? Yes Site: PROSTATE More? Yes Additional hx: DJD A FIB Surgical history: Previous Surgery?Y RT TOTAL HIP REPLACEMENT Prostate Appendix ARTIF URINARY SPHINCTER L. 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 VARICOSE VEINS X3 BACK SX X3, METAL JOVANI SPRINTHER PUMP UROLOGY GALLBLADDER, L HIP REDUCTION, Left heart cath with placement of 2 stents 2016 Medications: Active Scripts Omeprazole (Omeprazole 40MG) 40 MG PO DAILY #30 ECC Ref 5 Prov: 01/08/16 Pantoprazole Sodium 40 MG PO QHS #30 TAB Prov: 01/03/17 Ticagrelor (Brilinta) 90 MG PO BID #60 TAB Prov: 01/03/17 Reported Medications Aspirin (Aspirin EC) 81 MG PO DAILY Amlodipine Besylate (Amlodipine) 5 MG PO DAILY Ibuprofen (MOTRIN 800MG (generic) Tablet) 800 MG PO TID Mirtazapine (Remeron) 15 MG PO QHS Risperidone (Risperdal 0.25MG Tab) 0.25 MG PO BID Levothyroxine Sodium (Levothyroxine 0.075MG) 0.075 MG PO DAILY Furosemide (Furosemide 40MG) 40 MG PO DAILY POTASSIUM CHL (Potassium Chloride) 10 MEQ PO DAILY Losartan Potassium (Losartan 100MG) 100 MG PO DAILY TAMSULOSIN HCL (Flomax 0.4MG) 0.4 MG PO QHS Discontinued Reported Medications CHOLESTYRAMINE/ASPARTAME (Cholestyramine Light Packet) 4 GM PO BID Metolazone (Metolazone 5MG Tablet) 5 MG PO DAILY DIGOXIN (Digox) 0.0625 MG PO DAILY Allergies: Coded Allergies: Penicillins (I-RASH 01/04/17) chlordiazepoxide (STOPPED KIDNEYS 01/04/17) clidinium (STOPPPED KIDNEYS 01/04/17) darifenacin (From ENABLEX) (STOPPED KIDNEYS 01/04/17) iodine (ANXIETY/RASH 01/04/17) oxycodone (VOMITTING/HICCUPS 01/04/17) Family History: Family history: Negative for: unknown (non contributory). Social History: Smoking Hx Tobacco: No Smoker: Never Smoker Type: N/A Packs/day: N/A Are you exposed to second hand No Alcohol: Alcohol: No Hx of Drug Use: Drug Use? No Review of Systems: Patient unresponsive? No Constitutional No: chills. ENT No: throat swelling. Cardiovascular No: palpitations. Respiratory No: productive cough (sputum). GI No: diarrhea, nausea, vomitting. (male) No: flank pain. Skin No: rash. Neurological No: dizziness. Eyes No: discharge. Musculoskeletal No: myalgias. Physical Exam: Vital signs: 1ST Vital Signs Result Date Time Pulse Ox 100 01/04 1347 B/P 134/61 01/04 1347 Temp 98.2 01/04 1347 Pulse 66 01/04 1347 Resp 20 01/04 1347 O2 Delivery ROOM AIR 01/04 1627 O2 Flow Rate 2 01/04 2200 Exam: General appearance: alert, awake, no acute distress Eyes: anicteric ENT: mucous membranes moist Cardiovascular: regular rate & rhythm Respiratory: clear to auscultation ABD: normal bowel sounds, soft, no tenderness Extremities: no peripheral edema Skin: normal color, warm Lab data: Labs: Laboratory Tests 01/05/17 0555: Sodium 145, Potassium 3.9, Chloride 109 H, Carbon Dioxide 29, BUN 12, Creatinine 0.8, Estimated Creat Clear 87, Estimated GFR (MDRD) 93, Glucose 233 H, Calcium 8.4 L, WBC 8.5, RBC 4.19 L, Hgb 11.0 L, Hct 34.1 L, MCV 81.5 L, RDW 14.8, Plt Count 294, MPV 7.4, Gran % 66.8, Gran # 5.7, Lymphocytes % 22.9, Monocytes % 4.8, Eosinophils % 5.0, Basophils % 0.5, Lymphocytes # 2.0, Monocytes # 0.4, Eosinophils # 0.4, Basophils # 0.0, PUBS MCHC 32.1, MCH 26.2 L 01/04/17 2000: Creatine Kinase 35 L, CK-MB (CK-2) Rel Index 2.3, CK and CKMB Interp 0.8, Troponin I 0.05 01/04/17 1723: Troponin I 0.05 01/04/17 1340: Lipase 584 H 01/04/17 1340: B-Natriuretic Peptide 71 01/04/17 1340: Sodium 136, Potassium 3.4 L, Chloride 100, Carbon Dioxide 28, BUN 13, Creatinine 1.0, Estimated Creat Clear 62, Estimated GFR (MDRD) 72, Glucose 368 H, Calcium 8.6, Total Bilirubin 0.5, AST 13 L, ALT 17, Alkaline Phosphatase 90, Creatine Kinase 46, CK-MB (CK-2) Rel Index 1.7, CK and CKMB Interp 0.8, Troponin I 0.05, Total Protein 6.6, Albumin 3.3 L, Globulin 3.3 H, Albumin/Globulin Ratio 1.0 L, WBC 8.4, RBC 4.50 L, Hgb 11.8 L, Hct 36.4 L, MCV 80.8 L, RDW 14.5, Plt Count 312, MPV 7.4, Gran % 63.2, Gran # 5.3, Lymphocytes % 28.1, Monocytes % 5.0, Eosinophils % 3.2, Basophils % 0.4, Lymphocytes # 2.3, Monocytes # 0.4, Eosinophils # 0.3, Basophils # 0.0, PUBS MCHC 32.5, MCH 26.2 L Diagnosis(es): 1. Chest pain Status: Acute 2. Elevated lipase Status: Acute 3. ASCVD (arteriosclerotic cardiovascular disease) Status: Chronic 4. Paroxysmal atrial fibrillation Status: Chronic 5. GERD (gastroesophageal reflux disease) Status: Chronic 6. History of malignant neoplasm of prostate Status: Chronic 7. COPD (chronic obstructive pulmonary disease) Status: Chronic 8. Hypertension Status: Chronic 9. Type 2 diabetes mellitus Status: Chronic 10. S/P hip replacement Status: Chronic Plan: Patient admitted for further evaluation and management of his chest pain and elevated Lipase, see orders. at 7196
--- NOTE | 2017-01-05 22:15 | RADIOLOGY REPORT PS360 ---
CHEST-PORTABLE Ordering Physician: Francisco Chen MD Patient Age: 81 years: Male HISTORY: CP AND SOA chest pain HISTORY of prostate as well as bone CA. History of radiation treatments TECHNIQUE: AP portable upright chest COMPARISON :December 30, 2016 portable chest also portable chest April 2011 and 2015 FINDINGS 2.7 x 2.4 cm cm ovoid nodule left upper lobe just lateral to the left suprahilar region.. This is unchanged since the 20 film of the chest as well as a CT study from 12/30/2016. Minimal linear area scarring at the left midlung this below and lateral to this very minor noted but stable. The Underlying edematous changes with hyperexpansion most evident at the lung yee and slight coarsening markings toward lower lung yee. This appears to be stable feature. As well. Scattered small calcified granulomas bilaterally. With small calcified hilar nodes. Heart bisi and mediastinal structures unchanged. Osseous structures. No discrete osseous lesions. There is a small 7 mm sclerotic focus just below the surgical neck of the humerus on left. Nonspecific. Of heart upper normal in size borderline cardiomegaly. Normal pulmonary vascularity IMPRESSION No acute cardiopulmonary findings. Stable 2.7 x 2.4 cm nodule at left midlung towards L UL... Underlying developing emphysematous changes. Mild accentuation markings left lung base appears stable & similar to previous studies dating back to 2012
[2017-01-06 00:19] VITALS: BP 148/74
[2017-01-06 04:31] VITALS: BP 156/73
[2017-01-06 06:47] LABS: HEMOGLOBIN 10.9 g/dL (14.1-18.0); LYMPH # 2.2 K/mm3 (0.7-4.5); LYMPH % 26.6 % (10-50)
[2017-01-06 08:00] VITALS: BP 151/70
--- NOTE | 2017-01-06 08:17 | ACUTE CARE PROGRESS NOTE (QUA) ---
Progress Notes Subjective Date 01/06/17 Time 0811 Note Feeling fine; slept well; denies pain and SOB; has been OOB to the bathroom. eating without problems Objective Findings Laboratory Tests 01/06/17 0615: Sodium 144, Potassium 3.9, Chloride 109 H, Carbon Dioxide 27, BUN 12, Creatinine 0.7 L, Estimated Creat Clear 99, Estimated GFR (MDRD) 109, Glucose 183 H, Calcium 8.6, Amylase 45, Lipase 106, WBC 8.2, RBC 4.24 L, Hgb 10.9 L, Hct 34.5 L, MCV 81.5 L, RDW 14.7, Plt Count 307, MPV 7.4, Gran % 61.5, Gran # 5.0, Lymphocytes % 26.6, Monocytes % 5.2, Eosinophils % 6.2, Basophils % 0.5, Lymphocytes # 2.2, Monocytes # 0.4, Eosinophils # 0.5 H, Basophils # 0.0, PUBS MCHC 31.6 L, MCH 25.8 L Vital Signs Date Time Temp Pulse Resp B/P Pulse O2 O2 Flow FiO2 Ox Delivery Rate 01/06 0800 98.1 60 18 151/70 98 ROOM AIR 01/06 0431 98.0 48 20 156/73 98 ROOM AIR 01/06 0019 97.8 53 20 148/74 98 ROOM AIR 01/05 2033 97.9 47 18 144/66 95 ROOM AIR 01/05 1944 97.9 47 18 144/66 96 01/05 1835 2 01/05 1700 2 01/05 1538 98.3 54 20 148/83 96 ROOM AIR 01/05 1453 2 01/05 1300 2 01/05 1043 2 01/05 0900 2 Current Medications Acetaminophen 0 .STK-MED ONE PO (DC) Ibuprofen 0 .STK-MED ONE PO (DC) Acetaminophen 500 MG Q6HP PRN PO Ibuprofen 400 MG Q8HP PRN PO Morphine Sulfate 4 MG Q4HP PRN IV Sodium Chloride 1,000 ML .[id number] IV Influenza Virus Vaccine Quadrival 0.5 ML PRN PRN IM Ondansetron HCl 4 MG Q6HP PRN IV Sodium Chloride 1,000 ML .Q25H IV (DC) Sodium Chloride 10 ML PRN PRN IV Nitroglycerin 0.4 MG [id number] PRN SL Sodium Chloride 10 ML PRN PRN IV (DC) Sodium Chloride 10 ML PRN PRN IV (DC) 01/05 1500 01/05 2300 01/06 0700 Intake Total 960 2084 774 Output Total 1650 Balance 960 434 774 Intake, IV 1604 774 Intake, Oral 960 480 Output, Stool Output, Urine 1650 Last VS-Temp:98.1 B/P:151/70 Pulse:60 Resp:18 SaO2:98 ROOM AIR Last weight lbs:184 oz:2 K.519 Method:Bed Scales 01/04/17 CXR IMPRESSION No acute cardiopulmonary findings. Stable 2.7 x 2.4 cm nodule at left midlung towards L UL... Underlying developing emphysematous changes. Mild accentuation markings left lung base appears stable & similar to previous studies dating back to 2011 Exam General appearance: alert, active, no acute distress Cardiovascular: regular rate & rhythm Respiratory: diminished BS bilaterally ABD: non-distended, soft, no tenderness, bowel sounds present Extremities: no peripheral edema Neuro: alert, oriented, speech clear Assessment/Plan Problem List 1. Chest pain Status: Acute 2. Elevated lipase Status: Acute 3. ASCVD (arteriosclerotic cardiovascular disease) Status: Chronic 4. Paroxysmal atrial fibrillation Status: Chronic 5. GERD (gastroesophageal reflux disease) Status: Chronic 6. History of malignant neoplasm of prostate Status: Chronic 7. COPD (chronic obstructive pulmonary disease) Status: Chronic 8. Hypertension Status: Chronic 9. Type 2 diabetes mellitus Status: Chronic 10. S/P hip replacement Status: Chronic Patient condition Improved Plan: cardiology consult This inpt stay is expected to cross 2 MNs from start of care Yes (Myah Parks APRN) Subjective Date 01/06/17 Assessment/Plan Problem List 1. Chest pain Status: Acute 2. Elevated lipase Status: Acute 3. ASCVD (arteriosclerotic cardiovascular disease) Status: Chronic 4. Paroxysmal atrial fibrillation Status: Chronic 5. GERD (gastroesophageal reflux disease) Status: Chronic 6. History of malignant neoplasm of prostate Status: Chronic 7. COPD (chronic obstructive pulmonary disease) Status: Chronic 8. Hypertension Status: Chronic 9. Type 2 diabetes mellitus Status: Chronic 10. S/P hip replacement Status: Chronic Plan: Pt seen and examined. Concur with above. If cardiology has no further plans, may discharge later today. (Tawny Wilson MD) at 0816 at [phone]
[2017-01-06 08:30] VITALS: BP 151/70
--- NOTE | 2017-01-06 08:50 | CONSULT NOTE ---
Standard Demographics Patient Demo Date of Consultation: 01/06/17 Referring Provider: Zachery Case MD Reason for Consultation: Chest pain PRIMARY DIAGNOSIS: CHEST PAIN Problem list Problem list: 1. Syncope, 12/2016, etiology unknown A. History of A. fib B. Sinus bradycardia 2. Abnormal CT of lungs with pulmonary nodule suspicious for Lung CA 3. Ex smoker A. COPD 4. DM, on PO meds 5. HTN 6. Hyperlipidemia 7. Hypothyroidism,on replacement 8. CAD A. LHC with KATHRYN to Prox LAD and distal dominant RCA, 12/31/2016. Normal LVEF and LVEDP. History of present illness: History of present illness: 81 yo recently hospitalized last week for syncope. During that time he was found to have 2 vessel CAD with subsequent coronary stenting. Telemetry showed sinus bradycardia without prolonged pauses or arrhythmic etiology for syncope. He has suspected lung cancer with work up in progress. He has been on antibiotics for pneumonia. He was transferred to OR for rehab on 01/03/2017 and reports chest and abdominal pains starting shortly thereafter that last "all day " on Friday. At some point he was given 2 SL NTG with significant improvement. Denies any associated SOA, nausea or diaphoresis. He is somewhat vague on details of the symptoms but states the chest pains were worse with deep breathing. Due to concern for possible heart attack, he was sent to the ER for evaluation. Initial troponin was normal and no acute EKG changes noted. He was admitted for evaluation and observation. He at times denies any further symptoms but then later states he has some mild discomfort in his abdomen and chest. He states he is happy here this morning. Cardiology consulted for further evaluation and recommendations. Past Medical History: General: Hypertension Yes CVA No Seizures No TB No COPD Yes Asthma No Diabetes Yes Insulin Dependent No Insulin Pump No Angina Yes [place] No Hyperlipidemia Yes Urinary Yes Cancer Yes Rheumatic H.D. No Ulcers No MRSA No GB Disease Yes Other PROSTATE/LYMPH NODES Additional hx DJD A FIB Past Surgical HX: Previous Surgery?Y RT TOTAL HIP REPLACEMENT Prostate Appendix ARTIF URINARY SPHINCTER L. 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 VARICOSE VEINS X3 BACK SX X3, METAL JOVANI SPRINTHER PUMP UROLOGY GALLBLADDER L HIP REDUCTION Allergies Coded Allergies: Penicillins (I-RASH 01/04/17) chlordiazepoxide (STOPPED KIDNEYS 01/04/17) clidinium (STOPPPED KIDNEYS 01/04/17) darifenacin (From ENABLEX) (STOPPED KIDNEYS 01/04/17) iodine (ANXIETY/RASH 01/04/17) oxycodone (VOMITTING/HICCUPS 01/04/17) Home medications: Active Scripts Pantoprazole Sodium 40 MG PO QHS #30 TAB Prov: 01/03/17 Ticagrelor (Brilinta) 90 MG PO BID #60 TAB Prov: 01/03/17 Reported Medications Aspirin (Aspirin EC) 81 MG PO DAILY Amlodipine Besylate (Amlodipine) 5 MG PO DAILY Ibuprofen (MOTRIN 800MG (generic) Tablet) 800 MG PO TID Mirtazapine (Remeron) 15 MG PO QHS Risperidone (Risperdal 0.25MG Tab) 0.25 MG PO BID Levothyroxine Sodium (Levothyroxine 0.075MG) 0.075 MG PO DAILY Furosemide (Furosemide 40MG) 40 MG PO DAILY POTASSIUM CHL (Potassium Chloride) 10 MEQ PO DAILY Losartan Potassium (Losartan 100MG) 100 MG PO DAILY TAMSULOSIN HCL (Flomax 0.4MG) 0.4 MG PO QHS Discontinued Reported Medications CHOLESTYRAMINE/ASPARTAME (Cholestyramine Light Packet) 4 GM PO BID Metolazone (Metolazone 5MG Tablet) 5 MG PO DAILY DIGOXIN (Digox) 0.0625 MG PO DAILY Current Medications: Current Medications Acetaminophen 0 .STK-MED ONE PO (DC) Ibuprofen 0 .STK-MED ONE PO (DC) Acetaminophen 500 MG Q6HP PRN PO Ibuprofen 400 MG Q8HP PRN PO Morphine Sulfate 4 MG Q4HP PRN IV Sodium Chloride 1,000 ML .[id number] IV Influenza Virus Vaccine Quadrival 0.5 ML PRN PRN IM Ondansetron HCl 4 MG Q6HP PRN IV Sodium Chloride 10 ML PRN PRN IV Nitroglycerin 0.4 MG [id number] PRN SL Sodium Chloride 10 ML PRN PRN IV (DC) Sodium Chloride 10 ML PRN PRN IV (DC) Immunization HX Ped.Immunizations UTD Yes DT/Tetanus 1-4 Years Flu [id number] Pneumonia RECEIVED IN PAST TB Test in last year No Family history Family HX Family Hx Insignificant No Diabetes Yes CAD Yes Hypertension No Hyperlipidemia No Cancer Yes TB No Social Hx: Smoking HX Tobacco No Type N/A Packs/day N/A Are you/the child exposed to second-hand smoke: No Alcohol Alcohol: No Hx of Drug Use Drug Use? No Patien't marital status is Patient's support system is good Review of systems: Constitutional No: no symptoms reported. Respiratory SOB with excertion. Cardiovascular see HPI, chest pain Gastrointestinal/Abdominal No no symptoms reported Genitourinary No: no symptoms reported. Musculoskeletal No: no symptoms reported. Neurological No: no symptoms reported. Exam: Admission Vital Signs: 1ST Vital Signs Result Date Time Pulse Ox 100 01/04 1347 B/P 134/61 01/04 1347 Temp 98.2 01/04 1347 Pulse 66 01/04 1347 Resp 20 01/04 1347 O2 Delivery ROOM AIR 01/04 1627 O2 Flow Rate 2 01/04 2200 Last Vital Signs: Vital Signs Result Date Time Pulse Ox 98 01/06 0830 B/P 151/70 01/06 0830 Temp 98.1 01/06 0830 Pulse 60 01/06 0830 Resp 18 01/06 0830 O2 Delivery ROOM AIR 01/06 0800 O2 Flow Rate 2 01/05 1835 Exam General appearance: alert, awake, no acute distress Neck: no carotid bruit, no JVD Cardiovascular: regular rate & rhythm, no murmur Respiratory: clear to auscultation, good air movement ABD: soft, no tenderness Extremities: moves all, no peripheral edema Neuro: alert, intact, oriented Laboratory data: Laboratory Tests 01/06/17 0615: Sodium 144, Potassium 3.9, Chloride 109 H, Carbon Dioxide 27, BUN 12, Creatinine 0.7 L, Estimated Creat Clear 99, Estimated GFR (MDRD) 109, Glucose 183 H, Calcium 8.6, Amylase 45, Lipase 106, WBC 8.2, RBC 4.24 L, Hgb 10.9 L, Hct 34.5 L, MCV 81.5 L, RDW 14.7, Plt Count 307, MPV 7.4, Gran % 61.5, Gran # 5.0, Lymphocytes % 26.6, Monocytes % 5.2, Eosinophils % 6.2, Basophils % 0.5, Lymphocytes # 2.2, Monocytes # 0.4, Eosinophils # 0.5 H, Basophils # 0.0, PUBS MCHC 31.6 L, MCH 25.8 L 01/05/17 0555: Sodium 145, Potassium 3.9, Chloride 109 H, Carbon Dioxide 29, BUN 12, Creatinine 0.8, Estimated Creat Clear 87, Estimated GFR (MDRD) 93, Glucose 233 H, Calcium 8.4 L, WBC 8.5, RBC 4.19 L, Hgb 11.0 L, Hct 34.1 L, MCV 81.5 L, RDW 14.8, Plt Count 294, MPV 7.4, Gran % 66.8, Gran # 5.7, Lymphocytes % 22.9, Monocytes % 4.8, Eosinophils % 5.0, Basophils % 0.5, Lymphocytes # 2.0, Monocytes # 0.4, Eosinophils # 0.4, Basophils # 0.0, PUBS MCHC 32.1, MCH 26.2 L 01/04/17 2000: Creatine Kinase 35 L, CK-MB (CK-2) Rel Index 2.3, CK and CKMB Interp 0.8, Troponin I 0.05 01/04/17 1723: Troponin I 0.05 01/04/17 1340: Lipase 584 H 01/04/17 1340: B-Natriuretic Peptide 71 01/04/17 1340: Sodium 136, Potassium 3.4 L, Chloride 100, Carbon Dioxide 28, BUN 13, Creatinine 1.0, Estimated Creat Clear 62, Estimated GFR (MDRD) 72, Glucose 368 H, Calcium 8.6, Total Bilirubin 0.5, AST 13 L, ALT 17, Alkaline Phosphatase 90, Creatine Kinase 46, CK-MB (CK-2) Rel Index 1.7, CK and CKMB Interp 0.8, Troponin I 0.05, Total Protein 6.6, Albumin 3.3 L, Globulin 3.3 H, Albumin/Globulin Ratio 1.0 L, WBC 8.4, RBC 4.50 L, Hgb 11.8 L, Hct 36.4 L, MCV 80.8 L, RDW 14.5, Plt Count 312, MPV 7.4, Gran % 63.2, Gran # 5.3, Lymphocytes % 28.1, Monocytes % 5.0, Eosinophils % 3.2, Basophils % 0.4, Lymphocytes # 2.3, Monocytes # 0.4, Eosinophils # 0.3, Basophils # 0.0, PUBS MCHC 32.5, MCH 26.2 L Plan Assessment: 1. Chest pain, etiology unknown. Normal troponins and no acute EKG changes, doubt acute coronary syndrome. Likely some component of coronary spasm from coronary stenting last week. Will add low dose isosorbide mononitrate 30 mg daily to his norvasc therapy. No further cardiac workup planned. 2. DM 3. HTN 4. Sinus bradycardia, asymptomatic at this time 5. Suspected Lung Cancer 6. Mild anemia Plan: 1. Discussed with Dr. Horner 2. See above. at 0945
[2017-01-06 11:43] VITALS: BP 150/82
[2017-01-06] MEDS ORDERED: BRILINTA90 MG PO (13:17)
[2017-01-06] MEDS ORDERED: ISOSORBIDE MONO30 MG PO (13:18)
[2017-01-06] MEDS ORDERED: REMERON SOLTAB15 MG PO (13:18)
[2017-01-06 14:25] VITALS: BP 150/82
== END 2017-01-06 14:25 | disposition home health service (06) ==
LOC: ER 13:46 → 2ND 16:21
PROVIDERS: Emergency Medicine; Family Medicine
DX: R07.9 Chest pain, unspecified (principal); R74.8 Abnormal levels of other serum enzymes; I25.10 Atherosclerotic heart disease of native coronary artery without angina pectoris; I10 Essential (primary) hypertension; J44.9 Chronic obstructive pulmonary disease, unspecified; E11.9 Type 2 diabetes mellitus without complications; K21.9 Gastro-esophageal reflux disease without esophagitis; E03.9 Hypothyroidism, unspecified; I48.0 Paroxysmal atrial fibrillation; R91.1 Solitary pulmonary nodule; D64.9 Anemia, unspecified; R00.1 Bradycardia, unspecified; Z85.46 Personal history of malignant neoplasm of prostate; Z79.82 Long term (current) use of aspirin; Z79.899 Other long term (current) drug therapy; Z88.5 Allergy status to narcotic agent; Z88.0 Allergy status to penicillin; Z88.8 Allergy status to other drugs, medicaments and biological substances; Z91.041 Radiographic dye allergy status; Z96.641 Presence of right artificial hip joint; Z95.5 Presence of coronary angioplasty implant and graft
CPT/HCPCS: G0378; J2405

== ENCOUNTER 2017-01-22 09:25 | Observation (INO) | payer MEDICARE ==
[~2017-01-22] VITALS: Ht 180.3 cm; Wt 79.0 kg
[2017-01-22] VITALS (9 sets, daily range): BP systolic 93–166; BP diastolic 39–88
[~2017-01-22 09:25] MED LIST changes: +ISOSORBIDE MONO30 MG PO
--- NOTE | 2017-01-22 09:31 | Emergency Room Report ---
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 N Clinical Suspician of Infection? N Mental Status: 1 - Regular (Normal Baseline) Sepsis Risk:Low Sepsis Risk Have you (or family members/close friends) recently traveled outside the [place]? N If Yes, where/when: Have you had exposure to infectious disease within the past month? TB? Other? Specify: Comment The patient complains of intermittent chest pain for one week. He describes a pain in his anterior lower chest without radiation. It is associated with shortness of breath. He denies nausea or diaphoresis. He says that he had a similar pain in Dr. Wilson's office a week ago and was started on nitroglycerin. His pain is becoming worse and he is having to take 2-3 nitroglycerin at a time. He said he had about 10 minutes of chest pain last night and then also had chest pain this morning. He is currently pain-free. He had a cardiac stent placed by Dr. Horner early December. He also has a lung mass, currently without definitive diagnosis, he is supposed to be getting a biopsy sometime soon. He has been losing weight rapidly according to his son. ALLERGIES Coded Allergies: Penicillins (I-RASH 01/22/17) chlordiazepoxide (STOPPED KIDNEYS 01/22/17) clidinium (STOPPPED KIDNEYS 01/22/17) darifenacin (From ENABLEX) (STOPPED KIDNEYS 01/22/17) iodine (ANXIETY/RASH 01/22/17) oxycodone (VOMITTING/HICCUPS 01/22/17) Home Medications Active Scripts Pantoprazole Sodium 40 MG PO QHS #30 TAB Prov: 01/03/17 Ticagrelor (Brilinta) 90 MG PO BID #60 TAB Ref 2 Prov: 01/06/17 Isosorbide Mononitrate (Isosorbide Mononitrate ER) 30 MG PO DAILY #30 TAB Ref 2 Prov: 01/06/17 Mirtazapine (Remeron) 15 MG PO QHS #30 TAB Ref 2 Prov: 01/06/17 Reported Medications Aspirin (Aspirin EC) 81 MG PO DAILY Amlodipine Besylate (Amlodipine) 5 MG PO DAILY Ibuprofen (MOTRIN 800MG (generic) Tablet) 800 MG PO TID Risperidone (Risperdal 0.25MG Tab) 0.25 MG PO BID Levothyroxine Sodium (Levothyroxine 0.075MG) 0.075 MG PO DAILY Furosemide (Furosemide 40MG) 40 MG PO DAILY POTASSIUM CHL (Potassium Chloride) 10 MEQ PO DAILY Losartan Potassium (Losartan 100MG) 100 MG PO DAILY TAMSULOSIN HCL (Flomax 0.4MG) 0.4 MG PO QHS History Medical History General CAD? Yes Angina: Yes [place]: No Hypertension? Yes Hyperlipidemia? Yes CHF? No DVT? No PE? No COPD? Yes Asthma? No Anemia? No GERD? Yes Gastric ulcers? No GI Bleed? No Hernia? No Thyroid Problems? Yes Hypothyroidism? Yes CVA? No Seizures? No Diabetes? Yes Insulin Dependent: No Insulin Pump: No Home FSBS? Yes Renal Insuffiency? No End Stage Renal Disease? No UTI? Yes Stones? No BPH? No GB Disease: Yes Nephritic Syndrome? No Asplenia? No Hepatitis? No Sickle Cell Disease? No Arthritis? Yes Migraines? No Cataracts? No Glaucoma? No MRSA? No HIV? No TB? No Anxiety? No Depression? No Cancer? Yes Site: PROSTATE More? Yes Additional hx: DJD A FIB Immunization Hx DT/Tetanus 1-4 Years Ago Flu [id number] Pneumonia Received In Past Surgical Hx Previous Surgery?Y RT TOTAL HIP REPLACEMENT Prostate Appendix ARTIF URINARY SPHINCTER L. 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 VARICOSE VEINS X3 BACK SX X3, METAL JOVANI SPRINTHER PUMP UROLOGY GALLBLADDER L HIP REDUCTION Family History Family Hx Diabetes Yes CAD Yes Hypertension No Hyperlipidemia No Cancer Yes TB No Social History Smoking Hx Packs/day < 1 Pack Alcohol Alcohol: No Additionial History Additional History Stents to the left anterior descending and RIGHT coronary artery on December 31. Bare metal stents. Review of Systems All Other Systems Reviewed and Negative Constitutional see HPI, denies diaphoresis, denies fever Respiratory shortness of breath Cardiovascular chest pain Gastrointestinal denies abdominal pain, denies nausea, denies vomiting Physical Exam Vital Signs Vital Signs Date Time Temp Pulse Resp B/P Pulse O2 O2 Flow FiO2 Ox Delivery Rate 01/23 928 97.8 92 18 143/88 97 General Appearance no apparent distress Eye Exam - bilateral eye normal exam, bilateral eye PERRL, bilateral eye EOMI Ear, Nose, Throat hearing grossly normal, normal ENT inspection Neck normal inspection, non-tender, supple, full range of motion Respiratory Status Yes: trachea midline, chest symmetrical, non tender chest. No: respiratory distress. Lung Sounds bilateral: normal breath sounds, lungs clear. Cardiovascular normal exam, regular rate/rhythm, no peripheral edema, no gallop, no JVD, no murmur, no rub, normal peripheral pulses Peripheral Pulses Pulses normal Yes Gastrointestinal normal bowel sounds, normal exam, non tender, soft, no organomegaly Extremities non-tender, normal range of motion, normal inspection Neurologic alert, oriented x 3 Mental status normal mood/affect Skin intact, normal color, warm/dry Medical Decision Making LABS/Meds/Orders Pt receiving controlled substance in ED? No Results/Orders Laboratory Tests 01/22/17 0935: Sodium 139, Potassium 2.4 *L, Chloride 102, Carbon Dioxide 29, BUN 9, Creatinine 1.0, Estimated Creat Clear 68, Estimated GFR (MDRD) 72, Glucose 255 H, Calcium 9.1, Total Bilirubin 0.8, AST 11 L, ALT 12, Alkaline Phosphatase 88, Creatine Kinase 55, CK-MB (CK-2) Rel Index 3.1, CK and CKMB Interp 1.7, Troponin I < 0.02 , Total Protein 7.2, Albumin 3.8, Globulin 3.4 H, Albumin/Globulin Ratio 1.1, WBC 9.4, RBC 4.84, Hgb 12.5 L, Hct 39.0 L, MCV 80.6 L, RDW 14.6, Plt Count 324, MPV 6.7 L, Gran % 72.7, Gran # 6.8, Lymphocytes % 19.6, Monocytes % 4.8, Eosinophils % 2.3, Basophils % 0.6, Lymphocytes # 1.8, Monocytes # 0.5, Eosinophils # 0.2, Basophils # 0.1, PUBS MCHC 32.1, MCH 25.9 L Current Medication Orders Sig/Lazaro Start time Last Medication Dose Route Stop Time Status Admin Potassium Chloride 60 MEQ ONCE ONE 01/22 1030 DC 01/22 PO 01/22 1031 1027 Nitroglycerin 0 .STK-MED ONE 01/22 1026 DC SL Potassium Chloride 0 .STK-MED ONE 01/22 1024 DC PO Aspirin 324 MG ONCE ONE 01/22 1000 DC 01/22 PO 01/22 1001 0954 Aspirin 0 .STK-MED ONE 01/22 0949 DC .ROUTE Sodium Chloride 10 ML PRN PRN 01/22 930 AC IV 01/23 927 Orders Procedure Date/time Status ELECTROCARDIOGRAM REQUEST 01/22 1029 Active Decision to admit 01/22 1026 Active ELECTROCARDIOGRAM REQUEST 01/22 947 Active IV SALINE LOCK 01/22 927 Active OXYGEN PER NURSE 01/22 927 Active CBC WITH AUTO DIFF 01/22 927 Complete CARDIAC ENZYMES 01/22 927 Complete CHEM 12 PROFILE 01/22 927 Complete 12 LEAD EKG-BESSON (INITIAL) 01/22 UNK Active CM/EKG CM/EKG Comments EKG interpreted by Juan Hennessy MD: Rhythm: Atrial flutter with variable AV block Rate: 76 [place]: normal Ectopy: Premature ventricular contractions versus aberrantly conducted beats Conduction: normal ST Segment Changes: Nonspecific T Wave Changes: none Q Waves: none No evidence of acute ischemia or injury EKG #2 interpreted by Juan Hennessy MD: Rhythm: Atrial fibrillation Rate: 64 [place]: normal Ectopy: none Conduction: normal ST Segment Changes: Nonspecific T Wave Changes: none Q Waves: none No evidence of acute ischemia or injury XRAY/CT/US XRAY/CT/US XRAY chest Comment Chest x-ray interpreted by Juan Hennessy M.D. No infiltrate, pneumothorax, pleural effusion, or wide mediastinum. LEFT lung mass, approximately 2.7 cm, unchanged Progress - 10:00 AM: Discussed with Diomedes for Dr. Horner. 10:25 AM: I have discussed the case with Dr. Vergara for Dr. Wilson who agrees to admit the patient to the hospital. We discussed the patient's clinical information, including history, exam, laboratory and radiology results and ED course. Per hospital procedure, I will write temporary bridge inpatient orders on the patient. Discussed results with patient. He indicates he is now having chest pain, 09/26. 10:40 AM: Diomedes requests Metoprolol 5mg IV and 50mg PO. He reports they will be taking the patient to the liaison inspection laboratory assistant. Departure Departure Disposition Still a Patient Clinical Impression Primary Impression: Chest pain Qualifiers: Chest pain type: precordial pain Qualified Code: R07.2 - Precordial pain Secondary Impressions: Hypokalemia, Lung mass Condition STABLE Referrals Tawny Wilson MD (Family) ED Critical Care Critical Care No at 1146
--- OUTSIDE RECORDS SUMMARY | 2017-01-22 09:41 | External Medical Summary Rpt | CCD ---
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 complet or 017 mg/dL 1 ed plasma 06:15 calcium measure ment (mas Serum 11-2 = 109 98-107 complet or 017 mmoL/L ed plasma 06:15 chlorid e measure ment (mo Carbon 01-06-2 = 27 21.0-32 complet dioxide 017 mmoL/L .0 ed 06:15 measure ment Serum 11-2 = 0.7 0.70-1. complet or 017 mg/dL 30 ed plasma 06:15 creatin ine measure ment ( Estimat = 99 50-200 complet ion of 017 ML/MIN ed creatin 06:15 ine renal clearan ce Estimat = 109 >60 complet ed 017 ML/MIN ed glomeru 06:15 lar filtrat ion rate (GF Comment: REFERENCE RANGE: >60 ML/MIN/1.73 SQUARE METERS Comment: If this patient is -[place], then multiply the Comment: result by 1.210. Serum = 183 74-106 complet or 017 mg/dL ed plasma 06:15 glucose measure ment (mas Serum 2 = 3.9 3.5-5.1 complet potassi 017 mmoL/L ed um 06:15 measure ment Serum = 144 136-145 complet sodium 017 mmoL/L ed measure 06:15 ment Lipase measurement (01-06-2017 06:15) Lipase 01-06-2 = 106 73-393 complet measure 017 U/L ed ment 06:15 CBC w auto diff (01-06-2017 06:15) Blood = 8.2 4.8-10. complet leukocy 017 K/MM3 8 ed ramos 06:15 count (number /volume ) Automat = 14.7 11.5-17 complet ed 017 % .5 ed erythro 06:15 cyte distrib ution width Red = 4.24 4.6-6.2 complet blood 017 M/mm3 ed cell 06:15 count Blood = 307 142-424 complet platele 017 K/mm3 ed t count 06:15 Automat = 7.4 7.4-10. complet ed 017 fl 4 ed blood 06:15 platele t mean volume doyle [place] % = 5.2 % 1.7-9.3 complet 017 ed 06:15 Absolut = 0.4 0.1-1.0 complet e 017 K/mm3 ed monocyt 06:15 e count Automat = 81.5 82.2-97 complet ed 017 fl .8 ed erythro 06:15 cyte mean corpusc ular v Automat = 31.6 31.8-35 complet ed 017 g/dl .4 ed erythro 06:15 cyte mean corpusc ular h Mean = 25.8 27-31.2 complet corpusc 017 pg ed ular 06:15 hemoglo bin (MCH) determ Lymphoc = 26.6 10-50 complet yte 017 % ed count, 06:15 blood, automat ed Absolut = 2.2 0.7-4.5 complet e 017 K/mm3 ed lymphoc 06:15 yte count Blood = 10.9 14.1-18 complet hemoglo 017 g/dL .0 ed bin 06:15 measure ment (mass/v olum Blood = 34.5 42.0-52 complet hematoc 017 % .0 ed rit 06:15 (volume fractio n) Granulo = 61.5 37.0-80 complet cyte 017 % .0 ed percent 06:15 age Blood = 5.0 1.3-8.0 complet granulo 017 K/mm3 ed cytes 06:15 automat ed count (numb Automat = 6.2 % 0.1-12. complet ed 017 0 ed blood 06:15 eosinop hils/10 0 leukocy t Automat = 0.5 0.0-0.4 complet ed 017 K/mm3 ed blood 06:15 eosinop hil count Baso % = 0.5 % 0.1-2.0 complet 017 ed 06:15 Automat = 0.0 0-0.2 complet ed 017 K/MM3 ed blood 06:15 basophi l count (count/ vo CBC w auto diff (01-05-2017 05:55) Blood = 8.5 4.8-10. complet leukocy 017 K/MM3 8 ed ramos 05:55 count (number /volume ) Automat = 14.8 11.5-17 complet ed 017 % .5 ed erythro 05:55 cyte distrib ution width Red = 4.19 4.6-6.2 complet blood 017 M/mm3 ed cell 05:55 count Blood = 294 142-424 complet platele 017 K/mm3 ed t count 05:55 Automat = 7.4 7.4-10. complet ed 017 fl 4 ed blood 05:55 platele t mean volume doyle [place] % = 4.8 % 1.7-9.3 complet 017 ed 05:55 Absolut = 0.4 0.1-1.0 complet e 017 K/mm3 ed monocyt 05:55 e count Automat = 81.5 82.2-97 complet ed 017 fl .8 ed erythro 05:55 cyte mean corpusc ular v Automat = 32.1 31.8-35 complet ed 017 g/dl .4 ed erythro 05:55 cyte mean corpusc ular h Mean = 26.2 27-31.2 complet corpusc 017 pg ed ular 05:55 hemoglo bin (MCH) determ Lymphoc = 22.9 10-50 complet yte 017 % ed count, 05:55 blood, automat ed Absolut = 2.0 0.7-4.5 complet e 017 K/mm3 ed lymphoc 05:55 yte count Blood = 11.0 14.1-18 complet hemoglo 017 g/dL .0 ed bin 05:55 measure ment (mass/v olum Blood = 34.1 42.0-52 complet hematoc 017 % .0 ed rit 05:55 (volume fractio n) Granulo = 66.8 37.0-80 complet cyte 017 % .0 ed percent 05:55 age Blood = 5.7 1.3-8.0 complet granulo 017 K/mm3 ed cytes 05:55 automat ed count (numb Automat = 5.0 % 0.1-12. complet ed 017 0 ed blood 05:55 eosinop hils/10 0 leukocy t Automat = 0.4 0.0-0.4 complet ed 017 K/mm3 ed blood 05:55 eosinop hil count Baso % = 0.5 % 0.1-2.0 complet 017 ed 05:55 Automat 01-05-2 = 0.0 0-0.2 complet ed 017 K/MM3 ed blood 05:55 basophi l count (count/ vo Basic metabolic panel (01-05-2017 05:55) Serum 11-19-2 = 145 136-145 complet sodium 017 mmoL/L ed measure 05:55 ment Serum 01-05-2 = 3.9 3.5-5.1 complet potassi 017 mmoL/L ed um 05:55 measure ment Serum 01-05-2 = 233 74-106 complet or 017 mg/dL ed plasma 05:55 glucose measure ment (mas Estimat = 93 >60 complet ed 017 ML/MIN ed glomeru 05:55 lar filtrat ion rate (GF Comment: REFERENCE RANGE: >60 ML/MIN/1.73 SQUARE METERS Comment: If this patient is -[place], then multiply the Comment: result by 1.210. Estimat = 87 50-200 complet ion of 017 ML/MIN ed creatin 05:55 ine renal clearan ce Serum 2 = 0.8 0.70-1. complet or 017 mg/dL 30 ed plasma 05:55 creatin ine measure ment ( Carbon = 29 21.0-32 complet dioxide 017 mmoL/L .0 ed 05:55 measure ment Serum 01-05-2 = 109 98-107 complet or 017 mmoL/L ed plasma 05:55 chlorid e measure ment (mo Serum = 8.4 8.5-10. complet or 017 mg/dL 1 ed plasma 05:55 calcium measure ment (mas Serum 2 = 12 7-18 complet or 017 mg/dL ed plasma 05:55 urea nitroge n measure men Cardiac enzymes (01-04-2017 20:00) Serum 18-2 = 0.05 0.00-0. complet or 017 ng/mL 06 ed plasma 20:00 troponi n i.cardi ac measu Serum = 35 39-308 complet or 017 U/L ed plasma 20:00 creatin e kinase measure m Serum = 0.8 0.0-3.6 complet or 017 ng/mL ed plasma 20:00 creatin e kinase MB measu Serum 11-18-2 = 2.3 0-4.0 complet or 017 U/L ed plasma 20:00 creatin e kinase MB (CK-M Serum or plasma troponin i.cardiac measu (01-04-2017 17:23) Serum 11-18-2 = 0.05 0.00-0. complet or 017 ng/mL 06 ed plasma 17:23 troponi n i.cardi ac measu Comprehensive metabolic panel (01-04-2017 13:40) Serum 11-18-2 = 1.0 1.1-1.8 complet or 017 ed plasma 13:40 albumin /globul in mass ra Serum 01-04-2 = 3.3 3.4-5.0 complet or 017 gm/dL ed plasma 13:40 albumin measure ment (mas Serum 2 = 90 46-116 complet or 017 U/L ed plasma 13:40 alkalin e phospha tase doyle Serum 2 = 0.5 0.2-1.0 complet or 017 mg/dL ed plasma 13:40 total bilirub in measure m Serum 01-04-2 = 13 7-18 complet or 017 mg/dL ed plasma 13:40 urea nitroge n measure men Serum 01-04-2 = 8.6 8.5-10. complet or 017 mg/dL 1 ed plasma 13:40 calcium measure ment (mas Serum 2 = 100 98-107 complet or 017 mmoL/L ed plasma 13:40 chlorid e measure ment (mo Carbon = 28 21.0-32 complet dioxide 017 mmoL/L .0 ed 13:40 measure ment Serum 01-04-2 = 1.0 0.70-1. complet or 017 mg/dL 30 ed plasma 13:40 creatin ine measure ment ( Estimat 2 = 62 50-200 complet ion of 017 ML/MIN ed creatin 13:40 ine renal clearan ce Estimat = 72 >60 complet ed 017 ML/MIN ed glomeru 13:40 lar filtrat ion rate (GF Comment: REFERENCE RANGE: >60 ML/MIN/1.73 SQUARE METERS Comment: If this patient is -[place], then multiply the Comment: result by 1.210. Serum -18-2 = 3.3 1.3-3.2 complet globuli 017 gm/dL [...] s CBC w auto diff (01-04-2017 13:40) Absolut = 0.4 0.1-1.0 complet e 017 K/mm3 ed monocyt 13:40 e count Kent % = 5.0 % 1.7-9.3 complet 017 [...] 4.8-10. complet leukocy 017 K/MM3 8 ed raoms 13:40 count (number /volume ) Automat = 80.8 82.2-97 complet ed 017 fl .8 ed erythro 13:40 cyte mean corpusc ular v Automat = 32.5 31.8-35 complet ed 017 g/dl .4 ed erythro 13:40 cyte mean corpusc ular h Mean = 26.2 27-31.2 complet corpusc 017 pg ed ular 13:40 hemoglo bin (MCH) determ Lymphoc = 28.1 10-50 complet yte 017 % ed count, 13:40 blood, automat ed Absolut = 2.3 0.7-4.5 complet e 017 K/mm3 ed lymphoc 13:40 yte count Blood = 11.8 14.1-18 complet hemoglo 017 g/dL .0 ed bin 13:40 measure ment (mass/v olum Blood = 36.4 42.0-52 complet hematoc 017 % .0 ed rit 13:40 (volume fractio n) Granulo = 63.2 37.0-80 complet cyte 017 % .0 ed percent 13:40 age Blood = 5.3 1.3-8.0 complet granulo 017 K/mm3 ed cytes 13:40 automat ed count (numb Automat = 3.2 % 0.1-12. complet ed 017 0 ed blood 13:40 eosinop hils/10 0 leukocy t Automat = 0.3 0.0-0.4 complet ed 017 K/mm3 ed blood 13:40 eosinop hil count Baso % = 0.4 % 0.1-2.0 complet 017 ed 13:40 Automat = 0.0 0-0.2 complet ed 017 K/MM3 ed blood 13:40 basophi l count (count/ vo Cardiac enzymes (01-04-2017 13:40) Serum = 0.05 0.00-0. complet or 017 ng/mL 06 ed plasma 13:40 troponi n i.cardi ac measu Serum = 46 39-308 complet or 017 U/L ed plasma 13:40 creatin e kinase measure m Serum = 0.8 0.0-3.6 complet or 017 ng/mL ed plasma 13:40 creatin e kinase MB measu Serum = 1.7 0-4.0 complet or 017 U/L ed plasma 13:40 creatin e kinase MB (CK-M Brain natriuretic peptide (01-04-2017 13:40) Brain 01-04- = 71 0-100 complet natriur 017 pg/mL ed etic 13:40 peptide Lipase measurement (01-04-2017 13:40) Lipase = 584 73-393 complet measure 017 U/L ed ment 13:40 Amylase ser/plas (01-03-2017 08:40) Amylase 2 = 50 25-115 complet 017 U/L ed ser/rachel 08:40 s Comprehensive metabolic panel (01-03-2017 08:40) Serum 2 = 1.0 1.1-1.8 complet or 017 ed plasma 08:40 albumin /globul in mass ra Serum = 3.1 3.4-5.0 complet or 017 gm/dL ed plasma 08:40 albumin measure ment (mas Serum = 86 46-116 complet or 017 U/L ed plasma 08:40 alkalin e phospha tase doyle Serum = 0.7 0.2-1.0 complet or 017 mg/dL ed plasma 08:40 total bilirub in measure m Serum = 15 7-18 complet or 017 mg/dL [...] SQUARE METERS Comment: If this patient is -[place], then multiply the Comment: result by 1.210. Serum 11-17-2 = 3.2 1.3-3.2 complet globuli 017 gm/dL [...] 08:40 Basic metabolic panel (01-01-2017 05:50) Serum = 137 136-145 complet sodium 017 mmoL/L ed measure 05:50 ment Serum = 3.1 3.5-5.1 complet potassi 017 mmoL/L ed um 05:50 measure ment Serum = 323 74-106 complet or 017 mg/dL ed plasma 05:50 glucose measure ment (mas Estimat = 81 >60 complet ed 017 ML/MIN ed glomeru 05:50 lar filtrat ion rate (GF Comment: REFERENCE RANGE: >60 ML/MIN/1.73 SQUARE METERS Comment: If this patient is -[place], then multiply the Comment: result by 1.210. Estimat = 74 50-200 complet ion of 017 ML/MIN ed creatin 05:50 ine renal clearan ce Serum = 0.9 0.70-1. complet or 017 mg/dL 30 ed plasma 05:50 creatin ine measure ment ( Carbon = 26 21.0-32 complet dioxide 017 mmoL/L .0 ed 05:50 measure ment Serum 11-15-2 = 101 98-107 complet or 017 mmoL/L ed plasma 05:50 chlorid e measure ment (mo Serum = 9.0 8.5-10. complet or 017 mg/dL 1 ed plasma 05:50 calcium measure ment (mas Serum = 19 7-18 complet or 017 mg/dL ed plasma 05:50 urea nitroge n measure men Activated clotting time (12-31-2016 14:12) Activat = 282 74-125 complet ed 017 SEC ed clottin 14:12 g time Activated clotting time (12-31-2016 13:59) Activat = 335 74-125 complet ed 017 SEC ed clottin 13:59 g time CBC w auto diff (12-31-2016 07:15) Blood [...] blood 07:15 platele t mean volume doyle [place] % = 6.4 % 1.7-9.3 complet 017 [...] blood 07:15 basophi l count (count/ vo Total prostate specific antigen (PSA) wy (12-31-2016 07:15) Total 12-31-2 < 0.1 0.0-4.0 complet prostat 017 ng/mL ed e 07:15 specifi c antigen (PSA) wy Comprehensive metabolic panel (12-31-2016 07:15) Protein 12-31- = 6.3 6.4-8.2 complet total 017 gm/dL ed ser/rachel 07:15 s ALT = 13 12-78 complet (SGPT) [...] SQUARE METERS Comment: If this patient is -[place], then multiply the Comment: result by 1.210. [...] plasma 07:15 albumin measure ment (mas Serum 11-14-2 = 1.0 1.1-1.8 complet or 017 ed plasma 07:15 albumin /globul in mass ra Brain natriuretic peptide (12-31-2016 07:15) Brain 11-14-2 = 207 0-100 complet natriur 017 pg/mL ed etic 07:15 peptide Cardiac enzymes (12-30-2016 23:00) Serum 11-13-2 = 0.14 0.00-0. complet or 017 ng/mL [...] failure Acute neurological disease Atrial fib. Serum 11-13-2 = 75 39-308 complet or 017 U/L ed plasma 23:00 creatin e kinase measure m Serum 11-13-2 = 3.0 0.0-3.6 complet or 017 ng/mL ed plasma 23:00 creatin e kinase MB measu Serum 11-13-2 = 4.0 0-4.0 complet or 017 U/L ed plasma 23:00 creatin e kinase MB (CK-M Cardiac enzymes (12-30-2016 16:55) Serum 11-13-2 = 0.09 0.00-0. complet or 017 ng/mL [...] failure Acute neurological disease Atrial fib. Serum 11-13-2 = 81 39-308 complet or 017 U/L ed plasma 16:55 creatin e kinase measure m Serum 11-13-2 = 2.5 0.0-3.6 complet or 017 ng/mL ed plasma 16:55 creatin e kinase MB measu Serum 11-13-2 = 3.1 0-4.0 complet or 017 U/L [...] w auto diff (12-30-2016 13:55) Blood = 40.3 42.0-52 complet hematoc 017 % .0 ed rit 13:55 (volume fractio n) Granulo = 58.4 37.0-80 complet cyte 017 % .0 ed percent 13:55 age Blood = 7.9 1.3-8.0 complet granulo 017 K/mm3 ed cytes 13:55 automat ed count (numb Automat = 1.3 % 0.1-12. complet ed 017 0 ed blood 13:55 eosinop hils/10 0 leukocy t Automat = 0.2 0.0-0.4 complet ed 017 K/mm3 ed blood 13:55 eosinop hil count Baso % = 0.7 % 0.1-2.0 complet 017 ed 13:55 Automat = 0.1 0-0.2 complet ed 017 K/MM3 ed blood 13:55 basophi l count (count/ vo Blood = 13.6 4.8-10. complet leukocy 017 K/MM3 8 ed ramos 13:55 count (number /volume ) Automat = 14.6 11.5-17 complet ed 017 % .5 ed erythro 13:55 cyte distrib ution width Red = 4.96 4.6-6.2 complet blood 017 M/mm3 ed cell 13:55 count Blood = 392 142-424 complet platele 017 K/mm3 ed t count 13:55 Automat = 6.9 7.4-10. complet ed 017 fl 4 ed blood 13:55 platele t mean volume doyle [place] % = 4.6 % 1.7-9.3 complet 017 ed 13:55 Absolut = 0.6 0.1-1.0 complet e 017 K/mm3 ed monocyt 13:55 e count Automat = 81.2 82.2-97 complet ed 017 fl .8 ed erythro 13:55 cyte mean corpusc ular v Automat = 31.7 31.8-35 complet ed 017 g/dl .4 ed erythro 13:55 cyte mean corpusc ular h Mean = 25.8 27-31.2 complet corpusc 017 pg ed ular 13:55 hemoglo bin (MCH) determ Lymphoc = 35.0 10-50 complet yte 017 % ed count, 13:55 blood, automat ed Absolut = 4.7 0.7-4.5 complet e 017 K/mm3 ed lymphoc 13:55 yte count Blood = 12.8 14.1-18 complet hemoglo 017 g/dL .0 ed bin 13:55 measure ment (mass/v olum Digoxin level (12-30-2016 13:55) Digoxin 2 = 0.56 1.15-2. complet level 017 ng/mL 56 ed 13:55 Magnesium measurement (12-30-2016 13:55) Magnesi = 1.9 1.4-2.2 complet um 017 mg/dL ed measure 13:55 ment Comprehensive metabolic panel (12-30-2016 13:55) Protein = [...] Comment: CRITICAL RESULTS Comment: RESULTS CALLED TO: SUSANA.EAL 12/30/16 1506 Aurelia Dominguez Serum = 295 74-106 complet or 017 mg/dL ed plasma 13:55 glucose measure ment (mas Estimat = 72 >60 complet ed 017 ML/MIN ed glomeru 13:55 lar filtrat ion rate (GF Comment: REFERENCE RANGE: >60 ML/MIN/1.73 SQUARE METERS Comment: If this patient is -[place], then multiply the Comment: result by 1.210. [...] creatin e kinase MB measu Serum = 2.9 0-4.0 complet or 017 U/L ed plasma 13:55 creatin e kinase MB (CK-M Lipase measurement (12-30-2016 13:55) Lipase = 165 73-393 complet measure 017 U/L ed ment 13:55 Amylase ser/plas (12-30-2016 13:55) Amylase = 60 25-115 complet 017 U/L ed ser/rachel 13:55 s Glucose capillary blood glucometer (12-30-2016 13:54) Glucose = 279 70-110 complet 017 mg/dl ed capilla 13:[address]
--- OUTSIDE RECORDS SUMMARY | 2017-01-22 09:41 | External Medical Summary Rpt | CCD ---
Author Author , THELMA Organization THELMA Address Unknown Phone [email or web address] Purpose Continuity of Care Document - 10-29-2016 [...] SQUARE METERS Comment: If this patient is -[place], then multiply the Comment: result by 1.210. [...] blood 06:15 platele t mean volume doyle [place] % = 5.2 % 1.7-9.3 complet 017 [...] blood 05:55 platele t mean volume doyle [place] % = 4.8 % 1.7-9.3 complet 017 [...] SQUARE METERS Comment: If this patient is -[place], then multiply the Comment: result by 1.210. [...] SQUARE METERS Comment: If this patient is -[place], then multiply the Comment: result by 1.210. [...] 017 K/mm3 ed monocyt 13:40 e count [place] % = 5.0 % 1.7-9.3 complet 017 [...] ed ramos 13:40 count (number /volume ) Automat = [...] SQUARE METERS Comment: If this patient is -[place], then multiply the Comment: result by 1.210. [...] SQUARE METERS Comment: If this patient is -[place], then multiply the Comment: result by 1.210. [...] blood 07:15 platele t mean volume doyle [place] % = 6.4 % 1.7-9.3 complet 017 [...] (count/ vo Total prostate specific antigen (PSA) tx (12-31-2016 07:15) Total 12-31-2 < 0.1 0.0-4.0 complet prostat 017 ng/mL ed e 07:15 specifi c antigen (PSA) tx Comprehensive metabolic panel (12-31-2016 07:15) Protein 12-31- [...] SQUARE METERS Comment: If this patient is -[place], then multiply the Comment: result by 1.210. [...] blood 13:55 platele t mean volume doyle [place] % = 4.6 % 1.7-9.3 complet 017 [...] SQUARE METERS Comment: If this patient is -[place], then multiply the Comment: result by 1.210. [...]
--- OUTSIDE RECORDS SUMMARY | 2017-01-22 09:42 | External Medical Summary Rpt | CCD ---
Author Author , THELMA RENEE Address Unknown Phone [email or web address] Immunization Name Date Rout CVX Reac Dose [...]
--- OUTSIDE RECORDS SUMMARY | 2017-01-22 09:42 | External Medical Summary Rpt | CCD ---
Author Author THELMA Address Unknown Phone [email or web address] Purpose Continuity of Care Document - through 2016
--- OUTSIDE RECORDS SUMMARY | 2017-01-22 09:42 | External Medical Summary Rpt | CCD ---
Author Author THELMA Address Unknown Phone [email or web address] Purpose Continuity of Care Document - through 2016
--- OUTSIDE RECORDS SUMMARY | 2017-01-22 09:42 | External Medical Summary Rpt | CCD ---
Author Author , THELMA RENEE Address Unknown Phone [email or web address] Immunization Name Date Rout CVX Reac Dose [...]
[2017-01-22 09:44] LABS: LYMPH # 1.8 K/mm3 (0.7-4.5); LYMPH % 19.6 % (10-50)
--- OUTSIDE RECORDS SUMMARY | 2017-01-22 09:44 | External Medical Summary Rpt ---
Author Author [facility] [employer], [facility] [employer] Organization [employer] Address Unknown Phone Unavailable Results Amylase [Enzymatic activity/volume] in Serum or Plasma Observa Value Referen Units Interpr Notes Date tion ce etation Range Amylase 25 - 115 U/L Normal No Jan 06 [Enzymati informati 2016 6:15 c on in AM activity/ source volume] data in Serum or Plasma Basic metabolic panel in Blood Observa Value Referen Units Interpr Notes Date ti ce etation Range Urea 7 - 18 mg/dL Normal No Jan 06 nitrogen informati 2016 6:15 [Mass/vol on in AM ume] in source Serum or data Plasma Calcium 8.5 - mg/dL Normal No Jan 06 [Mass/vol 10.1 informati 2016 6:15 ume] in on in AM Serum or source Plasma data Chloride 98 - 107 mmoL/L High No Jan 06 [Moles/vo informati 2016 6:15 lume] in on in AM Serum or source Plasma data Carbon 21.0 - mmoL/L Normal No Jan 06 dioxide, 32.0 informati 2016 6:15 total on in AM [Moles/vo source lume] in data Serum or Plasma Creatinin 0.70 - mg/dL Low No Jan 06 e 1.30 informati 2016 6:15 [Mass/vol on in AM ume] in source Serum or data Plasma Creatinin 50 - 200 ML/MIN Normal No Jan 06 e renal informati 2016 6:15 clearance on in AM source predicted data by Cockcroft -Gault formula Estimated >60 ML/MIN No REFERENCE Jan 06 informati RANGE: 2017 6:15 glomerula on in >60 AM r source ML/MIN/1. filtratio data 73 SQUARE n rate METERSIf (GF this patient is -A merican, then multiply theresult by 1.210. Glucose 74 - 106 mg/dL High No Jan 06 [Mass/vol informati 2016 6:15 ume] in on in AM Serum or source Plasma data Potassium 3.5 - 5.1 mmoL/L Normal Jan 06 inform2016 6:15 [Moles/vo on in AM lume] in source Serum or data Plasma Sodium 136 - 145 mmoL/L Normal No Jan 06 [Moles/vo informati 2016 6:15 lume] in on in AM Serum or source Plasma data Lipase [Enzymatic activity/volume] in Serum or Plasma Observa Value Referen Units Interpr Notes Date tion ce etation Range Lipase 73 - 393 U/L Normal No Jan 06 [Enzymati informati 2016 6:15 c on in AM activity/ source volume] data in Serum or Plasma CBC W Auto Differential panel in Blood Observa Value Referen Units Interpr Notes Date tion ce etation Range Basophils 0 - 0.2 K/MM3 Normal No Jan 062016 6:15 [#/volume on in AM ] in source Blood by data Automated count Basophils 0.1 - 2.0 % Normal No Jan 06 / informati 2016 6:15 leukocyte on in AM s in source Blood by data Automated count Eosinophi 0.0 - 0.4 K/mm3 High Jan 06 ls informati 2016 6:15 [#/volume on in AM ] in source Blood by data Automated count Eosinophi 0.1 - % Normal No Jan 06 ls/100 12.0 informati 2016 6:15 leukocyte on in AM s in source Blood by data Automated count Granulocy 1.3 - 8.0 K/mm3 Normal No Jan 06 ramos informati 2016 6:15 [#/volume on in AM ] in source Blood by data Automated count Granulocy 37.0 - % Normal No Jan 06 ramos/100 80.0 informati 2016 6:15 leukocyte on in AM s in source Blood by data Automated count Hematocri 42.0 - % Low Jan 06 t [Volume 52.0 informati 2016 6:15 on in AM Fraction] source of Blood data Hemoglobi 14.1 - g/dL Low Jan 06 n 18.0 informati 2016 6:15 [Mass/vol on in AM ume] in source Blood data Lymphocyt 0.7 - 4.5 K/mm3 Normal Jan 06 es informati 2016 6:15 [#/volume on in AM ] in source Unspecifi data ed specimen by Automated count Lymphocyt 10 - 50 % Normal Jan 06 es informati 2016 6:15 [#/volume on in AM ] in source Unspecifi data ed specimen by Automated count Erythrocy 27 - 31.2 pg Low No Jan 06 te mean informati 2017 6:15 corpuscul on in AM ar source hemoglobi data n [Entitic mass] Erythrocy 31.8 - g/dl Low No Jan 06 te mean 35.4 informati 2017 6:15 corpuscul on in AM ar source hemoglobi data n concentra tion [Mass/vol ume] by Automated count Erythrocy 82.2 - fl Low Jan 06 te mean 97.8 informati 2017 6:15 corpuscul on in AM ar volume source [Entitic data volume] by Automated count Monocytes 0.1 - 1.0 K/mm3 Normal No Jan 06 informati 2017 6:15 [#/volume on in AM ] in source Blood by data Automated count Monocytes 1.7 - 9.3 % Normal No Jan 06 /100 informati 2017 6:15 leukocyte on in AM s in source Blood by data Automated count Platelet 7.4 - fl Normal Jan 06 mean 10.4 informati 2017 6:15 volume on in AM [Entitic source volume] data in Blood by Automated count Platelets 142 - 424 K/mm3 Normal No Jan 06 informati 2017 6:15 [#/volume on in AM ] in source Blood data Erythrocy 4.6 - 6.2 M/mm3 Low No Jan 06 ramos informati 2017 6:15 [#/volume on in AM ] in source Amniotic data fluid Erythrocy 11.5 - % Normal No Jan 06 te 17.5 informati 2016 6:15 distribut on in AM ion width source [Entitic data volume] by Automated count Leukocyte 4.8 - K/MM3 Normal No Jan 06 s 10.8 informati 2016 6:15 [#/volume on in AM ] in source Blood data Basic metabolic panel in Blood Observa Value Referen Units Interpr Notes Date tion ce etation Range Urea 7 - 18 mg/dL Normal No Jan 05 nitrogen informati 2017 5:55 [Mass/vol on in AM ume] in source Serum or data Plasma Calcium 8.5 - mg/dL Low Jan 05 [Mass/vol 10.1 informati 2017 5:55 ume] in on in AM Serum or source Plasma data Chloride 98 - 107 mmoL/L High Jan 05 [Moles/vo informati 2017 5:55 lume] in on in AM Serum or source Plasma data Carbon 21.0 - mmoL/L Normal No Jan 05 dioxide, 32.0 informati 2016 5:55 total on in AM [Moles/vo source lume] in data Serum or Plasma Creatinin 0.70 - mg/dL Normal No Jan 05 e 1.30 informati 2016 5:55 [Mass/vol on in AM ume] in source Serum or data Plasma Creatinin 50 - 200 ML/MIN Normal No Jan 05 e renal informati 2016 5:55 clearance on in AM source predicted data by Cockcroft -Gault formula Estimated >60 ML/MIN No REFERENCE Jan 05 informati RANGE: 2016 5:55 glomerula on in >60 AM r source ML/MIN/1. filtratio data 73 SQUARE n rate METERSIf (GF this patient is -A merican, then multiply theresult by 1.210. Glucose 74 - 106 mg/dL High No Jan 05 [Mass/vol informati 2016 5:55 ume] in on in AM Serum or source Plasma data Potassium 3.5 - 5.1 mmoL/L Normal No Jan 05 informati 2016 5:55 [Moles/vo on in AM lume] in source Serum or data Plasma Sodium 136 - 145 mmoL/L Normal Jan 05 [Moles/vo informati 2016 5:55 lume] in on in AM Serum or source Plasma data CBC W Auto Differential panel in Blood Observa Value Referen Units Interpr Notes Date tion ce etation Range Basophils 0 - 0.2 K/MM3 Normal Jan 05 inform2016 5:55 [#/volume on in AM ] in source Blood by data Automated count Basophils 0.1 - 2.0 % Normal No Jan 05 informati 2016 5:55 leukocyte on in AM s in source Blood by data Automated count Eosinophi 0.0 - 0.4 K/mm3 Normal No Jan 05 ls informati 2016 5:55 [#/volume on in AM ] in source Blood by data Automated count Eosinophi 0.1 - % Normal Jan 05 ls/100 12.0 informati 2016 5:55 leukocyte on in AM s in source Blood by data Automated count Granulocy 1.3 - 8.0 K/mm3 Normal No Jan 05 ramos informati 2016 5:55 [#/volume on in AM ] in source Blood by data Automated count Granulocy 37.0 - % Normal No Jan 05 ramos/100 80.0 informati 2017 5:55 leukocyte on in AM s in source Blood by data Automated count Hematocri 42.0 - % Low No Jan 05 t [Volume 52.0 informati 2016 5:55 on in AM Fraction] source of Blood data Hemoglobi 14.1 - g/dL Low Jan 05 n 18.0 informati 2016 5:55 [Mass/vol on in AM ume] in source Blood data Lymphocyt 0.7 - 4.5 K/mm3 Normal No Jan 05 es informati 2017 5:55 [#/volume on in AM ] in source Unspecifi data ed specimen by Automated count Lymphocyt 10 - 50 % Normal No Jan 05 es informati 2016 5:55 [#/volume on in AM ] in source Unspecifi data ed specimen by Automated count Erythrocy 27 - 31.2 pg Low Jan 05 te mean informati 2016 5:55 corpuscul on in AM ar source hemoglobi data n [Entitic mass] Erythrocy 31.8 - g/dl Normal Jan 05 te mean 35.4 informati 2017 5:55 corpuscul on in AM ar source hemoglobi data n concentra tion [Mass/vol ume] by Automated count Erythrocy 82.2 - fl Low Jan 05 te mean 97.8 informati 2017 5:55 corpuscul on in AM ar volume source [Entitic data volume] by Automated count Monocytes 0.1 - 1.0 K/mm3 Normal No Jan 05 informati 2016 5:55 [#/volume on in AM ] in source Blood by data Automated count Monocytes 1.7 - 9.3 % Normal No Jan 05 /100 informati 2017 5:55 leukocyte on in AM s in source Blood by data Automated count Platelet 7.4 - fl Normal No Jan 05 mean 10.4 informati 2017 5:55 volume on in AM [Entitic source volume] data in Blood by Automated count Platelets 142 - 424 K/mm3 Normal No Jan 05 informati 2017 5:55 [#/volume on in AM ] in source Blood data Erythrocy 4.6 - 6.2 M/mm3 Low No Jan 05 ramos informati 2017 5:55 [#/volume on in AM ] in source Amniotic data fluid Erythrocy 11.5 - % Normal No Jan 05 te 17.5 informati 2017 5:55 distribut on in AM ion width source [Entitic data volume] by Automated count Leukocyte 4.8 - K/MM3 Normal No Jan 05 s 10.8 inform2016 5:55 [#/volume on in AM ] in source Blood data Cardiac enzymes Observa Value Referen Units Interpr Notes Date tion ce etation Range Creatine 0 - 4.0 U/L Normal No Jan 04 kinase.MB informati 2016 8:00 /Creatine on in PM source kinase.to data jossy [Ratio] in Serum or Plasma Creatine 0.0 - 3.6 ng/mL Normal No Jan 04 kinase.MB informati 2016 8:00 on in PM [Mass/vol source ume] in data Serum or Plasma Creatine 39 - 308 U/L Low No Jan 04 kinase informati 2016 8:00 [Enzymati on in PM c source activity/ data volume] in Serum or Plasma Troponin 0.00 - ng/mL Normal No Jan 04 I.cardiac 0.06 informati 2016 8:00 on in PM [Mass/vol source ume] in data Serum or Plasma Troponin I.cardiac [Mass/volume] in Serum or Plasma Observa Value Referen Units Interpr Notes tion ce etation Range Troponin 0.00 - ng/mL Normal No Jan 04 I.cardiac 0.06 informati 2016 5:23 on in PM [Mass/vol source ume] in data Serum or Plasma Natriutietic peptide B [Mass/volume] in Serum or Plasma Observa Value Referen Units Interpr Notes ti ce etation Range Natriutie 0 - 100 pg/mL Normal No Jan 04 tic informati 2016 1:40 peptide B on in PM source [Mass/vol data ume] in Serum or Plasma Lipase [Enzymatic activity/volume] in Serum or Plasma Observa Value Referen Units Interpr Notes Date tion ce etation Range Lipase 73 - 393 U/L High No Jan 04 [Enzymati informati 2016 1:40 c on in PM activity/ source volume] data in Serum or Plasma CBC W Auto Differential panel in Blood Observa Value Referen Units Interpr Notes Date tion ce etation Range Basophils 0 - 0.2 K/MM3 Normal No Jan 04 inform2016 1:40 [#/volume on in PM ] in source Blood by data Automated count Basophils 0.1 - 2.0 % Normal No Jan 04 /100 informati 2016 1:40 leukocyte on in PM s in source Blood by data Automated count Eosinophi 0.0 - 0.4 K/mm3 Normal No Dec 18 ls informati 2016 1:40 [#/volume on in [...] Low No Jan 04 n 18.0 informati 2016 1:40 [Mass/vol on in PM ume] in source Blood data Lymphocyt 0.7 - 4.5 K/mm3 Normal No Jan 04 es informati 2016 1:40 [#/volume on in PM ] in source Unspecifi data ed specimen by Automated count Lymphocyt 10 - 50 % Normal No Jan 04 es inform2016 1:40 [#/volume on in PM ] in source Unspecifi data ed specimen by Automated count Erythrocy 27 - 31.2 pg Low No Jan 04 te mean informati 2016 1:40 corpuscul on in PM ar source hemoglobi data n [Entitic mass] Erythrocy 31.8 - g/dl Normal No Jan 04 te mean 35.4 informati 2016 1:40 corpuscul on in PM ar source hemoglobi data n concentra tion [Mass/vol ume] by Automated count Erythrocy 82.2 - fl Low No Jan 04 te mean 97.8 informati 2016 1:40 corpuscul on in PM ar volume source [Entitic data volume] by Automated count Monocytes 0.1 - 1.0 K/mm3 Normal No Jan 04 informati 2016 1:40 [#/volume on in PM ] in source Blood by data Automated count Monocytes 1.7 - 9.3 % Normal No Nov 18 /100 informati 2017 1:40 leukocyte on in PM s in source Blood by data Automated count Platelet 7.4 - fl Normal No Jan 04 mean 10.4 informati 2016 1:40 volume on in PM [Entitic source volume] data in Blood by Automated count Platelets 142 - 424 K/mm3 Normal No Jan 04 inform2016 1:40 [#/volume on in PM ] in source Blood data Erythrocy 4.6 - 6.2 M/mm3 Low No Jan 04 ramos informati 2016 1:40 [#/volume on in PM ] in source Amniotic data fluid Erythrocy 11.5 - % Normal No Jan 04 te 17.5 informati 2016 1:40 distribut on in PM ion width [...] ng/mL No Jan 04 kinase.MB informati informati 2017 1:40 on in on in PM [Mass/vol source source ume] in data data Serum or Plasma Creatine 39 - 308 U/L Normal No Jan 04 kinase informati 2016 1:40 [Enzymati on in PM c source activity/ data volume] in Serum or Plasma Troponin 0.00 - ng/mL Normal No Jan 04 I.cardiac 0.06 ati 2016 1:40 on in PM [Mass/vol source [...] gm/dL Low No Jan 04 [Mass/vol informati 2016 1:40 [...] data Plasma Calcium 8.5 - mg/dL Normal Jan 04 [Mass/vol 10.1 informati 2016 1:40 [...] Creatinin 0.70 - mg/dL Normal No Jan 04 e 1.30 informati 2016 1:40 [Mass/vol on in PM [...] - 5.1 mmoL/L Low No Jan 04 informati 2016 1:40 [Moles/vo on in PM lume] in source Serum or data Plasma Sodium 136 - 145 mmoL/L Normal No Jan 04 [Moles/vo informati 2016 1:40 lume] in on in PM Serum or source Plasma data Aspartate 15 - 37 U/L Low No Jan 04 informati 2017 1:40 aminotran on in PM sferase source [Enzymati data c activity/ volume] in Serum or Plasma Alanine 12 - 78 U/L Normal No Jan 04 aminotran informati 2017 1:40 sferase on in PM [Enzymati source [...] 3.4 - 5.0 gm/dL Low No Dec 31 [Mass/vol informati 2016 7:15 ume] in on in AM Serum or source Plasma data Alkaline 46 - 116 U/L Normal No Dec 31 phosphata informati 2016 7:15 se on in AM [Enzymati source c data activity/ volume] in Serum or Plasma Bilirubin 0.2 - 1.0 mg/dL Normal No Dec 31 .total informati 2016 7:15 [Mass/vol on in [...] Hematocri 42.0 - % Low No Dec 14 t [Volume 52.0 informati 2016 7:15 on [...] No Dec 31 te mean 97.8 informati 2017 7:15 corpuscul on in AM ar volume [...] Platelet 7.4 - fl Low No Dec 14 mean 10.4 informati 2017 7:15 volume on in AM [Entitic source volume] data in Blood by Automated count Platelets 142 - 424 K/mm3 Normal No Dec 14 informati 2016 7:15 [#/volume on in AM ] in source Blood data Erythrocy 4.6 - 6.2 M/mm3 Low No Dec 14 ramos informati 2017 7:15 [#/volume on in AM ] in source Amniotic data fluid Erythrocy 11.5 - % Normal No Dec 14 te 17.5 informati 2017 7:15 distribut on in AM ion width [...] ng/mL Normal No Dec 30 kinase.MB informati 2017 on in 11:00 PM [Mass/vol source ume] [...] Observa Value Referen Units Interpr Notes Date ce etation Range Digoxin 1.15 - ng/mL [...] U/L Normal No Dec 30 [Enzymati informati 2017 1:55 c on in PM activity/ source volume] data in Serum or Plasma Lipase [Enzymatic activity/volume] in Serum or Plasma Observa Value Referen Units Interpr Notes Date tion ce etation Range Lipase 73 - 393 U/L Normal No Dec 30 [Enzymati informati 2016 1:55 c on in PM activity/ source volume] data in Serum or Plasma CBC W Auto Differential panel in Blood Observa Value Referen Units Interpr Notes Date tion ce etation Range Basophils 0 - 0.2 K/MM3 Normal No Dec 30 inform2016 1:55 [#/volume on in PM ] in source Blood by data Automated count Basophils 0.1 - 2.0 % Normal No Dec 30 /100 informati 2017 1:55 leukocyte on in PM s in source Blood by data Automated count Eosinophi 0.0 - 0.4 K/mm3 Normal No Dec 30 ls informati 2016 1:55 [#/volume on in PM ] in source Blood by data Automated count Eosinophi 0.1 - % Normal No Dec 30 ls/100 12.0 informati 2016 1:55 leukocyte on in PM [...] 4.5 K/mm3 High No Dec 30 es inform2016 1:55 [#/volume on in PM ] in source Unspecifi data ed specimen by Automated count Lymphocyt 10 - 50 % Normal No Dec 30 es informati 2016 1:55 [#/volume on in PM ] in source Unspecifi data ed specimen by Automated count Erythrocy 27 - 31.2 pg Low No Dec 30 te mean informati 2016 1:55 corpuscul on in PM [...] % Normal No Dec 30 /100 informati 2016 1:55 leukocyte on in PM [...] in PM ] in source Blood data Glucose [Mass/volume] in Capillary blood by Glucometer Observa Value Referen Units Interpr Notes Date ti ce etation Range Glucose 70 - 110 mg/dl High No Dec 30 [Mass/vol informati 2016 1:54 ume] in on in PM Capillary source blood by data Glucomete r Digoxin [Mass/volume] in Serum or Plasma Observa Value Referen Units Interpr Notes Date tion ce etation Range Digoxin 1.15 - ng/mL Low No Oct 29 [Mass/vol 2.56 informati 2016 3:00 ume] in on in PM Serum or source Plasma data Natriutietic peptide B [Mass/volume] in Serum or Plasma Observa Value Referen Units Interpr Notes Date tion ce etation Range Natriutie 0 - 100 pg/mL High No Oct 29 tic informati 2016 2:55 peptide B on [...] Serum or Plasma RESU LTS CALLED TO: [facility] 10/29/16 1523 Huber,[place] nda Sodium 136 - 145 mmoL/L Normal No Sep 12 [Moles/vo informati 2017 2:55 lume] in on in PM Serum or source Plasma data Aspartate 15 - 37 U/L Low No Sep 12 informati 2016 2:55 aminotran on in PM sferase source [...] 0.2 K/MM3 Normal No Sep 12 informati 2017 2:55 [#/volume on in PM ] in source Blood by data Automated count Basophils 0.1 - 2.0 % Normal No Sep 12 informati 2016 2:55 leukocyte on in PM [...] K/mm3 Normal No Sep 12 ramos informati 2017 [...] 1.0 K/mm3 Normal No Sep 12 informati 2016 2:55 [#/volume on in PM ] in source Blood by data Automated count Monocytes 1.7 - 9.3 % Normal No Sep 12 /100 informati 2017 2:55 leukocyte on in PM s in source Blood by data Automated count Platelet 7.4 - fl Low No Sep 12 mean 10.4 informati 2016 2:55 volume on in PM [Entitic source volume] data in Blood by Automated count Platelets 142 - 424 K/mm3 Normal No Sep 12 informati 2016 2:55 [...]
--- OUTSIDE RECORDS SUMMARY | 2017-01-22 09:44 | External Medical Summary Rpt ---
Author Author [facility] [employer], [facility] [employer] Organization [employer] Address Unknown Phone Unavailable [...] Serum or Plasma RESU LTS CALLED TO: [facility] 10/29/16 1523 Huber,[place] nda Sodium 136 - 145 mmoL/L Normal [...]
[2017-01-22 10:01] LABS: HEMOGLOBIN 12.5 g/dL (14.1-18.0)
[2017-01-22 10:11] LABS: BUN 9 mg/dL (7-18)
[2017-01-22 10:12] LABS: GFR (ESTIMATED) 72 ML/MIN (>60)
--- OUTSIDE RECORDS SUMMARY | 2017-01-22 10:38 | External Medical Summary Rpt | CCD ---
Author Author , THELMA Organization THELMA Address Unknown Phone [email or web address] Purpose Continuity of Care Document - 10-29-2016 [...] Order Detail nces retati t Range on CBC w auto diff (01-22-2017 09:35) Automat = 0.1 0-0.2 complet ed 017 K/MM3 ed blood 09:35 basophi l count (count/ vo Baso % = 0.6 % 0.1-2.0 complet 017 ed 09:35 Automat = 0.2 0.0-0.4 complet ed 017 K/mm3 ed blood 09:35 eosinop hil count Automat = 2.3 % 0.1-12. complet ed 017 0 ed blood 09:35 eosinop hils/10 0 leukocy t Blood = 6.8 1.3-8.0 complet granulo 017 K/mm3 ed cytes 09:35 automat ed count (numb Granulo = 72.7 37.0-80 complet cyte 017 % .0 ed percent 09:35 age Blood = 39.0 42.0-52 complet hematoc 017 % .0 ed rit 09:35 (volume fractio n) Blood = 12.5 14.1-18 complet hemoglo 017 g/dL .0 ed bin 09:35 measure ment (mass/v olum Absolut = 1.8 0.7-4.5 complet e 017 K/mm3 ed lymphoc 09:35 yte count Lymphoc = 19.6 10-50 complet yte 017 % ed count, 09:35 blood, automat ed Mean = 25.9 27-31.2 complet corpusc 017 pg ed ular 09:35 hemoglo bin (MCH) determ Automat = 32.1 31.8-35 complet ed 017 g/dl .4 ed erythro 09:35 cyte mean corpusc ular h Automat = 80.6 82.2-97 complet ed 017 fl .8 ed erythro 09:35 cyte mean corpusc ular v Absolut = 0.5 0.1-1.0 complet e 017 K/mm3 ed monocyt 09:35 e count [place] % = 4.8 % 1.7-9.3 complet 017 ed 09:35 Automat = 6.7 7.4-10. complet ed 017 fl 4 ed blood 09:35 platele t mean volume doyle Blood = 324 142-424 complet platele 017 K/mm3 ed t count 09:35 Red = 4.84 4.6-6.2 complet blood 017 M/mm3 ed cell 09:35 count Automat = 14.6 11.5-17 complet ed 017 % .5 ed erythro 09:35 cyte distrib ution width Blood = 9.4 4.8-10. complet leukocy 017 K/MM3 8 ed ramos 09:35 count (number /volume ) Cardiac enzymes (01-22-2017 09:35) Serum = 3.1 0-4.0 complet or 017 U/L ed plasma 09:35 creatin e kinase MB (CK-M Serum = 1.7 0.0-3.6 complet or 017 ng/mL ed plasma 09:35 creatin e kinase MB measu Serum = 55 39-308 complet or 017 U/L ed plasma 09:35 creatin e kinase measure m Serum < 0.02 0.00-0. complet or 017 ng/mL 06 ed plasma 09:35 troponi n i.cardi ac measu Comprehensive metabolic panel (01-22-2017 09:35) Serum = 1.1 1.1-1.8 complet or 017 ed plasma 09:35 albumin /globul in mass ra Serum = 3.8 3.4-5.0 complet or 017 gm/dL ed plasma 09:35 albumin measure ment (mas Serum = 88 46-116 complet or 017 U/L ed plasma 09:35 alkalin e phospha tase doyle Serum = 0.8 0.2-1.0 complet or 017 mg/dL ed plasma 09:35 total bilirub in measure m Serum = 9 7-18 complet or 017 mg/dL ed plasma 09:35 urea nitroge n measure men Serum = 9.1 8.5-10. complet or 017 mg/dL 1 ed plasma 09:35 calcium measure ment (mas Serum = 102 98-107 complet or 017 mmoL/L ed plasma 09:35 chlorid e measure ment (mo Carbon = 29 21.0-32 complet dioxide 017 mmoL/L .0 ed 09:35 measure ment Serum = 1.0 0.70-1. complet or 017 mg/dL 30 ed plasma 09:35 creatin ine measure ment ( Estimat = 68 50-200 complet ion of 017 ML/MIN ed creatin 09:35 ine renal clearan ce Estimat = 72 >60 complet ed 017 ML/MIN ed glomeru 09:35 lar filtrat ion rate (GF Comment: REFERENCE RANGE: >60 ML/MIN/1.73 SQUARE METERS Comment: If this patient is -[place], then multiply the Comment: result by 1.210. Serum = 3.4 1.3-3.2 complet globuli 017 gm/dL ed n 09:35 measure ment (mass/v olume) Serum = 255 74-106 complet or 017 mg/dL ed plasma 09:35 glucose measure ment (mas Serum = 2.4 3.5-5.1 complet potassi 017 mmoL/L ed um 09:35 measure ment Comment: CRITICAL RESULTS Comment: RESULTS CALLED TO: EAL 01/22/17 1013 O'Geetha Foote Serum = 139 136-145 complet sodium 017 mmoL/L ed measure 09:35 ment Serum = 11 15-37 complet or 017 U/L ed plasma 09:35 asparta te aminotr ansfera ALT = 12 12-78 complet (SGPT) 017 U/L ed ser/rachel 09:35 s Protein = 7.2 6.4-8.2 complet total 017 gm/dL ed ser/rachel 09:35 s CBC w auto diff (01-06-2017 06:15) Automat = 0.0 0-0.2 complet ed 017 K/MM3 ed blood 06:15 basophi l count (count/ vo Baso % = 0.5 % 0.1-2.0 complet 017 ed 06:15 Automat = 0.5 0.0-0.4 complet ed 017 K/mm3 ed blood 06:15 eosinop hil count Automat = 6.2 % 0.1-12. complet ed 017 0 ed blood 06:15 eosinop hils/10 0 leukocy t Blood = 5.0 1.3-8.0 complet granulo 017 K/mm3 ed cytes 06:15 automat ed count (numb Granulo = 61.5 37.0-80 complet cyte 017 % .0 ed percent 06:15 age Blood = 34.5 42.0-52 complet hematoc 017 % .0 ed rit 06:15 (volume fractio n) Blood = 10.9 14.1-18 complet hemoglo 017 g/dL .0 ed bin 06:15 measure ment (mass/v olum Absolut = 2.2 0.7-4.5 complet e 017 K/mm3 ed lymphoc 06:15 yte count Lymphoc = 26.6 10-50 complet yte 017 % ed count, 06:15 blood, automat ed Mean = 25.8 27-31.2 complet corpusc 017 pg ed ular 06:15 hemoglo bin (MCH) determ Automat = 31.6 31.8-35 complet ed 017 g/dl .4 ed erythro 06:15 cyte mean corpusc ular h Automat = 81.5 82.2-97 complet ed 017 fl .8 ed erythro 06:15 cyte mean corpusc ular v Absolut = 0.4 0.1-1.0 complet e 017 K/mm3 ed monocyt 06:15 e count [place] % = 5.2 % 1.7-9.3 complet 017 ed 06:15 Automat = 7.4 7.4-10. complet ed 017 fl 4 ed blood 06:15 platele t mean volume doyle Blood = 307 142-424 complet platele 017 K/mm3 ed t count 06:15 Red = 4.24 4.6-6.2 complet blood 017 M/mm3 ed cell 06:15 count Automat = 14.7 11.5-17 complet ed 017 % .5 ed erythro 06:15 cyte distrib ution width Blood = 8.2 4.8-10. complet leukocy 017 K/MM3 8 ed ramos 06:15 count (number /volume ) Amylase ser/plas (01-06-2017 06:15) Amylase = 45 25-115 complet 017 U/L ed ser/rachel 06:15 s Basic metabolic panel (01-06-2017 06:15) Serum 01-06- = 12 7-18 complet or 017 mg/dL ed plasma 06:15 urea nitroge n measure men Serum 01-06-2 = 8.6 8.5-10. complet or 017 mg/dL 1 ed plasma 06:15 calcium measure ment (mas Serum 01-06-2 = 109 98-107 complet or 017 mmoL/L ed plasma 06:15 chlorid e measure ment (mo Carbon 01-06-2 = 27 21.0-32 complet dioxide 017 mmoL/L .0 ed 06:15 measure ment Serum 01-06-2 = 0.7 0.70-1. complet or 017 mg/dL 30 ed plasma 06:15 creatin ine measure ment ( Estimat 2 = 99 50-200 complet ion of 017 ML/MIN ed creatin 06:15 ine renal clearan ce Estimat = 109 >60 complet ed 017 ML/MIN ed glomeru 06:15 lar filtrat ion rate (GF Comment: REFERENCE RANGE: >60 ML/MIN/1.73 SQUARE METERS Comment: If this patient is -[place], then multiply the Comment: result by 1.210. Serum 01-06-2 = 183 74-106 complet or 017 mg/dL ed plasma 06:15 glucose measure ment (mas Serum 2 = 3.9 3.5-5.1 complet potassi 017 mmoL/L ed um 06:15 measure ment Serum 01-06-2 = 144 136-145 complet sodium 017 mmoL/L ed measure 06:15 ment Lipase measurement (01-06-2017 06:15) Lipase 01-06-2 = 106 73-393 complet measure 017 U/L ed ment 06:15 CBC w auto diff (01-05-2017 05:55) Automat = 0.0 0-0.2 complet ed 017 K/MM3 ed blood 05:55 basophi l count (count/ vo Baso % = 0.5 % 0.1-2.0 complet 017 ed 05:55 Automat = 0.4 0.0-0.4 complet ed 017 K/mm3 ed blood 05:55 eosinop hil count Automat = 5.0 % 0.1-12. complet ed 017 0 ed blood 05:55 eosinop hils/10 0 leukocy t Blood = 5.7 1.3-8.0 complet granulo 017 K/mm3 ed cytes 05:55 automat ed count (numb Granulo = 66.8 37.0-80 complet cyte 017 % .0 ed percent 05:55 age Blood = 34.1 42.0-52 complet hematoc 017 % .0 ed rit 05:55 (volume fractio n) Blood = 11.0 14.1-18 complet hemoglo 017 g/dL .0 ed bin 05:55 measure ment (mass/v olum Absolut = 2.0 0.7-4.5 complet e 017 K/mm3 ed lymphoc 05:55 yte count Lymphoc = 22.9 10-50 complet yte 017 % ed count, 05:55 blood, automat ed Mean = 26.2 27-31.2 complet corpusc 017 pg ed ular 05:55 hemoglo bin (MCH) determ Automat = 32.1 31.8-35 complet ed 017 g/dl .4 ed erythro 05:55 cyte mean corpusc ular h Automat = 81.5 82.2-97 complet ed 017 fl .8 ed erythro 05:55 cyte mean corpusc ular v Absolut = 0.4 0.1-1.0 complet e 017 K/mm3 ed monocyt 05:55 e count [place] % = 4.8 % 1.7-9.3 complet 017 ed 05:55 Automat = 7.4 7.4-10. complet ed 017 fl 4 ed blood 05:55 platele t mean volume doyle Blood = 294 142-424 complet platele 017 K/mm3 ed t count 05:55 Red = 4.19 4.6-6.2 complet blood 017 M/mm3 ed cell 05:55 count Automat = 14.8 11.5-17 complet ed 017 % .5 ed erythro 05:55 cyte distrib ution width Blood = 8.5 4.8-10. complet leukocy 017 K/MM3 8 ed ramos 05:55 count (number /volume ) Basic metabolic panel (01-05-2017 05:55) Serum 11-19-2 = 12 7-18 complet or 017 mg/dL ed plasma 05:55 urea nitroge n measure men Serum --2 = 8.4 8.5-10. complet or 017 mg/dL 1 ed plasma 05:55 calcium measure ment (mas Serum 01-05-2 = 109 98-107 complet or 017 mmoL/L ed plasma 05:55 chlorid e measure ment (mo Carbon 01-05-2 = 29 21.0-32 complet dioxide 017 mmoL/L .0 ed 05:55 measure ment Serum --2 = 0.8 0.70-1. complet or 017 mg/dL 30 ed plasma 05:55 creatin ine measure ment ( Estimat = 87 50-200 complet ion of 017 ML/MIN ed creatin 05:55 ine renal clearan ce Estimat = 93 >60 complet ed 017 ML/MIN ed glomeru 05:55 lar filtrat ion rate (GF Comment: REFERENCE RANGE: >60 ML/MIN/1.73 SQUARE METERS Comment: If this patient is -[place], then multiply the Comment: result by 1.210. Serum 01-05-2 = 233 74-106 complet or 017 mg/dL ed plasma 05:55 glucose measure ment (mas Serum 01-05-2 = 3.9 3.5-5.1 complet potassi 017 mmoL/L ed um 05:55 measure ment Serum -19-2 = 145 136-145 complet sodium 017 mmoL/L ed measure 05:55 ment Cardiac enzymes (01-04-2017 20:00) Serum 11-18-2 = 2.3 0-4.0 complet or 017 U/L ed plasma 20:00 creatin e kinase MB (CK-M Serum 01-04-2 = 0.8 0.0-3.6 complet or 017 ng/mL ed plasma 20:00 creatin e kinase MB measu Serum 01-04-2 = 35 39-308 complet or 017 U/L ed plasma 20:00 creatin e kinase measure m Serum 18-2 = 0.05 0.00-0. complet or 017 ng/mL 06 ed plasma 20:00 troponi n i.cardi ac measu Serum or plasma troponin i.cardiac measu (01-04-2017 17:23) Serum 18-2 = 0.05 0.00-0. complet or 017 ng/mL 06 ed plasma 17:23 troponi n i.cardi ac measu Cardiac enzymes (01-04-2017 13:40) Serum 01-04-2 = 1.7 0-4.0 complet or 017 U/L ed plasma 13:40 creatin e kinase MB (CK-M Serum = 0.8 0.0-3.6 complet or 017 ng/mL ed plasma 13:40 creatin e kinase MB measu Serum = 46 39-308 complet or 017 U/L ed plasma 13:40 creatin e kinase measure m Serum 2 = 0.05 0.00-0. complet or 017 ng/mL 06 ed plasma 13:40 troponi n i.cardi ac measu Comprehensive metabolic panel (01-04-2017 13:40) Serum 01-04-2 = 1.0 1.1-1.8 complet or 017 ed plasma 13:40 albumin /globul in mass ra Serum = 3.3 3.4-5.0 complet or 017 gm/dL ed plasma 13:40 albumin measure ment (mas Serum = 90 46-116 complet or 017 U/L [...] 13:40 creatin ine measure ment ( Estimat 11-18-2 = 62 50-200 complet ion of 017 ML/MIN ed creatin 13:40 ine renal clearan ce Estimat = 72 >60 complet ed 017 ML/MIN ed glomeru 13:40 lar filtrat ion rate (GF Comment: REFERENCE RANGE: >60 ML/MIN/1.73 SQUARE METERS Comment: If this patient is -[place], then multiply the Comment: result by 1.210. Serum = 3.3 1.3-3.2 complet globuli 017 gm/dL [...] 017 K/mm3 ed monocyt 13:40 e count [place] % = 5.0 % 1.7-9.3 complet 017 [...] 13:40 Brain natriuretic peptide (01-04-2017 13:40) Brain 01-04- = 71 0-100 complet natriur 017 pg/mL ed etic 13:40 peptide Amylase ser/plas (01-03-2017 08:40) Amylase 01-03-2 = 50 25-115 complet 017 U/L ed ser/rcahel 08:40 s Comprehensive metabolic panel (01-03-2017 08:40) [...] mmoL/L .0 ed 08:40 measure ment Serum 2 = 0.9 0.70-1. [...] SQUARE METERS Comment: If this patient is -[place], then multiply the Comment: result by 1.210. Serum 01-03-2 = 3.2 1.3-3.2 complet globuli 017 gm/dL ed n 08:40 measure ment (mass/v olume) Serum 11-17-2 = 288 74-106 complet or 017 mg/dL [...] Basic metabolic panel (01-01-2017 05:50) Serum = 19 7-18 complet or 017 mg/dL ed plasma 05:50 urea nitroge n measure men Serum = 9.0 8.5-10. complet or 017 mg/dL 1 ed plasma 05:50 calcium measure ment (mas Serum = 101 98-107 complet or 017 mmoL/L ed plasma 05:50 chlorid e measure ment (mo Carbon = 26 21.0-32 complet dioxide 017 mmoL/L .0 ed 05:50 measure ment Serum 2 = 0.9 0.70-1. complet or 017 mg/dL 30 ed plasma 05:50 creatin ine measure ment ( Estimat = 74 50-200 complet ion of 017 ML/MIN ed creatin 05:50 ine renal clearan ce Estimat = 81 >60 complet ed 017 ML/MIN ed glomeru 05:50 lar filtrat ion rate (GF Comment: REFERENCE RANGE: >60 ML/MIN/1.73 SQUARE METERS Comment: If this patient is -[place], then multiply the Comment: result by 1.210. Serum 01-01-2 = 323 74-106 complet or 017 mg/dL ed plasma 05:50 glucose measure ment (mas Serum = 3.1 3.5-5.1 complet potassi 017 mmoL/L ed um 05:50 measure ment Serum = 137 136-145 complet sodium 017 mmoL/L ed measure 05:50 ment Activated clotting time (12-31-2016 14:12) Activat = 282 74-125 complet ed 017 SEC ed clottin 14:12 g time Activated clotting time (12-31-2016 13:59) Activat = 335 74-125 complet ed 017 SEC ed clottin 13:59 g time CBC w auto diff (12-31-2016 07:15) Automat = 0.1 0-0.2 complet ed 017 K/MM3 ed blood 07:15 basophi l count (count/ vo Baso % = 0.7 % 0.1-2.0 complet 017 ed 07:15 Automat = 0.3 0.0-0.4 complet ed 017 [...] 017 K/mm3 ed monocyt 07:15 e count [place] % = 6.4 % 1.7-9.3 complet 017 [...] erythro 07:15 cyte distrib ution width Blood = 7.8 4.8-10. complet leukocy 017 K/MM3 8 ed ramos 07:15 count (number /volume ) Brain natriuretic peptide (12-31-2016 07:15) Brain = 207 0-100 complet natriur 017 pg/mL ed etic 07:15 peptide Comprehensive metabolic panel (12-31-2016 07:15) Serum = 1.0 1.1-1.8 complet or 017 ed plasma 07:15 albumin /globul in mass ra Serum = 3.1 3.4-5.0 complet or 017 gm/dL ed plasma 07:15 albumin measure ment (mas Serum = 81 46-116 complet or 017 [...] 07:15 calcium measure ment (mas Serum = 103 98-107 complet or 017 [...] SQUARE METERS Comment: If this patient is -[place], then multiply the Comment: result by 1.210. Serum 12-31-2 = 3.2 1.3-3.2 complet globuli 017 gm/dL ed n 07:15 measure ment (mass/v olume) Serum = 181 74-106 complet or 017 mg/dL ed plasma 07:15 glucose measure ment (mas Serum = 2.6 3.5-5.1 complet potassi 017 mmoL/L ed um 07:15 measure ment Comment: CRITICAL RESULTS Comment: RESULTS CALLED TO: KASSI 12/31/16 0741 Karel Roe Comment: Mel Serum = 141 136-145 complet sodium 017 mmoL/L ed measure 07:15 ment Serum 12-31-2 = 12 15-37 complet or 017 U/L ed plasma 07:15 asparta te aminotr ansfera ALT 12-31- = 13 12-78 complet (SGPT) 017 U/L ed ser/rachel 07:15 s Protein 12-31-2 = 6.3 6.4-8.2 complet total 017 gm/dL ed ser/rachel 07:15 s Total prostate specific antigen (PSA) nj (12-31-2016 07:15) Total 12-31-2 < 0.1 0.0-4.0 complet prostat 017 ng/mL ed e 07:15 specifi c antigen (PSA) me Cardiac enzymes (12-30-2016 23:00) Serum 13-2 = 4.0 0-4.0 complet or 017 U/L ed plasma 23:00 creatin e kinase MB (CK-M Serum 12-30-2 = 3.0 0.0-3.6 complet or 017 ng/mL ed plasma 23:00 creatin e kinase MB measu Serum 12-30-2 = 75 39-308 complet or 017 U/L ed plasma 23:00 creatin e kinase measure m Serum 12-30-2 = 0.14 0.00-0. complet or 017 ng/mL [...] Atrial fib. Cardiac enzymes (12-30-2016 16:55) Serum 12-30-2 = 3.1 0-4.0 complet or 017 U/L ed plasma 16:55 creatin e kinase MB (CK-M Serum = 2.5 0.0-3.6 complet or 017 ng/mL ed plasma 16:55 creatin e kinase MB measu Serum 12-30- = 81 39-308 complet or 017 U/L ed plasma 16:55 creatin e kinase measure m Serum 12-30-2 = 0.09 0.00-0. complet or [...] 017 K/mm3 ed monocyt 13:55 e count [place] % = 4.6 % 1.7-9.3 complet 017 [...] mmoL/L .0 ed 13:55 measure ment Serum 2 = 1.0 0.70-1. [...] SQUARE METERS Comment: If this patient is -[place], then multiply the Comment: result by 1.210. Serum = 295 74-106 complet or 017 mg/dL ed plasma 13:55 glucose measure ment (mas Serum = 2.7 3.5-5.1 complet potassi 017 mmoL/L ed um 13:55 measure ment Comment: CRITICAL RESULTS Comment: RESULTS CALLED TO: SUSANA.EAL 12/30/16 1506 Aurelia Dominguez Serum = 137 [...] complet level 017 ng/mL 56 ed 13:55 Glucose capillary blood glucometer (12-30-2016 13:54) Glucose = 279 70-110 complet 017 mg/dl ed capilla 13:[address]
--- OUTSIDE RECORDS SUMMARY | 2017-01-22 10:38 | External Medical Summary Rpt | CCD ---
Author Author , THELMA Organization THELMA Address Unknown Phone [email or web address] Purpose Continuity of Care Document - 10-29-2016 [...] 017 K/mm3 ed monocyt 09:35 e count [place] % = 4.8 % 1.7-9.3 complet 017 [...] SQUARE METERS Comment: If this patient is -[place], then multiply the Comment: result by 1.210. [...] 017 K/mm3 ed monocyt 06:15 e count [place] % = 5.2 % 1.7-9.3 complet 017 [...] SQUARE METERS Comment: If this patient is -[place], then multiply the Comment: result by 1.210. [...] 017 K/mm3 ed monocyt 05:55 e count [place] % = 4.8 % 1.7-9.3 complet 017 [...] SQUARE METERS Comment: If this patient is -[place], then multiply the Comment: result by 1.210. [...] SQUARE METERS Comment: If this patient is -[place], then multiply the Comment: result by 1.210. [...] 017 K/mm3 ed monocyt 13:40 e count [place] % = 5.0 % 1.7-9.3 complet 017 [...] SQUARE METERS Comment: If this patient is -[place], then multiply the Comment: result by 1.210. [...] SQUARE METERS Comment: If this patient is -[place], then multiply the Comment: result by 1.210. [...] 017 K/mm3 ed monocyt 07:15 e count [place] % = 6.4 % 1.7-9.3 complet 017 ed 07:15 Automat = 7.1 7.4-10. complet ed 017 fl 4 ed blood 07:15 platele t mean volume dyole Blood = 298 142-424 complet platele 017 [...] SQUARE METERS Comment: If this patient is -[place], then multiply the Comment: result by 1.210. [...] 07:15 s Total prostate specific antigen (PSA) tn (12-31-2016 07:15) Total 12-31-2 < 0.1 0.0-4.0 [...] 017 K/mm3 ed monocyt 13:55 e count [place] % = 4.6 % 1.7-9.3 complet 017 [...] SQUARE METERS Comment: If this patient is -[place], then multiply the Comment: result by 1.210. [...]
--- OUTSIDE RECORDS SUMMARY | 2017-01-22 10:39 | External Medical Summary Rpt | CCD ---
Author Author , THELMA RENEE Address Unknown Phone [email or web address] Immunization Name Date Rout CVX Reac Dose [...]
--- OUTSIDE RECORDS SUMMARY | 2017-01-22 10:39 | External Medical Summary Rpt | CCD ---
Author Author THELMA Address Unknown Phone [email or web address] Purpose Continuity of Care Document - through 2016
--- OUTSIDE RECORDS SUMMARY | 2017-01-22 10:39 | External Medical Summary Rpt | CCD ---
Author Author THELMA Address Unknown Phone [email or web address] Purpose Continuity of Care Document - through 2016
--- OUTSIDE RECORDS SUMMARY | 2017-01-22 10:39 | External Medical Summary Rpt | CCD ---
Author Author , THELMA RENEE Address Unknown Phone [employer] Immunization Name Date Rout CVX Reac Dose [...]
--- OUTSIDE RECORDS SUMMARY | 2017-01-22 10:40 | External Medical Summary Rpt ---
Author Author [facility] Garcia, [facility] [employer] Organization [facility] [employer] Address Unknown Phone Unavailable Results CBC W Auto Differential panel in Blood Observa Value Referen Units Interpr Notes Date tion ce etation Range Basophils 0 - 0.2 K/MM3 Normal No Jan 22 informati 2017 9:35 [#/volume on in AM ] in source Blood by data Automated count Basophils 0.1 - 2.0 % Normal No Jan 22 / informati 2017 9:35 leukocyte on in AM s in source Blood by data Automated count Eosinophi 0.0 - 0.4 K/mm3 Normal No Jan 22 ls informati 2017 9:35 [#/volume on in AM ] in source Blood by data Automated count Eosinophi 0.1 - % Normal No Jan 22 ls/100 12.0 informati 2017 9:35 leukocyte on in AM s in source Blood by data Automated count Granulocy 1.3 - 8.0 K/mm3 Normal No Jan 22 ramos informati 2017 9:35 [#/volume on in AM ] in source Blood by data Automated count Granulocy 37.0 - % Normal No Jan 22 ramos/100 80.0 informati 2017 9:35 leukocyte on in AM s in source Blood by data Automated count Hematocri 42.0 - % Low No Jan 22 t [Volume 52.0 informati 2017 9:35 on in AM Fraction] source of Blood data Hemoglobi 14.1 - g/dL Low No Jan 22 n 18.0 informati 2017 9:35 [Mass/vol on in AM ume] in source Blood data Lymphocyt 0.7 - 4.5 K/mm3 Normal No Jan 22 es informati 2017 9:35 [#/volume on in AM ] in source Unspecifi data ed specimen by Automated count Lymphocyt 10 - 50 % Normal No Jan 22 es informati 2017 9:35 [#/volume on in AM ] in source Unspecifi data ed specimen by Automated count Erythrocy 27 - 31.2 pg Low No Dec 6 te mean informati 2016 9:35 corpuscul on in AM ar source hemoglobi data n [Entitic mass] Erythrocy 31.8 - g/dl Normal No Jan 22 te mean 35.4 inform2016 9:35 corpuscul on in AM ar source hemoglobi data n concentra tion [Mass/vol ume] by Automated count Erythrocy 82.2 - fl Low No Jan 22 te mean 97.8 informati 2016 9:35 corpuscul on in AM ar volume source [Entitic data volume] by Automated count Monocytes 0.1 - 1.0 K/mm3 Normal No Jan 22 inform2016 9:35 [#/volume on in AM ] in source Blood by data Automated count Monocytes 1.7 - 9.3 % Normal No Jan 22 /100 informati 2016 9:35 leukocyte on in AM s in source Blood by data Automated count Platelet 7.4 - fl Low No Jan 22 mean 10.4 informati 2016 9:35 volume on in AM [Entitic source volume] data in Blood by Automated count Platelets 142 - 424 K/mm3 Normal No Jan 222016 9:35 [#/volume on in AM ] in source Blood data Erythrocy 4.6 - 6.2 M/mm3 Normal No Jan 22 ramos inform2016 9:35 [#/volume on in AM ] in source Amniotic data fluid Erythrocy 11.5 - % Normal No Jan 22 te 17.5 inform2016 9:35 distribut on in AM ion width source [Entitic data volume] by Automated count Leukocyte 4.8 - K/MM3 Normal No Jan 22 s 10.8 informati 2016 9:35 [#/volume on in AM ] in source Blood data Amylase [Enzymatic activity/volume] in Serum or [...] 1.210. Glucose 74 - 106 mg/dL High Jan 06 [Mass/vol informati 2016 6:15 ume] in on in AM Serum or source Plasma data Potassium 3.5 - 5.1 mmoL/L Normal No Jan 06 informati 2016 6:15 [Moles/vo on in AM lume] in source Serum or data Plasma Sodium 136 - 145 mmoL/L Normal Jan 06 [Moles/vo informati 2016 6:15 lume] in on in AM Serum or source Plasma data Lipase [Enzymatic activity/volume] in Serum or Plasma Observa Value Referen Units Interpr Notes Date tion ce etation Range Lipase 73 - 393 U/L Normal Jan 06 [Enzymati informati 2016 6:15 c on in AM activity/ source volume] data in Serum or Plasma CBC W Auto Differential panel in Blood Observa Value Referen Units Interpr Notes Date tion ce etation Range Basophils 0 - 0.2 K/MM3 Normal No Jan 06 informati 2016 6:15 [#/volume on in AM ] in source Blood by data Automated count Basophils 0.1 - 2.0 % Normal No Jan 06 /100 informati 2016 6:15 leukocyte on in AM s in source Blood by data Automated count Eosinophi 0.0 - 0.4 K/mm3 High No Nov 20 ls informati 2017 6:15 [#/volume on in AM ] in source Blood by data Automated count Eosinophi 0.1 - % Normal No Jan 06 ls/100 12.0 informati 2017 6:15 leukocyte on in AM s in source Blood by data Automated count Granulocy 1.3 - 8.0 K/mm3 Normal No Jan 06 ramos informati 2017 6:15 [#/volume on in AM ] in source Blood by data Automated count Granulocy 37.0 - % Normal No Jan 06 ramos/100 80.0 informati 2017 6:15 leukocyte on in AM s in source Blood by data Automated count Hematocri 42.0 - % Low No Jan 06 t [Volume 52.0 informati 2017 6:15 on in AM Fraction] source of Blood data Hemoglobi 14.1 - g/dL Low No Jan 06 n 18.0 informati 2016 6:15 [Mass/vol on in AM ume] in source Blood data Lymphocyt 0.7 - 4.5 K/mm3 Normal No Jan 06 es informati 2017 6:15 [#/volume on in AM ] in source Unspecifi data ed specimen by Automated count Lymphocyt 10 - 50 % Normal No Jan 06 es informati 2016 6:15 [#/volume [...] 1.7 - 9.3 % Normal No Dec 20 /100 informati 2017 6:15 leukocyte on in AM s in source Blood by data Automated count Platelet 7.4 - fl Normal No Jan 06 mean 10.4 informati 2016 6:15 volume on in AM [Entitic source volume] data in Blood by Automated count Platelets 142 - 424 K/mm3 Normal No Jan 06 informati 2016 6:15 [#/volume on in AM ] in source Blood data Erythrocy 4.6 - 6.2 M/mm3 Low No Jan 06 ramos informati 2016 6:15 [...] mg/dL Normal No Jan 05 nitrogen informati 2016 5:55 [Mass/vol on in AM ume] in source Serum or data Plasma Calcium 8.5 - mg/dL Low Jan 05 [Mass/vol 10.1 informati 2016 5:55 ume] in on in AM Serum or source Plasma data Chloride 98 - 107 mmoL/L High Jan 05 [Moles/vo informati 2016 5:55 lume] in on in AM Serum or source Plasma data Carbon 21.0 - mmoL/L Normal Jan 05 dioxide, 32.0 informati 2016 5:55 [...] ML/MIN No REFERENCE Jan 05 informati RANGE: 2017 5:55 glomerula on in >60 AM r source ML/MIN/1. filtratio data 73 SQUARE n rate METERSIf (GF this patient is -A merican, then multiply theresult by 1.210. Glucose 74 - 106 mg/dL High Jan 05 [Mass/vol informati 2016 5:55 ume] in on in AM Serum or source Plasma data Potassium 3.5 - 5.1 mmoL/L Normal No Jan 05 informati 2016 5:55 [Moles/vo on in AM lume] in source Serum or data Plasma Sodium 136 - 145 mmoL/L Normal No Jan 05 [Moles/vo informati 2016 5:55 lume] in on in AM Serum or source Plasma data CBC W Auto Differential panel in Blood Observa Value Referen Units Interpr Notes Date tion ce etation Range Basophils 0 - 0.2 K/MM3 Normal No Jan 05 inform2016 5:55 [#/volume on in AM ] in source Blood by data Automated count Basophils 0.1 - 2.0 % Normal No Jan 05 /100 informati 2016 5:55 leukocyte on in AM s in source Blood by data Automated count Eosinophi 0.0 - 0.4 K/mm3 Normal Jan 05 ls informati 2016 5:55 [#/volume on in AM ] in source Blood by data Automated count Eosinophi 0.1 - % Normal No Jan 05 ls/100 12.0 informati 2016 5:55 leukocyte on in AM s in source Blood by data Automated count Granulocy 1.3 - 8.0 K/mm3 Normal No Jan 05 ramos informati 2016 5:55 [#/volume on in AM ] in source Blood by data Automated count Granulocy 37.0 - % Normal No Jan 05 ramos/100 80.0 informati 2016 5:55 leukocyte on in AM s in source Blood by data Automated count Hematocri 42.0 - % Low No Jan 05 t [Volume 52.0 ati 2016 5:55 on in AM Fraction] source of Blood data Hemoglobi 14.1 - g/dL Low Jan 05 n 18.0 informati 2016 5:55 [Mass/vol on in AM ume] in source Blood data Lymphocyt 0.7 - 4.5 K/mm3 Normal No Jan 05 es informati 2016 5:55 [#/volume on in AM ] in source Unspecifi data ed specimen by Automated count Lymphocyt 10 - 50 % Normal Jan 05 es informati 2016 5:55 [#/volume on in AM ] in source Unspecifi data ed specimen by Automated count Erythrocy 27 - 31.2 pg Low Jan 05 te mean informati 2016 5:55 corpuscul on in AM ar source hemoglobi data n [Entitic mass] Erythrocy 31.8 - g/dl Normal Jan 05 te mean 35.4 informati 2016 5:55 corpuscul on in AM ar source hemoglobi data n concentra tion [Mass/vol ume] by Automated count Erythrocy 82.2 - fl Low No Jan 05 te mean 97.8 informati 2016 5:55 corpuscul on in AM ar volume source [Entitic data volume] by Automated count Monocytes 0.1 - 1.0 K/mm3 Normal No Jan 05 informati 2016 5:55 [#/volume on in AM ] in source Blood by data Automated count Monocytes 1.7 - 9.3 % Normal No Jan 05 /100 informati 2016 5:55 leukocyte on in AM s in source Blood by data Automated count Platelet 7.4 - fl Normal No Jan 05 mean 10.4 informati 2016 5:55 volume on in AM [Entitic source volume] data in Blood by Automated count Platelets 142 - 424 K/mm3 Normal No Jan 05 inform2016 5:55 [#/volume on in AM ] in source Blood data Erythrocy 4.6 - 6.2 M/mm3 Low No Jan 05 ramos informati 2016 5:55 [#/volume on in AM ] in source Amniotic data fluid Erythrocy 11.5 - % Normal No Jan 05 te 17.5 informati 2016 5:55 distribut on in AM ion width source [Entitic data volume] by Automated count Leukocyte 4.8 - K/MM3 Normal No Jan 05 s 10.8 informati 2016 5:55 [#/volume on in AM [...] ng/mL Normal No Jan 04 I.cardiac 0.06 2016 5:23 on in PM [Mass/vol source ume] in data Serum or Plasma Natriutietic peptide B [Mass/volume] in Serum or Plasma Observa Value Referen Units Interpr Notes Date tion ce etation Range Natriutie 0 - 100 pg/mL Normal No Jan 04 tic 2016 1:40 peptide B on in PM [...] Interpr Notes Date ti ce etation Range Basophils 0 - 0.2 K/MM3 Normal No Jan 042016 1:40 [#/volume on in PM ] in source Blood by data Automated count Basophils 0.1 - 2.0 % Normal No Jan 04 /100 informati 2016 1:40 leukocyte on in PM s in source Blood by data Automated count Eosinophi 0.0 - 0.4 K/mm3 Normal No Jan 04 ls 2016 1:40 [#/volume on in PM ] in source Blood by data Automated count Eosinophi 0.1 - % Normal No Jan 04 ls/100 12.0 informati 2016 1:40 leukocyte on in PM s in source Blood by data Automated count Granulocy 1.3 - 8.0 K/mm3 Normal No Jan 04 ramos inform2016 1:40 [#/volume on in PM ] in source Blood by data Automated count Granulocy 37.0 - % Normal No Jan 04 ramos/100 80.0 informati 2016 1:40 leukocyte on in PM s in source Blood by data Automated count Hematocri 42.0 - % Low No Jan 04 t [Volume 52.0 2016 1:40 on in PM Fraction] source [...] 424 K/mm3 Normal No Jan 04 informati 2016 [...] 4.0 U/L Normal No Jan 04 kinase.MB ati 2016 1:40 /Creatine on in PM source [...] Normal No Jan 04 e 1.30 informati 2017 1:40 [Mass/vol on [...] Sodium 136 - 145 mmoL/L Normal Jan 04 [Moles/vo informati 2016 1:40 lume] [...] 1.1 - 1.8 No Low No Dec 17 lobulin informati informati 2016 8:40 [Mass on in on in AM ratio] in source source Serum or data data Plasma Albumin 3.4 - 5.0 gm/dL Low Jan 03 [Mass/vol informati 2016 [...] Normal No Jan 03 dioxide, 32.0 informati 2016 8:40 total on in AM [Moles/vo source [...] 5.1 mmoL/L Low No Dec 15 informati 2017 5:50 [Moles/vo on in AM lume] in source Serum or data Plasma Sodium 136 - 145 mmoL/L Normal No Dec 15 [Moles/vo informati 2016 5:50 lume] in on in AM Serum or source Plasma data Activated clotting time in Blood by Coagulation assay Observa Value Referen Units Interpr Notes Date tion ce etation Range Activated 74 - 125 SEC High No Dec 31 clotting alert informati 2017 2:12 time in on in PM Blood [...] pg/mL High No Dec 31 tic informati 2016 7:15 peptide B on in AM source [Mass/vol data ume] in Serum or Plasma Comprehensive metabolic 2000 panel in Serum or Plasma Observa Value Referen Units Interpr Notes Date tion ce etation Range Albumin/G 1.1 - 1.8 No Low No Dec 31 lobulin informati informati 2017 7:15 [Mass on in on in AM ratio] in source source Serum or data data Plasma Albumin 3.4 - 5.0 gm/dL Low No Dec 31 [Mass/vol informati 2017 7:15 ume] in on in AM Serum or source Plasma data Alkaline 46 - 116 U/L Normal No Dec 31 phosphata informati 2016 7:15 se on in AM [Enzymati source c data activity/ volume] in Serum or Plasma Bilirubin 0.2 - 1.0 mg/dL Normal No Dec 31 .total informati 2017 7:15 [Mass/vol on in AM ume] in source Serum or data Plasma Urea 7 - 18 mg/dL Normal No Dec 31 nitrogen informati 2017 7:15 [Mass/vol on in AM [...] 78 U/L Normal No Dec 31 aminotran informati 2016 7:15 sferase on in [...] Eosinophi 0.1 - % Normal No Dec 14 ls/100 12.0 informati 2016 7:15 leukocyte on in AM s in source Blood by data Automated count Granulocy 1.3 - 8.0 K/mm3 Normal No Dec 14 ramos informati 2016 7:15 [...] Hemoglobi 14.1 - g/dL Low No Dec 31 n 18.0 informati 2016 7:15 [Mass/vol on [...] 6.2 M/mm3 Low No Dec 14 ramos ati 2016 7:15 [#/volume on in AM ] [...] Test strip Erythro NEGATIV NEG No No Dec 30 cytes E informa [...] - 2.0 % Normal No Dec 30 informati 2016 1:55 leukocyte on in PM [...] 8.0 K/mm3 Normal No Dec 30 ramos ati 2016 [...] Automated count Platelet 7.4 - fl Low Dec 30 mean 10.4 informati 2016 1:55 [...] High No Dec 30 s 10.8 informati 2017 1:55 [#/volume on in PM ] in source Blood data Glucose [Mass/volume] in Capillary blood by Glucometer Observa Value Referen Units Interpr Notes Date tion ce etation Range Glucose 70 - 110 [...] Serum or Plasma RESU LTS CALLED TO: [facility] 10/29/16 1523 Hub[place] Sodium 136 - 145 mmoL/L Normal [...] Normal No Sep 12 ls/100 12.0 informati 2017 2:55 leukocyte on in PM [...]
--- OUTSIDE RECORDS SUMMARY | 2017-01-22 10:40 | External Medical Summary Rpt ---
[...] Serum or Plasma RESU LTS CALLED TO: [facility] 10/29/16 1523 Huber,[place] Sodium 136 - 145 mmoL/L Normal [...]
--- NOTE | 2017-01-22 10:52 | CONSULT NOTE ---
See Addendum Standard Demographics Patient Demo Date of Consultation: 01/22/17 Referring Provider: Kade Vergara MD Reason for Consultation: Unstable Angina, Recent coronary stent PRIMARY DIAGNOSIS: Chest pain Problem list Problem list: 1. CAD A. recent coronary stenting with BMS to LAD and RCA, ASA and Brilinta for 30 days 2. Suspected lung cancer, workup in progress, 12/2016 3. HTN 4. COPD 5. Hyperlipidemia 6. DM History of present illness: History of present illness: 81 yo WM with CAD and recent BMS to LAD and RCA due to possible need for lung cancer surgery was seen in the ER for evaluation of recurrent chest pains over the last week that resolves with NTG SL. EKG shows A. flutter with rates in the 75-125 bpm range. Cardiology consulted for further evaluation. Pt given NTG SL X 2 in ER with improvement in symptoms. No acute EKG changes noted. Past Medical History: General: Hypertension Yes CVA No Seizures No TB No COPD Yes Asthma No Diabetes Yes Insulin Dependent No Insulin Pump No Angina Yes VT No Hyperlipidemia Yes Urinary Yes Cancer Yes Rheumatic H.D. No Ulcers No MRSA No GB Disease Yes Other PROSTATE/LYMPH NODES Additional hx DJD A FIB Past Surgical HX: Previous Surgery?Y RT TOTAL HIP REPLACEMENT Prostate Appendix ARTIF URINARY SPHINCTER L. 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 VARICOSE VEINS X3 BACK SX X3, METAL JOVANI SPRINTHER PUMP UROLOGY GALLBLADDER L HIP REDUCTION Allergies Coded Allergies: Penicillins (I-RASH 01/22/17) chlordiazepoxide (STOPPED KIDNEYS 01/22/17) clidinium (STOPPPED KIDNEYS 01/22/17) darifenacin (From ENABLEX) (STOPPED KIDNEYS 01/22/17) iodine (ANXIETY/RASH 01/22/17) oxycodone (VOMITTING/HICCUPS 01/22/17) Home medications: Active Scripts Pantoprazole Sodium 40 MG PO QHS #30 TAB Prov: 01/03/17 Ticagrelor (Brilinta) 90 MG PO BID #60 TAB Ref 2 Prov: 01/06/17 Isosorbide Mononitrate (Isosorbide Mononitrate ER) 30 MG PO DAILY #30 TAB Ref 2 Prov: 01/06/17 Mirtazapine (Remeron) 15 MG PO QHS #30 TAB Ref 2 Prov: 01/06/17 Reported Medications Aspirin (Aspirin EC) 81 MG PO DAILY Amlodipine Besylate (Amlodipine) 5 MG PO DAILY Ibuprofen (MOTRIN 800MG (generic) Tablet) 800 MG PO TID Risperidone (Risperdal 0.25MG Tab) 0.25 MG PO BID Levothyroxine Sodium (Levothyroxine 0.075MG) 0.075 MG PO DAILY Furosemide (Furosemide 40MG) 40 MG PO DAILY POTASSIUM CHL (Potassium Chloride) 10 MEQ PO DAILY Losartan Potassium (Losartan 100MG) 100 MG PO DAILY TAMSULOSIN HCL (Flomax 0.4MG) 0.4 MG PO QHS Current Medications: Current Medications Metoprolol Tartrate 5 MG ONCE ONE IV (DC) Metoprolol Tartrate 50 MG ONCE ONE PO (DC) Nitroglycerin 0.4 MG [id number] PRN SL Potassium Chloride 60 MEQ ONCE ONE PO (DC) Nitroglycerin 0 .STK-MED ONE SL (DC) Potassium Chloride 0 .STK-MED ONE PO (DC) Aspirin 324 MG ONCE ONE PO (DC) Aspirin 0 .STK-MED ONE .ROUTE (DC) Sodium Chloride 10 ML PRN PRN IV Immunization HX Ped.Immunizations UTD Yes DT/Tetanus 1-4 Years Flu 2017-SN Pneumonia RECEIVED IN PAST Family history Family HX Family Hx Insignificant No Diabetes Yes CAD Yes Hypertension No Hyperlipidemia No Cancer Yes TB No Social Hx: Smoking HX Tobacco No Type Cigarettes Packs/day < 1 PACK Alcohol Alcohol: No Hx of Drug Use Drug Use? No Review of systems: Constitutional weakness. Respiratory shortness of breath. Cardiovascular see HPI, chest pain, palpitations Gastrointestinal/Abdominal No no symptoms reported Genitourinary No: no symptoms reported. Musculoskeletal back pain. Neurological No: no symptoms reported. Exam: Admission Vital Signs: 1ST Vital Signs Result Date Time Pulse Ox 97 01/23 928 B/P 143/88 01/23 928 Temp 97.8 01/23 928 Pulse 92 01/23 928 Resp 18 01/23 928 Last Vital Signs: Vital Signs Result Date Time Resp 18 01/22 1040 Pulse Ox 97 01/23 928 B/P 143/88 01/23 928 Temp 97.8 01/23 928 Pulse 92 01/23 928 Exam General appearance: alert, awake, no acute distress Cardiovascular: regular rate & rhythm, no murmur Respiratory: clear to auscultation, good air movement ABD: soft, no tenderness Extremities: moves all, edema Neuro: alert, oriented Laboratory data: Laboratory Tests 01/22/17 0935: Sodium 139, Potassium 2.4 *L, Chloride 102, Carbon Dioxide 29, BUN 9, Creatinine 1.0, Estimated Creat Clear 68, Estimated GFR (MDRD) 72, Glucose 255 H, Calcium 9.1, Total Bilirubin 0.8, AST 11 L, ALT 12, Alkaline Phosphatase 88, Creatine Kinase 55, CK-MB (CK-2) Rel Index 3.1, CK and CKMB Interp 1.7, Troponin I < 0.02 , Total Protein 7.2, Albumin 3.8, Globulin 3.4 H, Albumin/Globulin Ratio 1.1, WBC 9.4, RBC 4.84, Hgb 12.5 L, Hct 39.0 L, MCV 80.6 L, RDW 14.6, Plt Count 324, MPV 6.7 L, Gran % 72.7, Gran # 6.8, Lymphocytes % 19.6, Monocytes % 4.8, Eosinophils % 2.3, Basophils % 0.6, Lymphocytes # 1.8, Monocytes # 0.5, Eosinophils # 0.2, Basophils # 0.1, PUBS MCHC 32.1, MCH 25.9 L Plan Assessment: 1. Unstable angina, will take back to the cardiac crown and bridge dental lab technician for evaluation. 2. CAD with recent BMS to LAD and RCA in 12/2016. Still on DAPT 3. A. Flutter with mild RVR. Will give IV metoprolol and PO metoprolol. 4. Suspected Lung Cancer, work up per PCP Plan: Discussed with Dr. Horner. See above. at 2199
--- NOTE | 2017-01-22 11:33 | RADIOLOGY REPORT PS360 ---
CHEST-PORTABLE HISTORY: Chest pain CP ORDERING PHYSICIAN: Tawny Wilson MD PATIENT AGE: 81 years COMPARISON: 01/04/2017 FINDINGS: The cardiomediastinal silhouette and pulmonary vascularity are within normal limits. 2.8 cm left upper lobe nodule once again noted is patient's for neoplasm.. Degenerative changes of the shoulders. IMPRESSION: 1. No change left upper lobe nodule suspicious for neoplasm. 2. No change with no acute finding
--- NOTE | 2017-01-22 13:50 | HISTORY AND PHYSICAL REPORT ---
See Addendum History and Physical ([facility]) Date of admission: 01/22/17 Chief complaint: Chest pain History: History of Present Illness: Mr. Rodriguez is an 81 yo WM with CAD and recent admission for stenting to LAD and RCA due to possible need for lung cancer surgery. He describes a pain in his anterior lower chest without radiation. It is associated with shortness of breath. He denies nausea or diaphoresis. He says that he had a similar pain in [facility] a week ago and was started on nitroglycerin. His pain is becoming worse and he is having to take 2-3 nitroglycerin at a time. He said he had about 10 minutes of chest pain last night and then also had chest pain this morning. He was pain-free in the ER on presentation today. EKG showed A. flutter with rates in the 75-125 bpm range. Cardiology was consulted for further evaluation. Pt was given NTG SL X 2 in ER with improvement in symptoms. Past Medical History: Medical History: CAD? Yes Angina: Yes DE: No Hypertension? Yes Hyperlipidemia? Yes CHF? No DVT? No PE? No COPD? Yes Asthma? No Anemia? No GERD? Yes Gastric ulcers? No GI Bleed? No Hernia? No Thyroid Problems? Yes Hypothyroidism? Yes CVA? No Seizures? No Diabetes? Yes Insulin Dependent: No Insulin Pump: No Home FSBS? Yes Renal Insuffiency? No UTI? Yes Stones? No BPH? No GB Disease: Yes Nephritic Syndrome? No Asplenia? No Hepatitis? No Sickle Cell Disease? No Arthritis? Yes Migraines? No Cataracts? No Glaucoma? No MRSA? No HIV? No TB? No Anxiety? No Depression? No Cancer? Yes Site: PROSTATE More? Yes Additional hx: DJD A FIB Surgical history: Previous Surgery?Y RT TOTAL HIP REPLACEMENT Prostate Appendix ARTIF URINARY SPHINCTER L. 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 VARICOSE VEINS X3 BACK SX X3, METAL JOVANI SPRINTHER PUMP UROLOGY GALLBLADDER L HIP REDUCTION Medications: Active Scripts Pantoprazole Sodium 40 MG PO QHS #30 TAB Prov: 01/03/17 Ticagrelor (Brilinta) 90 MG PO BID #60 TAB Ref 2 Prov: 01/06/17 Isosorbide Mononitrate (Isosorbide Mononitrate ER) 30 MG PO DAILY #30 TAB Ref 2 Prov: 01/06/17 Mirtazapine (Remeron) 15 MG PO QHS #30 TAB Ref 2 Prov: 01/06/17 Reported Medications Aspirin (Aspirin EC) 81 MG PO DAILY Amlodipine Besylate (Amlodipine) 5 MG PO DAILY Ibuprofen (MOTRIN 800MG (generic) Tablet) 800 MG PO TID Risperidone (Risperdal 0.25MG Tab) 0.25 MG PO BID Levothyroxine Sodium (Levothyroxine 0.075MG) 0.075 MG PO DAILY Furosemide (Furosemide 40MG) 40 MG PO DAILY POTASSIUM CHL (Potassium Chloride) 10 MEQ PO DAILY Losartan Potassium (Losartan 100MG) 100 MG PO DAILY TAMSULOSIN HCL (Flomax 0.4MG) 0.4 MG PO QHS Allergies: Coded Allergies: Penicillins (I-RASH 01/22/17) chlordiazepoxide (STOPPED KIDNEYS 01/22/17) clidinium (STOPPPED KIDNEYS 01/22/17) darifenacin (From ENABLEX) (STOPPED KIDNEYS 01/22/17) iodine (ANXIETY/RASH 01/22/17) oxycodone (VOMITTING/HICCUPS 01/22/17) Family History: Family history: Postive for: CAD, cancer (colon). Social History: Smoking Hx Tobacco: No Smoker: Never Smoker Type: Cigarettes Packs/day: < 1 Pack Are you exposed to second hand No Alcohol: Alcohol: No Hx of Drug Use: Drug Use? No Review of Systems: Constitutional Positive for: fatigue, lethargy, malaise, weak. ENT No: nasal congestion, sore throat. Cardiovascular Positive for: chest pain, palpitations. No: edema. Respiratory Positive for: shortness of air. No: productive cough (sputum), wheezing. GI Positive for: diarrhea (off and on). No: abdominal pain, nausea, vomitting. (male) No: frequency, hematuria. Neurological Positive for: weakness. No: dizziness, headache, syncope. Musculoskeletal No: extremity pain, joint pain, myalgias. Physical Exam: Vital signs: 1ST Vital Signs Result Date Time Pulse Ox 97 01/23 928 B/P 143/88 01/23 928 Temp 97.8 01/23 928 Pulse 92 01/23 928 Resp 18 01/23 928 O2 Delivery ROOM AIR 01/22 1047 Exam: General appearance: alert, awake, no acute distress Eyes: EOM's w/normal ROM, PERRLA ENT: mucous membranes moist, nose normal, pharynx normal Neck: non-tender, no carotid bruit, full range of motion, supple Cardiovascular: irregularly irregular Respiratory: clear to auscultation ABD: non-distended, normal bowel sounds, no rebound, soft, no tenderness, no guarding Extremities: no peripheral edema Musculoskeletal: equal muscle strength, motor intact, sensation intact Skin: normal color Neuro: normal mood/affect, oriented, speech clear Lab data: Labs: Laboratory Tests 01/22/17 1155: POC Glucose 177 H 01/22/17 0935: Sodium 139, Potassium 2.4 *L, Chloride 102, Carbon Dioxide 29, BUN 9, Creatinine 1.0, Estimated Creat Clear 68, Estimated GFR (MDRD) 72, Glucose 255 H, Calcium 9.1, Total Bilirubin 0.8, AST 11 L, ALT 12, Alkaline Phosphatase 88, Creatine Kinase 55, CK-MB (CK-2) Rel Index 3.1, CK and CKMB Interp 1.7, Troponin I < 0.02 , Total Protein 7.2, Albumin 3.8, Globulin 3.4 H, Albumin/Globulin Ratio 1.1, WBC 9.4, RBC 4.84, Hgb 12.5 L, Hct 39.0 L, MCV 80.6 L, RDW 14.6, Plt Count 324, MPV 6.7 L, Gran % 72.7, Gran # 6.8, Lymphocytes % 19.6, Monocytes % 4.8, Eosinophils % 2.3, Basophils % 0.6, Lymphocytes # 1.8, Monocytes # 0.5, Eosinophils # 0.2, Basophils # 0.1, PUBS MCHC 32.1, MCH 25.9 L Radiology results: Results: CXR 1. No change left upper lobe nodule suspicious for neoplasm. 2. No change with no acute finding Diagnosis(es): 1. Chest pain Status: Acute 2. Hypokalemia Status: Acute 3. Lung mass Status: Chronic 4. Type 2 diabetes mellitus Status: Chronic 5. Hypertension Status: Chronic 6. COPD (chronic obstructive pulmonary disease) Status: Chronic 7. History of malignant neoplasm of prostate Status: Chronic 8. GERD (gastroesophageal reflux disease) Status: Chronic 9. Urinary stress incontinence, male Status: Chronic 10. Hypothyroid Status: Chronic 11. ASCVD (arteriosclerotic cardiovascular disease) Status: Chronic 12. Paroxysmal atrial fibrillation Status: Chronic 13. 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 Will start on potassium replacement d/t hypokalemia and restart some of his home medications. at 1550 at 1556
[2017-01-23] VITALS (16 sets, daily range): BP systolic 103–164; BP diastolic 46–92
--- NOTE | 2017-01-23 07:28 | PHARMACY CLINIC NOTE ---
See Addendum Patient Demographics Patient Demographics Admission date: 01/22/17 Date: 01/23/17 Time: 0728 Allergies Coded Allergies: Penicillins (I-RASH 01/22/17) chlordiazepoxide (STOPPED KIDNEYS 01/22/17) clidinium (STOPPPED KIDNEYS 01/22/17) darifenacin (From ENABLEX) (STOPPED KIDNEYS 01/22/17) iodine (ANXIETY/RASH 01/22/17) oxycodone (VOMITTING/HICCUPS 01/22/17) HEIGHT- FT: 5 IN: 11.00 K.101 VTE General Information Labs: Laboratory Tests 01/22 0935 Hematology Hgb (14.1 - 18.0 g/dL) 12.5 L Hct (42.0 - 52.0 %) 39.0 L Plt Count (142 - 424 K/mm3) 324 Disclaimer The following section includes nursing documentation that has been pulled in for pharmacy review. Patient's VTE score: 2 Patient's VTE Risk: VERY LOW RISK Clinical trial participant? No VTE prophylaxis [id number] VTE prophylaxis ordered? Yes Type of prophylaxis/treatment: VALERIA at 0728
--- NOTE | 2017-01-23 08:27 | ACUTE CARE PROGRESS NOTE (QUA) ---
Progress Notes Subjective Date 01/23/17 Time 0825 Note Patient states he feels a little bit better this morning. He does not have an appetite. He had difficulty sleeping during the night being in the hospital. He states his chest pain has slightly improved. Objective Findings Last VS-Temp:97.7 B/P:112/61 Pulse:63 Resp:20 SaO2:100 OXYGEN Last weight lbs:181 oz:0 K.101 Method:Bed Scales Laboratory Tests 01/23/17 0746: Sodium 142, Potassium 3.2 L, Chloride 107, Carbon Dioxide 28, BUN 10, Creatinine 0.9, Estimated Creat Clear 76, Estimated GFR (MDRD) 81, Glucose 176 H, Calcium 9.0 01/23/17 0653: POC Glucose 146 H 01/22/17 2047: POC Glucose 141 H 01/22/17 1839: Sodium 143, Potassium 2.6 *L, Chloride 106, Carbon Dioxide 28, BUN 10, Creatinine 0.9, Estimated Creat Clear 76, Estimated GFR (MDRD) 81, Glucose 141 H, Calcium 8.9 01/22/17 1701: POC Glucose 235 H 01/22/17 1155: POC Glucose 177 H 01/22/17 0935: Sodium 139, Potassium 2.4 *L, Chloride 102, Carbon Dioxide 29, BUN 9, Creatinine 1.0, Estimated Creat Clear 68, Estimated GFR (MDRD) 72, Glucose 255 H, Calcium 9.1, Total Bilirubin 0.8, AST 11 L, ALT 12, Alkaline Phosphatase 88, Creatine Kinase 55, CK-MB (CK-2) Rel Index 3.1, CK and CKMB Interp 1.7, Troponin I < 0.02 , Total Protein 7.2, Albumin 3.8, Globulin 3.4 H, Albumin/Globulin Ratio 1.1, WBC 9.4, RBC 4.84, Hgb 12.5 L, Hct 39.0 L, MCV 80.6 L, RDW 14.6, Plt Count 324, MPV 6.7 L, Gran % 72.7, Gran # 6.8, Lymphocytes % 19.6, Monocytes % 4.8, Eosinophils % 2.3, Basophils % 0.6, Lymphocytes # 1.8, Monocytes # 0.5, Eosinophils # 0.2, Basophils # 0.1, PUBS MCHC 32.1, MCH 25.9 L Exam General appearance: alert, awake, no acute distress Cardiovascular: regular rate & rhythm Respiratory: clear to auscultation ABD: non-distended, normal bowel sounds, no rebound, soft, no tenderness, no guarding Extremities: no peripheral edema Assessment/Plan Problem List 1. Chest pain Status: Acute 2. Hypokalemia Status: Acute 3. Lung mass Status: Chronic 4. Type 2 diabetes mellitus Status: Chronic 5. Hypertension Status: Chronic 6. COPD (chronic obstructive pulmonary disease) Status: Chronic 7. History of malignant neoplasm of prostate Status: Chronic 8. GERD (gastroesophageal reflux disease) Status: Chronic 9. Urinary stress incontinence, male Status: Chronic 10. Hypothyroid Status: Chronic 11. ASCVD (arteriosclerotic cardiovascular disease) Status: Chronic 12. Paroxysmal atrial fibrillation Status: Chronic 13. History of heart artery stent Plan: Will continue potassium replacement and patient will have a heart cath this am. This inpt stay is expected to cross 2 MNs from start of care No (Anabell Granda) Subjective Date 01/23/17 Assessment/Plan Problem List 1. Chest pain Status: Acute 2. Hypokalemia Status: Acute 3. Lung mass Status: Chronic 4. Type 2 diabetes mellitus Status: Chronic 5. Hypertension Status: Chronic 6. COPD (chronic obstructive pulmonary disease) Status: Chronic 7. History of malignant neoplasm of prostate Status: Chronic 8. GERD (gastroesophageal reflux disease) Status: Chronic 9. Urinary stress incontinence, male Status: Chronic 10. Hypothyroid Status: Chronic 11. ASCVD (arteriosclerotic cardiovascular disease) Status: Chronic 12. Paroxysmal atrial fibrillation Status: Chronic 13. History of heart artery stent Plan: Pt seen and examined. Concur with above assessment and plan. (Tawny Wilson MD) at 0896 at [phone]
--- NOTE | 2017-01-23 09:20 | RADIOLOGY REPORT PS360 ---
CARDIAC CATHETERIZATION DATE OF CATHETERIZATION:01/23/2017 8:57 AM PROCEDURES: 1. Left heart catheterization 2. Left ventriculogram 3. Selective coronary angiogram 4. Drug-eluting stent deployment to the proximal right coronary artery INDICATION FOR TEST: 1. Unstable angina 2. Known coronary artery disease Informed consent was obtained prior to the procedure. COMPLICATIONS: None ESTIMATED BLOOD LOSS: Less than 10 ml. TECHNIQUE: One percent lidocaine used to anesthetize the right anterior aspect of the wrist. The right radial artery was accessed via the Seldinger technique. A 6 Macedonian sheath was placed in the right radial artery. 2.5 mg of verapamil, 800 mcg of nitroglycerin and 5000 U Heparin were given through the arterial sheath. The trap catheter was also used to perform left heart catheterization left ventriculogram and selective coronary angiography. At the end of the diagnostic angiogram and an additional 3200 units of heparin was administered intravenously. Brilinta was taken this morning prior to this heart catheterization procedure. Upon engagement of the right coronary artery there was significant dampening with the 5 Macedonian diagnostic catheter. 50 mm gradient was identified upon pullback of the catheter. This was further none angiographic evidence of a severe ostial proximal stenosis An [employer] right guide catheter was used intubate the right coronary artery and a BMW wire was placed distally. A 3.5 x 26 mm resolute Martinez stent was deployed at 20 allie reducing the stenosis to 0%. UMA-3 flow was present before and after the procedure. Her excellent angiographic results. At the end procedure the sheath was removed good hemostasis was achieved using TR banding patient transferred to the postop holding area in stable condition. The initial ACT was 276 seconds therefore an additional 2000 units of heparin was administered intravenously. ANGIOGRAPHIC RESULTS: 1. The left main artery normal 2. The left anterior descending artery has ostial proximal mild vascular ectasia followed by a widely patent stent with excellent proximal and distal transitioning with no angiographic evidence of in-stent restenosis the mid segment has 30% nonflow limiting stenoses 3. The circumflex artery is a nondominant vessel has a proximal 30-40% stenosis with 30 and 40% stenoses in the obtuse marginal arteries 4. The right coronary artery is a dominant vessel and has an ostial 70-80 followed by additional proximal 70 day 80% stenosis the stenoses are within the vascular ectatic areas. Immediately distal to the vascular ectasia is a 40% stenosis with distal 30% stenoses. 5. The RICHARDS ventriculogram reveals normal ejection fraction estimated at 65% 6. The left ventricular end-diastolic pressure mildly elevated at 20 mmHg IMPRESSION: 1. Widely patent stent in the proximal LAD with nonflow limiting disease throughout the LAD 2. Mild to moderate nonflow limiting disease in the circumflex artery 3. Severe ostial proximal right coronary artery disease with successful stenting reducing the disease to 0% with 1 drug-eluting stent 4. Normal ejection fraction 5. Mildly elevated LVEDP PLAN: 1. Brilinta and aspirin 2. LDL less than 55 3. Risk factor modification 4. Cardiac Rehabilitation 5. Avoidance of tobacco products
[2017-01-24] VITALS (11 sets, daily range): BP systolic 100–136; BP diastolic 39–71
--- NOTE | 2017-01-24 08:52 | ACUTE CARE PROGRESS NOTE (QUA) ---
See Addendum Progress Notes Subjective Date 01/24/17 Time 0844 Note Pt states he is doing well this am. Had a stent placed yesterday and has done well since that time. Ate and has slept. Objective Findings Last VS-Temp:97.9 B/P:113/51 Pulse:50 Resp:18 SaO2:98 ROOM AIR Last weight lbs:181 oz:0 K.101 Method:Bed Scales Laboratory Tests 01/24/17 0702: POC Glucose 155 H 01/23/17 2010: POC Glucose 334 *H 01/23/17 1757: POC Glucose 347 *H 01/23/17 1214: POC Glucose 282 H 01/23/17 0901: POC Activ Clotting Time 273 *H Exam General appearance: alert, awake, no acute distress Cardiovascular: regular rate & rhythm Respiratory: clear to auscultation ABD: non-distended, normal bowel sounds, no rebound, soft, no tenderness, no guarding Extremities: no peripheral edema Reviewed: Heart cath report reviewed Assessment/Plan Problem List 1. Stented coronary artery Status: Acute 2. Chest pain Status: Acute 3. Hypokalemia Status: Acute 4. Lung mass Status: Chronic 5. Type 2 diabetes mellitus Status: Chronic 6. Hypertension Status: Chronic 7. COPD (chronic obstructive pulmonary disease) Status: Chronic 8. History of malignant neoplasm of prostate Status: Chronic 9. GERD (gastroesophageal reflux disease) Status: Chronic 10. Urinary stress incontinence, male Status: Chronic 11. Hypothyroid Status: Chronic 12. ASCVD (arteriosclerotic cardiovascular disease) Status: Chronic 13. Paroxysmal atrial fibrillation Status: Chronic 14. History of heart artery stent Plan: Pt can probably discharged home today. Will discuss with Dr. Wilson. This inpt stay is expected to cross 2 MNs from start of care No (Anabell Granda) Subjective Date 01/24/17 Time 0906 Assessment/Plan Problem List 1. Stented coronary artery Status: Acute 2. Chest pain Status: Acute 3. Hypokalemia Status: Acute 4. Lung mass Status: Chronic 5. Type 2 diabetes mellitus Status: Chronic 6. Hypertension Status: Chronic 7. COPD (chronic obstructive pulmonary disease) Status: Chronic 8. History of malignant neoplasm of prostate Status: Chronic 9. GERD (gastroesophageal reflux disease) Status: Chronic 10. Urinary stress incontinence, male Status: Chronic 11. Hypothyroid Status: Chronic 12. ASCVD (arteriosclerotic cardiovascular disease) Status: Chronic 13. Paroxysmal atrial fibrillation Status: Chronic 14. History of heart artery stent Plan: Patient was confused last night and still oriented to name only this AM. He denies chest pain. Has not been out of bed. Will discuss dispostion with son when available today. (Tawny Wilson MD) at 0824 at [phone]
--- NOTE | 2017-01-24 09:57 | ACUTE CARE PROGRESS NOTE (QUA) ---
Progress Notes Subjective Date 01/24/17 Time 0951 Note 81 yo WM in bed in NAD. No complaints of chest pain or SOA. States he wants to go home today. Objective Findings Last VS-Temp:97.9 B/P:113/51 Pulse:50 Resp:18 SaO2:98 ROOM AIR Last weight lbs:181 oz:0 K.101 Method:Bed Scales Exam General appearance: alert, awake, no acute distress Cardiovascular: regular rate & rhythm Respiratory: clear to auscultation ABD: soft, no tenderness Extremities: moves all, no peripheral edema Neuro: alert, intact, oriented Reviewed: medications, vital signs, lab results Assessment/Plan Problem List 1. Stented coronary artery Status: Acute Assessment/Plan: Pt received KATHRYN to RCA yesterday. Will need to continue DAPT for at least 3 months prior to consideration of holding them for any pulmonary surgery if needed. 2. Chest pain Status: Acute Qualifiers: Chest pain type: precordial pain Qualified Code: R07.2 - Precordial pain 3. Hypokalemia Status: Acute 4. Lung mass Status: Chronic 5. Type 2 diabetes mellitus Status: Chronic 6. Hypertension Status: Chronic 7. COPD (chronic obstructive pulmonary disease) Status: Chronic 8. History of malignant neoplasm of prostate Status: Chronic 9. GERD (gastroesophageal reflux disease) Status: Chronic 10. Urinary stress incontinence, male Status: Chronic 11. Hypothyroid Status: Chronic 12. ASCVD (arteriosclerotic cardiovascular disease) Status: Chronic 13. Paroxysmal atrial fibrillation Status: Chronic 14. History of heart artery stent Patient condition Stable Plan: continue ASA and Brilinta. Stable from cardiology standpoint for discharge when ok with PCP. Follow up next week. This inpt stay is expected to cross 2 MNs from start of care No at 0957
[2017-01-25] VITALS (7 sets, daily range): BP systolic 102–136; BP diastolic 47–66
--- NOTE | 2017-01-25 08:10 | ACUTE CARE PROGRESS NOTE (QUA) ---
Progress Notes Subjective Date 01/25/17 Time 0808 Note Had episode of chest pain last night relieved with NTG x 2. Noted with bradycardia while sleeping. Still with some confusion but no aggitation. Denies chest pain this morning. Has eaten some breadkfast. Objective Findings Laboratory Tests 01/24/17 1934: POC Glucose 182 H 01/24/17 1747: POC Glucose 301 *H Last VS-Temp:98.0 B/P:127/57 Pulse:60 Resp:20 SaO2:97 ROOM AIR Last weight lbs:181 oz:0 K.101 Method:Bed Scales Exam General appearance: alert. OX2 to name and place Cardiovascular: regular rate & rhythm Respiratory: clear to auscultation ABD: non-distended, normal bowel sounds, soft, no tenderness Extremities: no peripheral edema Assessment/Plan Problem List 1. Stented coronary artery Status: Acute 2. Chest pain Status: Acute 3. Hypokalemia Status: Acute 4. Lung mass Status: Chronic 5. Type 2 diabetes mellitus Status: Chronic 6. Hypertension Status: Chronic 7. COPD (chronic obstructive pulmonary disease) Status: Chronic 8. History of malignant neoplasm of prostate Status: Chronic 9. GERD (gastroesophageal reflux disease) Status: Chronic 10. Urinary stress incontinence, male Status: Chronic 11. Hypothyroid Status: Chronic 12. ASCVD (arteriosclerotic cardiovascular disease) Status: Chronic 13. Paroxysmal atrial fibrillation Status: Chronic 14. History of heart artery stent Plan: Encouraged to get OOB. Awaiting placement at [place]. Will speak with son regarding plans for further evaluation of the lung nodule. This inpt stay is expected to cross 2 MNs from start of care No at 1251
[2017-01-26] VITALS (8 sets, daily range): BP systolic 104–142; BP diastolic 54–84
[2017-01-26 06:22] LABS: LYMPH % 26.5 % (10-50)
[2017-01-26 06:26] LABS: HEMOGLOBIN 10.5 g/dL (14.1-18.0)
--- NOTE | 2017-01-26 08:59 | ACUTE CARE PROGRESS NOTE (QUA) ---
Progress Notes Subjective Date 01/26/17 Time 0858 Note He rested better last night. States he had more chest pain last night and points to his xyphoid process which is rather prominent. He seems apprehensive about the plan to go to [facility] for rehab. Objective Findings Laboratory Tests 01/26/17 1119: POC Glucose 252 H 01/26/17 0612: POC Glucose 142 H 01/26/17 0545: Sodium 139, Potassium 3.0 L, Chloride 104, Carbon Dioxide 30, BUN 16, Creatinine 0.8, Estimated Creat Clear 86, Estimated GFR (MDRD) 93, Glucose 146 H, Calcium 8.9, WBC 7.4, RBC 4.03 L, Hgb 10.5 L, Hct 32.7 L, MCV 81.0 L, RDW 15.1, Plt Count 267, MPV 7.1 L, Gran % 62.8, Gran # 4.7, Lymphocytes % 26.5, Monocytes % 6.9, Eosinophils % 3.1, Basophils % 0.6, Lymphocytes # 2.0, Monocytes # 0.5, Eosinophils # 0.2, Basophils # 0.1, PUBS MCHC 32.1, MCH 26.0 L 01/25/17 2113: POC Glucose 188 H Last VS-Temp:97.8 B/P:104/84 Pulse:71 Resp:20 SaO2:99 ROOM AIR Last weight lbs:181 oz:0 K.101 Method:Bed Scales Exam General appearance: sitting up in chair, alert and oriented to name and place Cardiovascular: regular rate & rhythm Respiratory: clear to auscultation ABD: non-distended, soft, tender on xyphoid process Extremities: no peripheral edema Assessment/Plan Problem List 1. Stented coronary artery Status: Acute 2. Chest pain Status: Acute 3. Hypokalemia Status: Acute 4. Lung mass Status: Chronic 5. Type 2 diabetes mellitus Status: Chronic 6. Hypertension Status: Chronic 7. COPD (chronic obstructive pulmonary disease) Status: Chronic 8. History of malignant neoplasm of prostate Status: Chronic 9. GERD (gastroesophageal reflux disease) Status: Chronic 10. Urinary stress incontinence, male Status: Chronic 11. Hypothyroid Status: Chronic 12. ASCVD (arteriosclerotic cardiovascular disease) Status: Chronic 13. Paroxysmal atrial fibrillation Status: Chronic 14. History of heart artery stent Patient condition Improving Plan: His seems more alert and stonger. Still awaiting approval of bed at [facility] [facility]. This inpt stay is expected to cross 2 MNs from start of care No at 1929
[2017-01-27 00:30] VITALS: BP 154/55
[2017-01-27 03:43] VITALS: BP 125/55
--- NOTE | 2017-01-27 07:58 | ACUTE CARE PROGRESS NOTE (QUA) ---
Progress Notes Subjective Date 01/27/17 Time 0755 Note 81 yo WM in bed in NAD. Knows he is in the hospital but unsure of year or President. No complaint of chest pains. Telemetry shows sinus rhythm. Objective Findings Last VS-Temp:97.5 B/P:125/55 Pulse:87 Resp:17 SaO2:98 ROOM AIR Last weight lbs:181 oz:0 K.101 Method:Bed Scales Exam General appearance: alert, awake, no acute distress Cardiovascular: regular rate & rhythm Respiratory: clear to auscultation Reviewed: medications, vital signs, lab results Assessment/Plan Problem List 1. Stented coronary artery Status: Acute 2. Chest pain Status: Acute Qualifiers: Chest pain type: precordial pain Qualified Code: R07.2 - Precordial pain 3. Hypokalemia Status: Acute 4. Lung mass Status: Chronic 5. Type 2 diabetes mellitus Status: Chronic 6. Hypertension Status: Chronic 7. COPD (chronic obstructive pulmonary disease) Status: Chronic 8. History of malignant neoplasm of prostate Status: Chronic 9. GERD (gastroesophageal reflux disease) Status: Chronic 10. Urinary stress incontinence, male Status: Chronic 11. Hypothyroid Status: Chronic 12. ASCVD (arteriosclerotic cardiovascular disease) Status: Chronic 13. Paroxysmal atrial fibrillation Status: Chronic 14. History of heart artery stent Patient condition Stable Plan: Cardiac status stable on DAPT. Plans for discharge to [facility]. Follow up with us in 1-2 wks This inpt stay is expected to cross 2 MNs from start of care No at 0755
[2017-01-27 08:35] VITALS: BP 169/64
[2017-01-27 09:03] VITALS: BP 169/64
--- NOTE | 2017-01-27 09:39 | ACUTE CARE PROGRESS NOTE (QUA) ---
Progress Notes Subjective Date 01/27/17 Time 0926 Note patient states he feels alright; knows that he may go to long term today; Denies pain and SOB; voiding without problems; bowels moved 2 days ago; eating without problems; ambulates with his walker and has been OOB Objective Findings Laboratory Tests 01/27/17 0637: POC Glucose 157 H 01/26/17 2026: POC Glucose 191 H 01/26/17 1625: POC Glucose 192 H 01/26/17 1119: POC Glucose 252 H Vital Signs Date Time Temp Pulse Resp B/P Pulse O2 O2 Flow FiO2 Ox Delivery Rate 01/27 0835 98.0 63 18 169/64 99 ROOM AIR 01/27 0343 97.5 87 17 125/55 98 ROOM AIR 01/27 0319 94 ROOM AIR 01/27 0030 97.5 54 18 154/55 99 ROOM AIR 01/26 2010 97.7 60 18 119/66 96 01/26 1946 97.7 60 18 119/66 96 ROOM AIR 01/26 1630 98.1 65 20 113/55 96 ROOM AIR 01/26 1230 97.8 71 20 104/84 99 ROOM AIR Current Medications Temazepam 0 .STK-MED ONE PO (DCr) Insulin Human [rDNA origin] 0 .STK-MED ONE SC (DC) Insulin Human [rDNA origin] 0 .STK-MED ONE SC (DC) Potassium Chloride 20 MEQ TID PO Pantoprazole Sodium 40 MG QHS PO Tamsulosin HCl 0.4 MG QHS PO Diagnostic Test (Pha) 1 EACH W/MEALS&HS FS Insulin Human [rDNA origin] SEE ADMIN CRITERIA FOR MEDIUM INTENSITY W/MEALS&HS SC Sodium Chloride 1,000 ML .Q25H IV Amlodipine Besylate 10 MG DAILY PO Aspirin 81 MG DAILY PO Docusate Sodium 250 MG DAILY PO Donepezil HCl 5 MG DAILY PO Furosemide 40 MG DAILY PO Isosorbide Mononitrate 30 MG DAILY PO Levothyroxine Sodium 0.075 MG DAILY PO Patient Own Medication 1 UNIT DAILY PO Risperidone 0.25 MG BID PO Sodium Chloride 8 ML BID IV Ticagrelor 90 MG BID PO Ibuprofen 400 MG Q6H PRN PO Influenza Virus Vaccine Quadrival 0.5 ML PRN PRN IM Nicotine 21 MG DAILYP PRN TD Nitroglycerin 0.4 MG [id number] PRN SL Nitroglycerin 0.4 MG [id number] PRN SL Sodium Chloride 10 ML PRN PRN IV Sodium Chloride 10 ML PRN PRN IV Temazepam 15 MG QHSP PRN PO Sodium Chloride 25 ML PRN PRN IV 01/26 1500 01/26 2300 01/27 0700 Intake Total 600 240 Output Total 450 Balance 600 240 -450 Intake, Oral 600 240 Output, Urine 450 Last VS-Temp:98.0 B/P:169/64 Pulse:63 Resp:18 SaO2:99 ROOM AIR Last weight lbs:181 oz:0 K.101 Method:Bed Scales 02/01/17 CXR IMPRESSION: 1. No change left upper lobe nodule suspicious for neoplasm. 2. No change with no acute finding Exam General appearance: alert, no acute distress Cardiovascular: regular rate & rhythm, murmur Respiratory: clear to auscultation (bilat anterior and posterior) ABD: non-distended, soft, no tenderness, no guarding, bowel sounds present Extremities: no peripheral edema, no calf tenderness, discolored, dry patches on bilateral lower legs Assessment/Plan Problem List 1. Stented coronary artery Status: Acute 2. Chest pain Status: Acute 3. Hypokalemia Status: Acute 4. Lung mass Status: Chronic 5. Type 2 diabetes mellitus Status: Chronic 6. Hypertension Status: Chronic 7. COPD (chronic obstructive pulmonary disease) Status: Chronic 8. History of malignant neoplasm of prostate Status: Chronic 9. GERD (gastroesophageal reflux disease) Status: Chronic 10. Urinary stress incontinence, male Status: Chronic 11. Hypothyroid Status: Chronic 12. ASCVD (arteriosclerotic cardiovascular disease) Status: Chronic 13. Paroxysmal atrial fibrillation Status: Chronic 14. History of heart artery stent Patient condition Stable Plan: will discharge to long term when bed available This inpt stay is expected to cross 2 MNs from start of care No (Myah Parks APRN) Subjective Date 01/27/17 Assessment/Plan Problem List 1. Stented coronary artery Status: Acute 2. Chest pain Status: Acute 3. Hypokalemia Status: Acute 4. Lung mass Status: Chronic 5. Type 2 diabetes mellitus Status: Chronic 6. Hypertension Status: Chronic 7. COPD (chronic obstructive pulmonary disease) Status: Chronic 8. History of malignant neoplasm of prostate Status: Chronic 9. GERD (gastroesophageal reflux disease) Status: Chronic 10. Urinary stress incontinence, male Status: Chronic 11. Hypothyroid Status: Chronic 12. ASCVD (arteriosclerotic cardiovascular disease) Status: Chronic 13. Paroxysmal atrial fibrillation Status: Chronic 14. History of heart artery stent Plan: Pt seen and examined. Concur with above assessment and plan. (Tawny Wilson MD) at 0939 at [phone]
--- NOTE | 2017-01-27 09:39 | ACUTE CARE PROGRESS NOTE (QUA) ---
Progress Notes Subjective Date 01/27/17 Time 0926 Note patient states he feels alright; knows that he may go to [facility] today; Denies pain and SOB; voiding without problems; bowels moved 2 days ago; eating without problems; ambulates with his walker and has been OOB Objective Findings Laboratory Tests 01/27/17 0637: POC Glucose 157 H 01/26/17 2026: POC Glucose 191 H 01/26/17 1625: POC Glucose 192 H 01/26/17 1119: POC Glucose 252 H Vital Signs Date Time Temp Pulse Resp B/P Pulse O2 O2 Flow FiO2 Ox Delivery Rate 01/27 0835 98.0 63 18 169/64 99 ROOM AIR 01/27 0343 97.5 87 17 125/55 98 ROOM AIR 01/27 0319 94 ROOM AIR 01/27 0030 97.5 54 18 154/55 99 ROOM AIR 01/26 2010 97.7 60 18 119/66 96 01/26 1946 97.7 60 18 119/66 96 ROOM AIR 01/26 1630 98.1 65 20 113/55 96 ROOM AIR 01/26 1230 97.8 71 20 104/84 99 ROOM AIR Current Medications Temazepam 0 .STK-MED ONE PO (DCr) Insulin Human [rDNA origin] 0 .STK-MED ONE SC (DC) Insulin Human [rDNA origin] 0 .STK-MED ONE SC (DC) Potassium Chloride 20 MEQ TID PO Pantoprazole Sodium 40 MG QHS PO Tamsulosin HCl 0.4 MG QHS PO Diagnostic Test (Pha) 1 EACH W/MEALS&HS FS Insulin Human [rDNA origin] SEE ADMIN CRITERIA FOR MEDIUM INTENSITY W/MEALS&HS SC Sodium Chloride 1,000 ML .Q25H IV Amlodipine Besylate 10 MG DAILY PO Aspirin 81 MG DAILY PO Docusate Sodium 250 MG DAILY PO Donepezil HCl 5 MG DAILY PO Furosemide 40 MG DAILY PO Isosorbide Mononitrate 30 MG DAILY PO Levothyroxine Sodium 0.075 MG DAILY PO Patient Own Medication 1 UNIT DAILY PO Risperidone 0.25 MG BID PO Sodium Chloride 8 ML BID IV Ticagrelor 90 MG BID PO Ibuprofen 400 MG Q6H PRN PO Influenza Virus Vaccine Quadrival 0.5 ML PRN PRN IM Nicotine 21 MG DAILYP PRN TD Nitroglycerin 0.4 MG [id number] PRN SL Nitroglycerin 0.4 MG [id number] PRN SL Sodium Chloride 10 ML PRN PRN IV Sodium Chloride 10 ML PRN PRN IV Temazepam 15 MG QHSP PRN PO Sodium Chloride 25 ML PRN PRN IV 01/26 1500 01/26 2300 01/27 0700 Intake Total 600 240 Output Total 450 Balance 600 240 -450 Intake, Oral 600 240 Output, Urine 450 Last VS-Temp:98.0 B/P:169/64 Pulse:63 Resp:18 SaO2:99 ROOM AIR Last weight lbs:181 oz:0 K.101 Method:Bed Scales 02/01/17 CXR IMPRESSION: 1. No change left upper lobe nodule suspicious for neoplasm. 2. No change with no acute finding Exam General appearance: alert, no acute distress Cardiovascular: regular rate & rhythm, murmur Respiratory: clear to auscultation (bilat anterior and posterior) ABD: non-distended, soft, no tenderness, no guarding, bowel sounds present Extremities: no peripheral edema, no calf tenderness, discolored, dry patches on bilateral lower legs Assessment/Plan Problem List 1. Stented coronary artery Status: Acute 2. Chest pain Status: Acute 3. Hypokalemia Status: Acute 4. Lung mass Status: Chronic 5. Type 2 diabetes mellitus Status: Chronic 6. Hypertension Status: Chronic 7. COPD (chronic obstructive pulmonary disease) Status: Chronic 8. History of malignant neoplasm of prostate Status: Chronic 9. GERD (gastroesophageal reflux disease) Status: Chronic 10. Urinary stress incontinence, male Status: Chronic 11. Hypothyroid Status: Chronic 12. ASCVD (arteriosclerotic cardiovascular disease) Status: Chronic 13. Paroxysmal atrial fibrillation Status: Chronic 14. History of heart artery stent Patient condition Stable Plan: will discharge to [facility] when bed available This inpt stay is expected to cross 2 MNs from start of care No (Myah Parks APRN) Subjective Date 01/27/17 Assessment/Plan Problem List 1. Stented coronary artery Status: Acute 2. Chest pain Status: Acute 3. Hypokalemia Status: Acute 4. Lung mass Status: Chronic 5. Type 2 diabetes mellitus Status: Chronic 6. Hypertension Status: Chronic 7. COPD (chronic obstructive pulmonary disease) Status: Chronic 8. History of malignant neoplasm of prostate Status: Chronic 9. GERD (gastroesophageal reflux disease) Status: Chronic 10. Urinary stress incontinence, male Status: Chronic 11. Hypothyroid Status: Chronic 12. ASCVD (arteriosclerotic cardiovascular disease) Status: Chronic 13. Paroxysmal atrial fibrillation Status: Chronic 14. History of heart artery stent Plan: Pt seen and examined. Concur with above assessment and plan. (Tawny Wilson MD) at 0939 at [phone]
[2017-01-27 12:16] VITALS: BP 97/52
[2017-01-27] MEDS ORDERED: K-DUR 20MEQ TA20 MEQ PO (13:56)
[2017-01-27] MEDS ORDERED: ARICEPT 5MG TAB5 MG PO (13:58)
[2017-01-27] MEDS ORDERED: AMLODIPINE10 M2 PO (14:00)
--- NOTE | 2017-01-27 14:32 | DISCHARGE SUMMARY STANDARD ---
Discharge Summary ([facility]2) Date of admission: 01/22/17 Date of discharge: 01/27/17 Problem List: 1. Stented coronary artery 2. Chest pain 3. Hypokalemia 4. Lung mass 5. Type 2 diabetes mellitus 6. Hypertension 7. COPD (chronic obstructive pulmonary disease) 8. History of malignant neoplasm of prostate 9. GERD (gastroesophageal reflux disease) 10. Urinary stress incontinence, male 11. Hypothyroid 12. ASCVD (arteriosclerotic cardiovascular disease) 13. Paroxysmal atrial fibrillation 14. History of heart artery stent History of present illness: Mr. Rodriguez is an 81 yo WM with CAD and recent admission for stenting to LAD and RCA due to possible need for lung cancer surgery. He described a pain in his anterior lower chest without radiation. It was associated with shortness of breath. He denied nausea and diaphoresis. He stated that he had a similar pain in A a week ago and was started on nitroglycerin. His pain was becoming worse and he was having to take 2-3 nitroglycerin at a time. He said he had about 10 minutes of chest pain the previous night and then also had chest pain the following morning. He was pain-free in the ER on presentation. EKG showed A. flutter with rates in the 75-125 bpm range. He was admitted and Cardiology was consulted for further evaluation. Pt was given NTG SL X 2 in ER with improvement in symptoms. No acute EKG changes noted. Exam on admission: Vital signs: 1ST Vital Signs Result Date Time Pulse Ox 97 01/23 928 B/P 143/88 01/23 928 Temp 97.8 01/23 928 Pulse 92 01/23 928 Resp 18 01/23 928 O2 Delivery ROOM AIR 01/22 1047 Exam: General appearance: alert, awake, no acute distress Eyes: EOM's w/normal ROM, PERRLA ENT: mucous membranes moist, nose normal, pharynx normal Neck: non-tender, no carotid bruit, full range of motion, supple Cardiovascular: irregularly irregular Respiratory: clear to auscultation ABD: non-distended, normal bowel sounds, no rebound, soft, no tenderness, no guarding Extremities: no peripheral edema Musculoskeletal: equal muscle strength, motor intact, sensation intact Skin: normal color Neuro: normal mood/affect, oriented, speech clear Hospital Course: Patient was seen by cardiology on admission. After being given IV metoprolol and PO dose, heart rate improved and so did the chest pain. Pt stabilized and was admitted with plan to proceed with cardiac cath the next AM. Telemetry showed atrial fibrillation with slow rate in the 40's, therefore further beta blockers were held. Home meds were resumed except for digoxin. KCL was initiated for hypokalemia Patient did have a cardiac cath 01/23/17 with KATHRYN to the RCA. He did convert to a sinus rhythm. He was confused at times but this did improve. He did experience sinus albert with some CP relieved with NTG. discussed disposition with patient's son and decided on short term rehab at [facility] when bed became available. Patient ambulated to the bathroom with his walker. He became more alert and seemed stronger. On 01/27/17 bed was available and he was discharged to [facility] for rehab. Condition at D/C was stable and satisfactory. Cognition was fair. Rehab potential was fair. Laboratory data this visit: 01/22/17 1155: POC Glucose 177 H 01/23/17 0746: Sodium 142, Potassium 3.2 L, Chloride 107, Carbon Dioxide 28, BUN 10, Creatinine 0.9, Estimated Creat Clear 76, Estimated GFR (MDRD) 81, Glucose 176 H, Calcium 9.0 01/23/17 0653: POC Glucose 146 H 01/22/17 2047: POC Glucose 141 H 01/22/17 1839: Sodium 143, Potassium 2.6 *L, Chloride 106, Carbon Dioxide 28, BUN 10, Creatinine 0.9, Estimated Creat Clear 76, Estimated GFR (MDRD) 81, Glucose 141 H, Calcium 8.9 01/22/17 1701: POC Glucose 235 H 01/22/17 1155: POC Glucose 177 H 01/22/17 0935: Sodium 139, Potassium 2.4 *L, Chloride 102, Carbon Dioxide 29, BUN 9, Creatinine 1.0, Estimated Creat Clear 68, Estimated GFR (MDRD) 72, Glucose 255 H, Calcium 9.1, Total Bilirubin 0.8, AST 11 L, ALT 12, Alkaline Phosphatase 88, Creatine Kinase 55, CK-MB (CK-2) Rel Index 3.1, CK and CKMB Interp 1.7, Troponin I < 0.02 , Total Protein 7.2, Albumin 3.8, Globulin 3.4 H, Albumin/Globulin Ratio 1.1, WBC 9.4, RBC 4.84, Hgb 12.5 L, Hct 39.0 L, MCV 80.6 L, RDW 14.6, Plt Count 324, MPV 6.7 L, Gran % 72.7, Gran # 6.8, Lymphocytes % 19.6, Monocytes % 4.8, Eosinophils % 2.3, Basophils % 0.6, Lymphocytes # 1.8, Monocytes # 0.5, Eosinophils # 0.2, Basophils # 0.1, PUBS MCHC 32.1, MCH 25.9 L 01/26/17 1119: POC Glucose 252 H 01/26/17 0612: POC Glucose 142 H 01/26/17 0545: Sodium 139, Potassium 3.0 L, Chloride 104, Carbon Dioxide 30, BUN 16, Creatinine 0.8, Estimated Creat Clear 86, Estimated GFR (MDRD) 93, Glucose 146 H, Calcium 8.9, WBC 7.4, RBC 4.03 L, Hgb 10.5 L, Hct 32.7 L, MCV 81.0 L, RDW 15.1, Plt Count 267, MPV 7.1 L, Gran % 62.8, Gran # 4.7, Lymphocytes % 26.5, Monocytes % 6.9, Eosinophils % 3.1, Basophils % 0.6, Lymphocytes # 2.0, Monocytes # 0.5, Eosinophils # 0.2, Basophils # 0.1, PUBS MCHC 32.1, MCH 26.0 L 01/25/17 2113: POC Glucose 188 H Imagin01/22/17 CXR IMPRESSION: 1. No change left upper lobe nodule suspicious for neoplasm. 2. No change with no acute finding 01/23/17 Cardiac cath IMPRESSION: 1. Widely patent stent in the proximal LAD with nonflow limiting disease throughout the LAD 2. Mild to moderate nonflow limiting disease in the circumflex artery 3. Severe ostial proximal right coronary artery disease with successful stenting reducing the disease to 0% with 1 drug-eluting stent 4. Normal ejection fraction 5. Mildly elevated LVEDP PLAN: 1. Brilinta and aspirin 2. LDL less than 55 3. Risk factor modification 4. Cardiac Rehabilitation 5. Avoidance of tobacco products Discharge medications: Stop taking the following medications: POTASSIUM CHL (Potassium Chloride) 10 MEQ TABLET.ER ORAL DAILY Losartan Potassium (Losartan 100MG) 100 MG TABLET ORAL DAILY Ibuprofen (MOTRIN 800MG (generic) Tablet) 800 MG TABLET ORAL THREE TIMES A DAY Continue taking these medications: Aspirin (Aspirin EC) 81 MG TABLET. 81 MILLIGRAM ORAL DAILY Furosemide (Furosemide 40MG) 40 MG TABLET 40 MILLIGRAM ORAL DAILY Levothyroxine Sodium (Levothyroxine 0.075MG) 75 MCG TABLET 0.075 MILLIGRAM ORAL DAILY TAMSULOSIN HCL (Flomax 0.4MG) 0.4 MG CAP.ER.24H 0.4 MILLIGRAM ORAL AT BEDTIME NIGHTLY Risperidone (Risperdal 0.25MG Tab) 0.25 MG TABLET 0.25 MILLIGRAM ORAL TWICE A DAY Pantoprazole Sodium (Pantoprazole Sodium) 40 MG TABLET.DR 40 MILLIGRAM ORAL AT BEDTIME NIGHTLY Qty = 30 Isosorbide Mononitrate (Isosorbide Mononitrate ER) 30 MG TAB.ER.24H 30 MILLIGRAM ORAL DAILY Qty = 30 Ticagrelor (Brilinta) 90 MG TABLET 90 MILLIGRAM ORAL TWICE A DAY Qty = 60 Mirtazapine (Remeron) 15 MG TAB.RAPDIS 15 MILLIGRAM ORAL AT BEDTIME NIGHTLY Qty = 30 Start taking the following new medications: POTASSIUM CHL (Potassium Chloride) 20 MEQ TAB.ER.PRT 20 Milliequivalent ORAL TWICE A DAY Qty = 60 No Refills DONEPEZIL HCL (Aricept 5MG) 5 MG TABLET 5 MILLIGRAM ORAL DAILY Qty = 30 No Refills The following medications have been changed: Old: Amlodipine Besylate (Amlodipine) 10 MG TABLET 5 MILLIGRAM ORAL DAILY New: Amlodipine Besylate (Amlodipine) 10 MG TABLET 10 MILLIGRAM ORAL DAILY Qty = 30 Disposition: Patient discharged to [facility] in stable and satisfactory condition. To continue with meds as per reconciliation sheet. PT and OT to evaluate and treat. To continue with same diet and activity level. Labs: BMP in one week Dr. Shields to follow while in rehab. Also to FU with Dr. Horner in 1-2 weeks at 1433
[2017-01-27 15:03] VITALS: BP 97/52
== END 2017-01-27 15:00 ==
LOC: ER 09:25 → 2ND 10:28 → ICU 01-23 17:13 → 2ND 01-23 17:13
PROVIDERS: Emergency Medicine; Family Medicine; Internal Medicine
PROC: B2151ZZ Fluoroscopy of Left Heart using Low Osmolar Contrast (ICD-10-PCS; principal; 2017-01-23 09:45)
PROC: B2111ZZ Fluoroscopy of Multiple Coronary Arteries using Low Osmolar Contrast (ICD-10-PCS; principal; 2017-01-23 09:45)
PROC: 4A023N7 Measurement of Cardiac Sampling and Pressure, Left Heart, Percutaneous Approach (ICD-10-PCS; principal; 2017-01-23 09:45)
PROC: 027034Z Dilation of Coronary Artery, One Artery with Drug-eluting Intraluminal Device, Percutaneous Approach (ICD-10-PCS; principal; 2017-01-23 09:45)
DX: I25.119 Atherosclerotic heart disease of native coronary artery with unspecified angina pectoris (principal); Z72.0 Tobacco use; I10 Essential (primary) hypertension; C34.12 Malignant neoplasm of upper lobe, left bronchus or lung; J44.9 Chronic obstructive pulmonary disease, unspecified
CPT/HCPCS: G8978; G8979; G8980; C1725; C1769; C1876; G0378; J1644; Q9967